=== PATIENT | male | born 1945 | race Caucasian/White ===

== ENCOUNTER → 2018-07-23 07:42 | Outpatient (CLI) | payer SELFPAY ==
[2018-07-16 10:25] VITALS: BMI 24.8
--- NOTE | 2018-07-23 07:52 | CT_ITS ---
STUDY: CT ABDOMEN AND PELVIS WITH CONTRAST REASON FOR EXAM: Male, 72 years old. Lymphocytosis on pre-op blood work. Left inguinal herniorrhaphy scheduled. RADIATION DOSAGE (If Supplied By Facility): CTDIvol = ( 15.13 ) mGy, DLP = ( 1455.48 ) mGycm TECHNIQUE: Transaxial images were obtained from the dome of the diaphragm to the symphysis pubis with oral contrast. 75mL ml of Isovue 300 contrast was administered. Sagittal and coronal images were reconstructed. Individualized dose optimization techniques were used for this CT. COMPARISON: CT of the chest, July 23, 2018. FINDINGS: The visualized lung bases are unremarkable. The visualized portions of the heart are within normal limits. Normal liver. Normal gallbladder and extrahepatic biliary system. Normal spleen. Normal pancreas. Normal bilateral adrenal glands. The right kidney is of normal size and enhancement. There are parapelvic cysts versus mild pelvocaliectasis. There is a 1.9 cm lower pole cortical cyst. No renal calculi. Normal visualized right ureter. The left kidney is of normal size and cortical thickness. There is normal contrast enhancement. There are multiple parapelvic renal cysts without renal calculi or hydronephrosis. Normal visualized left ureter. Normal visualized stomach. Normal small intestine. Normal colon. There is non-visualization of the appendix. Is minimal atherosclerotic changes of the abdominal aorta without aneurysm or dissection. Normal inferior vena cava. Normal retroperitoneum. Normal urinary bladder. Prostate is enlarged. There is no pelvic lymphadenopathy. No free air or free fluid is seen within the peritoneal cavity. There are bilateral inguinal hernias of omental fat. The left extends downward into the scrotum. Abdominal wall is otherwise unremarkable. There are diffuse degenerative changes of the visualized lumbar spine. CT/Abdomen/Pelvis WITH Contrast IMPRESSION: 1. Bilateral peripelvic and cortical cysts without other evidence of renal, ureteral or urinary bladder abnormality. 2. Enlarged prostate. 3. Bilateral inguinal hernias. 4. No other evidence of abdominal or pelvic abnormality. Electronically Signed: Shaggy Parr DO at 20:04 EST Tel [phone], Service support ,
--- NOTE | 2018-07-23 07:52 | CT_ITS ---
STUDY: CT SOFT TISSUE NECK WITH CONTRAST REASON FOR EXAM: Male, 72 years old. Lymphocytosis on pre-op blood work. Scheduled for left inguinal herniorrhaphy tomorrow. RADIATION DOSAGE (If Supplied By Facility): CTDIvol = ( 15.13 ) mGy, DLP = ( 1455.48 ) mGycm TECHNIQUE: The patient was scanned in a multi-detector CT scanner. High resolution transaxial imaging was performed following intravenous administration of 75mL ml of Isovue 300 contrast material. Sagittal and coronal images were reconstructed. Individualized dose optimization techniques were used for this CT. COMPARISON: None. FINDINGS: Normal bilateral parotid glands. Normal bilateral manager company spaces. Normal bilateral parapharyngeal spaces. Normal bilateral carotid spaces. Normal bilateral sublingual and submandibular glands and spaces. Normal visualized nasopharynx. Normal retropharyngeal space. Normal perivertebral space. There is mild prominence of the lateral faucial tonsil. The visualized tongue, tongue base and oropharynx are normal. The visualized cervical lymph nodes (levels I-) are within normal size limits, and maintain normal morphology. There is no demonstrated solid or cystic mass lesion. There is no abnormal contrast enhancement. Normal epiglottis, bilateral vallecula and hypopharynx. The pre-epiglottic and paraglottic adipose spaces are normal. Normal visualized bilateral piriform sinuses, aryepiglottic folds, vocal cords, and arytenoid-cricoid articulations. Normal subglottic trachea. Normal bilateral lobes of the thyroid gland. Normal visualized pulmonary apices. Normal visualized paranasal sinuses. There is multilevel degenerative changes of the cervical spine. CT/Soft Tissue Neck WITH Contrast IMPRESSION: 1. Mild prominence left tonsil. There is no other evidence of abnormality of the soft tissues of the neck. 2. Mild degenerative changes of the cervical spine. Electronically Signed: Shaggy Parr DO at 17:06 EST Tel [phone], Service support ,
--- NOTE | 2018-07-23 07:52 | CT_ITS ---
STUDY: CT CHEST WITH CONTRAST REASON FOR EXAM: Male, 72 years old. Lymphocytosis on pre-op blood work. Left inguinal herniorrhaphy scheduled for tomorrow. RADIATION DOSAGE (If Supplied By Facility): CTDIvol = ( 15.13 ) mGy, DLP = ( 1455.48 ) mGycm TECHNIQUE: Transaxial imaging was performed following intravenous administration of 75mL ml of Isovue 300 contrast material. Multiplanar coronal and sagittal images were reformatted. Individualized dose optimization techniques were used for this CT. COMPARISON: None. FINDINGS: The lungs are normal. There is no demonstrated pleural abnormality. Normal heart and pericardium. There are calcifications of the coronary arteries. There is nonspecific subcentimeter mediastinal lymphadenopathy. Normal hilar regions. Normal enhanced pulmonary arteries. There is minimal atherosclerotic tortuosity of the thoracic aorta without aneurysm or dissection. There are multi-level degenerative changes of the thoracic spine. There is no demonstrated abnormality of the visualized upper abdomen. CT/Chest WITH Contrast IMPRESSION: 1. No acute pulmonary abnormality. 2. Nonspecific subcentimeter mediastinal lymphadenopathy. 3. Atherosclerotic changes of the thoracic aorta and coronary arteries. 4. Mild degenerative changes of the thoracic spine. Electronically Signed: Shaggy Parr DO at 17:01 EST Tel [phone], Service support ,
== END ==
PROVIDERS: Family Provider Family Medicine; PCP Family Medicine; Referring Provider Internal Medicine Medical Oncology; Visit Provider Internal Medicine Medical Oncology
DX: D72.820 Lymphocytosis (symptomatic) (principal)
CPT/HCPCS: 70491; 71260; 74177; Q9967

== ENCOUNTER 2018-07-27 08:43 | Day surgery (SDC) | payer SELFPAY ==
[2018-07-13 13:15] VITALS: BMI 24.0
--- NOTE | 2018-07-13 15:00 | EKG12_ITS ---
Test Reason : PRE OP Blood Pressure : / mmHG Vent. Rate : 068 BPM Atrial Rate : 068 BPM P-R Int : 126 ms QRS Dur : 106 ms QT Int : 410 ms P-R-T Axes : 062 072 060 degrees QTc Int : 435 ms Normal sinus rhythm Normal ECG Confirmed by CHELSEA VALENTE, LINDA ([id number]), newspaper managing editor ISABELA RODRIGUEZ ([id number]) on 07/14/2018 3:56:09 PM Referred By: Anthony Evans Confirmed By:LINDA TRAN MD
[2018-07-13 16:11] LABS: Hematocrit 44.4 % (40-54); Hemoglobin 14.5 g/dl (13.0-16.5); Mean Corp Hgb Conc 32.7 g/gl (32-36); Mean Corpuscular Hgb 32.4 pg (27.0-32.0); Mean Corpuscular Volume 99.3 fL (80-94); Mean Platelet Vol. 9.7 fl (6.2-12.0); Platelet Count 283 K/mm3 (150-450); RBC Distribution Width CV 14.8 % (11.6-14.6); RBC Distribution Width SD 52.5 fl (35.1-43.9); Red Blood Count 4.47 M/mm3 (4.6-6.2)
[2018-07-13 16:16] LABS: Scan Indicated on CBC? Y/N YES- FLAGS NOTED; White Blood Count 39.7 K/mm3 (4.4-11.0)
[2018-07-13 16:30] LABS: Anion Gap 6 (5-15); BUN 19 mg/dL (7-18); BUN/Creat Ratio 20.2 RATIO (10-20); Calcium,Total 8.4 mg/dL (8.5-10.1); Chloride 105 mmol/L (98-107); Creatinine, Serum 0.94 mg/dL (0.70-1.30); EST Glomerular Filtration Rate 84 mL/min (>60); Est Glom Filt Rate - Afr Amer 102 mL/min (>60); Glucose 87 mg/dL (74-106); Sodium Level 141 mmol/L (136-145)
[2018-07-13 16:34] LABS: Differential Comment SCANNED
[2018-07-14 12:09] LABS: Pathologist Review Reviewed
[2018-07-16 10:25] VITALS: BMI 24.8
[2018-07-27] VITALS (10 sets, daily range): BP systolic 101–143; BP diastolic 53–73; PULSE 52–77; RESP 15–16; TEMP 36.1–36.8; O2SAT 92–100; BMI 24.9
[2018-07-27] MEDS: Cefazolin 2 GM in 0.9% Normal Saline 100 ML IV (10:48)
--- NOTE | 2018-07-27 10:48 | DCINST_ITS ---
Discharge Diet: Light diet - advance as tolerated - if you have questions about your diet instructions, please talk to you doctor. Discharge Activity: May Not Drive - for 1 week or while taking narcotic pain medicine. May shower in (days): 1 Lifting Restrictions: 10 pounds Call your doctor if your incision/area has: Continuous Slow Oozing, Sudden Increased Bleeding, Increased Pain/ Swelling, Increased Redness, Foul Smelling Discharge Call your doctor if you observe: Fever of 101 or Higher Suture Line Care: Avoid Pulling/Pushing, Avoid Pinching/Bending Additional Dressing/Incision Instructions:: Change or remove dressing in 4 days. Leave steri-strips in place for 1 week. Allergies/Adverse Reactions: Allergies No Known Allergies Allergy (Verified 07/22/18 16:34) Medications to take at Discharge Tamsulosin HCl [Flomax] 0.4 mg PO DAILY 07/22/18 Oxycodone HCl/Acetaminophen [Percocet 5/325] 1 tablet PO Q6H PRN PRN 3 Days #8 tablet 07/27/18 The following prescriptions were given: Oxycodone HCl/Acetaminophen [Percocet 5/325] 1 tablet PO Q6H PRN PRN 3 Days #8 tablet PRN Reason: Pain Primary Care Physician: Peterson Landrum MD [Primary Care Provider] - Test Results: Test results from this visit will be discussed in further detail at your follow- up appointment, if applicable. Please Follow Up With: Anthony Evans MD - [phone] When: Call to make an appointment to be seen in about 10 days.
[2018-07-27] MEDS: Bupivacaine Mpf 0.5% 30 ML VIAL (12:00)
--- NOTE | 2018-07-27 12:09 | PCM.OPRPT ---
Problem List (1) Recurrent right inguinal hernia Status: Acute (2) Left inguinal hernia Status: Acute Report of Operation Date of Procedure: 07/27/18 Pre-Operative Diagnosis: Recurrent indirect right inguinal hernia. New indirect left inguinal hernia Post-Operative Diagnosis: Same Surgery/Procedure Performed:: Laparoscopic recurrent right inguinal herniorrhaphy. Laparoscopic left inguinal herniorrhaphy Description of Surgical Findings:: Timeout and informed consent was obtained. 72-year-old gent was taken the operative placement table underwent general endotracheal intubation anesthesia. Ancef 2 g given intravenously preoperatively. The abdomen was sterilely prepped and draped. 30 cc of 0.5% Marcaine was used as a local anesthetic. Skin sites were pre-anesthetized. A vertical infraumbilical incision was created and holding sutures of 0 Vicryl placed. Veress needle inserted. Saline drop test performed. The abdomen insufflated with CO2 to a pressure of 10 mmHg pressure. 10mm trocar inserted. 10 mm scope inserted. No evidence of any trocar injuries. There is evidence of a recurrent indirect right inguinal hernia and a very large indirect left inguinal hernia. 5 mm trochars were placed in both the right and left lower quadrant. The peritoneum superior and lateral to the right internal ring was incised carried medially. There was scar tissue that was sharply transected free to transecting released the peritoneum this was completely dissected free set at the pubic tubercle internal ring direct space femoral area was completely identified. I then onur a similar tension in the left groin and the peritoneum superior lateral to the internal ring was incised and carried medially. Again that tissue was dissected free however the patient has a very large indirect left inguinal hernia with a very large sac. I teased the sac free absolutely as far as possible but then it became apparent that the sac was not going to easily free itself so I elected to transect the distal portion. I used electrified scissors to slowly carefully transect the peritoneal sac. The distal end was allowed to retract into the scrotum. I used hemo-lock clips were needed. The sac was then nicely transected and then I could complete the dissection. As on the right the indirect direct and femoral area were clearly identified. I then placed a large 3D Bard max mesh on the right and a similar product on the left. The right mesh was lot number [id number]. Reference #[id number]. Expiry date 05/15/2023. The left product was lot number [id number] [id number]. Reference #[id number]. Expiry date 05/15/2023. I then used secure strap lot number [id number] expiry date 11/2019. The mesh nicely rested in place bilaterally covering direct indirect and femoral areas. The mesh nicely briefly overlapped in the retropubic area. It was secured superiorly and medially with a secure strap. Very good positioning was achieved. The peritoneum was approximated to itself bilaterally to completely obliterate access to the mesh. The sac was so large that it remnant hung down and did not need to have the defect area repaired. It is of note that additionally at the beginning of the case of a ilioinguinal nerve block was performed under laparoscopic control bilaterally. Trochars were removed under visualization. The abdomen was allowed to deflate of the CO2. The fascia at the umbilicus approximated with a couple 0 Vicryl [id number] sutures. Skin edges approximated up to 4 Monocryl subdermal stitches. Steri-Strips and Telfa and OpSite dressings were applied. Sponge and instrument and needle counts were reported the surgeon be correct. Blood loss was minimal. Specimens none. Drains none. Blood loss minimal. Anthony Evans M.D., F.A.C.S. Type of Anesthesia:: General Anesthesiologist: Jaxon Cueva
--- NOTE | 2018-07-27 12:14 | OP.PCM_ITS ---
Problem List (1) Recurrent right inguinal hernia Status: Acute (2) Left inguinal hernia Status: Acute Report of Operation Date of Procedure: 07/27/18 Pre-Operative Diagnosis: Recurrent indirect right inguinal hernia. New indirect left inguinal hernia Post-Operative Diagnosis: Same Surgery/Procedure Performed:: Laparoscopic recurrent right inguinal herniorrhaphy. Laparoscopic left inguinal herniorrhaphy Description of Surgical Findings:: Timeout and informed consent was obtained. 72-year-old gent was taken the operative placement table underwent general endotracheal intubation anesthesia. Ancef 2 g given intravenously preoperatively. The abdomen was sterilely prepped and draped. 30 cc of 0.5% Marcaine was used as a local anesthetic. Skin sites were pre-anesthetized. A vertical infraumbilical incision was created and holding sutures of 0 Vicryl placed. Veress needle inserted. Saline drop test performed. The abdomen insufflated with CO2 to a pressure of 10 mmHg pressure. 10mm trocar inserted. 10 mm scope inserted. No evidence of any trocar injuries. There is evidence of a recurrent indirect right inguinal hernia and a very large indirect left inguinal hernia. 5 mm trochars were placed in both the right and left lower quadrant. The peritoneum superior and lateral to the right internal ring was incised carried medially. There was scar tissue that was sharply transected free to transecting released the peritoneum this was completely dissected free set at the pubic tubercle internal ring direct space femoral area was completely identified. I then onur a similar tension in the left groin and the peritoneum superior lateral to the internal ring was incised and carried medially. Again that tissue was dissected free however the patient has a very large indirect left inguinal hernia with a very large sac. I teased the sac free absolutely as far as possible but then it became apparent that the sac was not going to easily free itself so I elected to transect the distal portion. I used electrified scissors to slowly carefully transect the peritoneal sac. The distal end was allowed to retract into the scrotum. I used hemo-lock clips were needed. The sac was then nicely transected and then I could complete the dissection. As on the right the indirect direct and femoral area were clearly identified. I then placed a large 3D Bard max mesh on the right and a similar product on the left. The right mesh was lot number [id number] QUALITY [id number] [id number]. Reference #[id number]. Expiry date 05/15/2023. The left product was lot number CHEMISTRY QUALITY CONTROL ANALYST [id number]. Reference #[id number]. Expiry date 05/15/2023. I then used secure strap lot number [id number] expiry date 11/2019. The mesh nicely rested in place bilaterally covering direct indirect and femoral areas. The mesh nicely briefly overlapped in the retropubic area. It was secured superiorly and medially with a secure strap. Very good positioning was achieved. The peritoneum was approximated to itself bilaterally to completely obliterate access to the mesh. The sac was so large that it remnant hung down and did not need to have the defect area repaired. It is of note that additionally at the beginning of the case of a ilioinguinal nerve block was performed under laparoscopic control bilaterally. Trochars were removed under visualization. The abdomen was allowed to deflate of the CO2. The fascia at the umbilicus approximated with a couple 0 Vicryl [id number] sutures. Skin edges approximated up to 4 Monocryl subdermal stitches. Steri-Strips and Telfa and OpSite dressings were applied. Sponge and instrument and needle counts were reported the surgeon be correct. Blood loss was minimal. Specimens none. Drains none. Blood loss minimal. Anthony Evans M.D., F.A.C.S. Type of Anesthesia:: General Anesthesiologist: Jaxon Cueva
[2018-07-27] MEDS: HYDROcodone Bitartrate/Apap 5/325 Tablet PO (14:31)
== END 2018-07-27 16:00 | disposition home or self-care (01) ==
LOC: SDC 08:44 → AC 08:45
PROVIDERS: Family Provider Family Medicine; PCP Family Medicine; Referring Provider Surgery; Visit Provider Surgery
PROC: (CPT 49650; principal; 2018-07-27 10:45)
DX: K40.91 Unilateral inguinal hernia, without obstruction or gangrene, recurrent (principal); K40.90 Unilateral inguinal hernia, without obstruction or gangrene, not specified as recurrent; R33.9 Retention of urine, unspecified; D72.820 Lymphocytosis (symptomatic)
CPT/HCPCS: 00840; 49650; 49651; 36415; 80048; 85027; 93005; J7120; C1781; J2405

== ENCOUNTER 2024-04-13 14:24 | Inpatient (IN) | payer OTHER, SELFPAY ==
[2024-04-13] VITALS (7 sets, daily range): BP systolic 121–142; BP diastolic 67–85; PULSE 60–69; RESP 15–18; TEMP 36.2–36.6; O2SAT 96–99; BMI 23.9; BMI 23.3
--- NOTE | 2024-04-13 15:11 | EDS_ITS ---
HPI History of Present Illness Chief Complaint: Chest Pain Informant: patient Onset/Context/Timing Onset: Weeks (2) Activity at onset: sudden Timing: Intermittent and Lasts (5 to 10 minutes) Quality: Positive for Tightness Location: Left Chest Worsened By: Nothing Relieved By: Nothing Associated Symptoms: Positive for Palpitations; Negative for Nausea, Vomiting, Diaphoresis, Dyspnea, Cough, Fever, Lightheadedness or Acid Reflux Narrative Narrative: Patient presents with chest pain that has been intermittent over the last 2 weeks. Patient states that the pain comes on rather suddenly. Patient is lasted approximately 5 to 10 minutes. The patient describes it as a tightness. Patient states it is over the left side of his chest. Patient states nothing makes it better and nothing makes it worse. Patient admits to some palpitations with this. Patient denies any nausea or vomiting. Patient denies any shortness of breath. Patient denies any cough or fever. CVD Risk Factors: Negative for Hypertension, Diabetes, Hypercholesterolemia, Family History 1' </=55 or Smoking PE Risk Factors: Positive for Cancer; Negative for Recent Travel/Surgery, Recent Immobilization or Prior DVT or PE PFSH [facility] Medical History (Updated 04/13/24 @ 18:[address] Yevgeniy Buckner DO) CLL (chronic lymphocytic leukemia) Urinary retention Left inguinal hernia Recurrent right inguinal hernia Arthritis Allergy/AdvReac Type Severity Reaction Status Date / Time No Known Allergies Allergy Verified 04/13/24 14:25 Family History Mother Breast cancer Surgical History History of hernia repair (~07/2018) History of nasal surgery Hx of bone graft Hx of right inguinal hernia repair Hx of appendectomy Social History household members: spouse housing: house Smoking Status: Never smoker second hand exposure: No alcohol intake: never substance use type: does not use caffeine: Yes what type of physical activity do you participate in: bicycling frequency: 5-6 times per week seatbelt use: always ROS ROS ED Constitutional Constitutional ED: Denies chills or fever(s) Eyes Eyes: Denies blurry vision or change in vision ENT ENT ED: Denies rhinorrhea or sore throat Cardiovascular Cardiovascular: Reports chest pain and palpitations Respiratory/Chest Respiratory/Chest: Denies cough or dyspnea Gastrointestinal Gastrointestinal: Denies nausea or vomiting Genitourinary Genitourinary ED: Denies dysuria or hematuria Musculoskeletal Musculoskeletal: Denies back pain or neck pain Integumentary Denies abscess or rash Neurologic Neurologic: Denies headache(s) or weakness Allergic/Immunologic Allergic/Immunologic ED: Denies mouth swelling or urticaria EXAM Physical Exam Const Vital Signs: 04/13/24 14:25 04/13/24 15:46 04/13/24 16:25 Temperature 97.2 F L Temperature Source Temporal Pulse Rate 69 60 Respiratory Rate 17 15 Blood Pressure 140/85 H 142/71 H Blood Pressure Mean 103 94 Pulse Ox 96 98 99 Oxygen Delivery Method Room Air Room Air Room Air 04/13/24 18:00 Temperature Temperature Source Pulse Rate 64 Respiratory Rate 16 Blood Pressure 121/76 H Blood Pressure Mean 91 Pulse Ox 96 Oxygen Delivery Method Room Air Positive well nourished and well developed General Appearance ED: well developed and NAD HEENT Reports moist mucous membranes Neck supple and no JVD Chest Wall palpation of chest normal Resp normal respiratory effort and clear to auscultation bilaterally Cardio regular rate and regular rhythm GI soft to palpation, non-tender and non-distended Neuro oriented x3, CN's II-XII intact bilaterally and no sensory deficits noted Sensorium / Orientation: awake and alert Motor Exam: strength 5/5 throughout Psych mental status grossly normal Heart Score History: Slightly/Non-Suspicious ECG: Nonspecific Repolarization Age: >/= 65 years Risk Factors: No Risk Factors Troponin: >1 - <3 Normal Limit Score: 4 MDM MDM MDM Narrative Medical decision making narrative: Differential diagnosis includes cardiac dysrhythmia, cardiac ischemia, pneumonia, pneumothorax, electrolyte abnormality, pulmonary embolism, and anxiety. EKG will be obtained to assess for cardiac dysrhythmia and cardiac ischemia. Chest x-ray will be obtained to assess for pneumonia and pneumothorax. CBC will be obtained to assess for leukocytosis and anemia. Basic metabolic profile will be obtained to assess for electrolyte abnormality and renal function. High-sensitivity troponin will be obtained to assess for cardiac ischemia. 2-hour repeat high-sensitivity troponin will be obtained to assess for ongoing cardiac ischemia. D-dimer will be obtained to assess for pulmonary embolism. History & Record Review Additional record(s) reviewed:: Prior labs Lab Data Attestation: I reviewed the patient's lab results. Lab results narrative: CBC was reviewed. There is a leukocytosis of 64.0. This is consistent with previous results. Platelets were normal. D-dimer was reviewed and was elevated 2.65. Basic metabolic profile was reviewed and was essentially within normal limits. Initial high-sensitivity troponin was reviewed and was slightly elevated at 82. 2-hour repeat high-sensitivity troponin was reviewed and was slightly elevated at 88. Labs: Laboratory Results - last 24 hr 04/13/24 04/13/24 14:35 17:28 WBC 64.0 H* RBC 4.19 L Hgb 13.5 Hct 42.0 MCV 100.2 H MCH 32.2 H MCHC 32.1 RDW Std Deviation 55.8 H RDW Coeff of Praneeth 15.1 H Plt Count 261 MPV 10.1 Immature Gran % (Auto) 0.200 Neut % (Auto) 7.4 L Lymph % (Auto) 89.2 H [place] % (Auto) 2.6 Eos % (Auto) 0.2 Baso % (Auto) 0.4 Absolute Neuts (auto) 4.7 Absolute Lymphs (auto) 57.13 H Nucleated RBC % 0 Differential Comment SCANNED Diff Path Review May foll Smudge Cells 1+ H D-Dimer Quant (PE/DVT) 2.65 H* Sodium 139 Potassium 4.3 Chloride 107 Carbon Dioxide 28.0 Anion Gap 4 L BUN 20 H Creatinine 0.92 Estim Creat Clear Calc 57.20 Est GFR (MDRD) Af Amer 103 Est GFR (MDRD) Non-Af 85 BUN/Creatinine Ratio 21.8 H Glucose 101 Calcium 8.8 Troponin I High Sens 82 H 88 H Radiography Chest X-Ray - ED: 1 View, Read by ED Physician, Read by Radiologist and No Acute Disease Diagnostic Testing: Clinical Impression(s) from Imaging Studies Chest X-Ray 04/13/24 15:24 IMPRESSION: No acute abnormality is seen. Electronically Signed: Jose Smith MD at 15:33 EDT , Chest CTA 04/13/24 15:48 IMPRESSION: No demonstrated pulmonary embolism or arterial dissection. Electronically Signed: Alberto Huerta DO at 16:36 EDT , Portable 1 view chest x-ray was obtained. On my independent interpretation, lung dang are clear. There is normal cardiac silhouette. Bony thorax is normal. There is no acute process noted. Radiologist also interpreted the x- ray and agrees. Because of the elevated D-dimer, CTA of the chest was obtained. There is no evidence of pulmonary embolism or arterial dissection. This was interpreted by the radiologist and was also dependently reviewed by myself. EKG Initial EKG: Attestation: I personally reviewed and interpreted this EKG as follows: Interpretation: Sinus Rhythm (64) and Non-Specific ST Changes Comments: EKG was obtained. On my independent interpretation, it showed a normal sinus rhythm with a rate of 64. DE interval, QRS interval, and QTc inte rvals were all normal. Delta was normal. There are nonspecific ST-T wave changes. Prior EKG tracings: available for review Prior: Changed (There is some nonspecific T wave inversion in leads III and aVF which are new compared to previous EKG dated 07/13/2018) Management Discussion w/another healthcare provider: Hospitalist (Dr. Triana) and Quality Systems Engineer (Dr. Dior from cardiology) Treatment and Re-Evaluation :: Patient was given aspirin here. Patient states he did have 1 brief episode of chest pain while here in the emergency department. Patient states that this resolved spontaneously. Patient was advised of his findings. Patient has a HEART score of 4. Patient states he has not had a stress test or cardiac evaluation for several years. Because of this, I recommended admission to the hospital. Case was discussed with Dr. Dior from cardiology. He agrees with bringing the patient into the hospital obtaining a stress test. Case was discussed with the hospitalist. She will admit the patient to her service. Patient and family understood and were agreeable with plan. All questions were answered. Discharge Plan Triage Chief Complaint: Chest Pain ED Provider: Yevgeniy Buckner Dx/Rx/DC Orders Clinical Impression: Chest pain, CLL (chronic lymphocytic leukemia), Elevated troponin Primary Care Provider: Anthony Luo Referrals: [facility] Doctor,Out of [Non-Staff] - Print Language: Syriac Disposition Disposition: Acute Care Hospital [facility]
--- NOTE | 2024-04-13 15:11 | EKG12_ITS ---
Test Reason : CP Blood Pressure : / mmHG Vent. Rate : 064 BPM Atrial Rate : 064 BPM P-R Int : 128 ms QRS Dur : 088 ms QT Int : 404 ms P-R-T Axes : 066 063 -02 degrees QTc Int : 416 ms Normal sinus rhythm Nonspecific T wave abnormality Abnormal ECG Confirmed by Aries Dior ([id number]), international editorial producer RONEY HENDRICKS ([id number]) on 04/14/2024 10:15:18 AM Referred By: Confirmed By:Aries Dior
--- NOTE | 2024-04-13 15:24 | RAD_ITS ---
STUDY: X-RAY CHEST REASON FOR EXAM: Male, 78 years old. Chest pain TECHNIQUE: Single AP portable view of the chest. COMPARISON: None. FINDINGS: EKG electrodes are seen. The lungs are clear and expanded. There is no demonstrated pleural abnormality. Normal size heart. Normal mediastinum and judy. Normal visualized pulmonary arteries. Normal visualized aortic arch and descending thoracic aorta. There are diffuse degenerative changes of the visualized thoracic spine. Normal visualized ribs, clavicles, and shoulders. There is no demonstrated abnormality of the visualized soft tissue structures of the upper abdomen. RAD/Chest 1 View (Portable) IMPRESSION: No acute abnormality is seen. Electronically Signed: Jose Smith MD at 15:33 EDT ,
[2024-04-13 15:25] LABS: Absolute Lymphocyte Count 57.13 X10^3/uL (0.83-4.51); Absolute Neutrophil Count 4.7 X10^3/uL (2.0-7.7); Basophil# 0.26 X10^3/uL; Basophil% 0.4 % (0-1); Eosinophil# 0.11 X10^3/uL; Eosinophils% 0.2 % (0-5); Hemoglobin 13.5 g/dL (13.0-16.5); Lymphocyte # 57.13 X10^3/ul (0.83-4.51); Lymphocyte % 89.2 % (19-41); Mean Corp Hgb Conc 32.1 g/dL (32-36); Mean Corpuscular Hgb 32.2 pg (27.0-32.0); Mean Corpuscular Volume 100.2 fL (80-94); Mean Platelet Vol. 10.1 fl (6.2-12.0); Monocyte# 1.68 X10^3/uL; Monocyte% 2.6 % (0-10); NRBC Flagged by Analyzer 0 % (0-5); Neutrophil # 4.72 X10^3/uL (2.7-7.7); Neutrophil % 7.4 % (47-70); POSITIVE COUNT YES; POSITIVE DIFFERENTIAL YES; POSITIVE MORPHOLOGY YES; Platelet Count 261 K/mm3 (150-450); RBC Distribution Width CV 15.1 % (11.6-14.6); RBC Distribution Width SD 55.8 fl (35.1-43.9); Red Blood Count 4.19 M/mm3 (4.6-6.2)
[2024-04-13] MEDS: Aspirin 81 MG TAB.CHEW 324 MG PO (15:29)
[2024-04-13 15:41] LABS: Anion Gap 4 (5-15); BUN 20 mg/dL (7-18); BUN/Creat Ratio 21.8 RATIO (10-20); Calcium,Total 8.8 mg/dL (8.5-10.1); Chloride 107 mmol/L (98-107); Creatinine, Serum 0.92 mg/dL (0.70-1.30); EST Glomerular Filtration Rate 85 mL/min (>60); Est Glom Filt Rate - Afr Amer 103 mL/min (>60); Glucose 101 mg/dL (74-106); Potassium 4.3 mmol/L (3.5-5.1); Sodium Level 139 mmol/L (136-145); Troponin-I HS (w/2H Reflex) 82 pg/mL (3.0-78.0)
[2024-04-13 15:48] LABS: D-Dimer Quantitative (DVT/PE) 2.65 FEU/ug/m (0.27-0.49); Differential Indicated SCAN CRITERIA MET
--- NOTE | 2024-04-13 15:48 | CT_ITS ---
STUDY: CTA CHEST REASON FOR EXAM: Male, 78 years old. Elevated D-dimer RADIATION DOSAGE (If Supplied By Facility): CTDIvol = ( 10.00 ) mGy, DLP = ( 354.31 ) mGycm TECHNIQUE: The examination was performed with the intravenous administration of IV 100mL Isovue-370. Post-processing of the angiographic images was performed, with multiplanar reformation and 3D reconstruction. The protocol utilizes one or more of the following dose reduction techniques: automated exposure control, adjustment of mA and/or kV according to patient size,and/or use of iterative reconstruction technique. COMPARISON: FINDINGS: Normal enhancement of the main pulmonary artery and right and left pulmonary arteries. Normal enhancement of the bilateral peripheral pulmonary arteries. There is no demonstrated pulmonary embolism. Normal thoracic aorta and visualized great vessels. There is no demonstrated aortic dissection. Normal heart and pericardium. Normal mediastinum. Normal hilar regions. Normal visualized trachea and bronchi. The lungs are well expanded. Normal pulmonary parenchyma. Normal pleura. Normal chest wall structures. Degenerative vertebral changes. Normal visualized upper abdomen. CT/CTA Chest W/WO Contrast IMPRESSION: No demonstrated pulmonary embolism or arterial dissection. Electronically Signed: Alberto Huerta DO at 16:36 EDT ,
[2024-04-13 16:25] LABS: Differential Comment SCANNED; Smudge Cells 1+
[2024-04-13 17:21] LABS: Reflex Troponin-HS? (from REC) Y
[2024-04-13 17:52] LABS: Troponin-I HS 88 pg/mL (3.0-78.0)
--- NOTE | 2024-04-13 19:07 | HP.PCM.HOS_ITS ---
HPI - General General Date of Admission: 04/13/24 Date of Service: 04/13/24 Chief Complaint: Chest pain HPI Narrative MAURICIO BERNAL, is a 78-year-old male history of CLL presented to [facility] ED 04/13/2024 with intermittent chest pain over the past 2 weeks. Pain will come on suddenly last 5 to 10 minutes and is a tightness in the left side of his chest without anything making it better or worse. Occasionally will also have some palpitations. In the ED patient had troponin of 82 that up trended to 88 with nonspecific EKG, also a D-dimer of 2.65 so CTA obtained which did not show any PE or dissection. CBC with a white blood cell count of 64 consistent with his chronic CLL and otherwise workup negative. Pressure Control Supervisor contacted who are agreeable to admission and stress test. Hospitalist contacted for admission. Patient reports the intermittent chest pain with some left-sided tightness for 2 weeks with last episode an hour and a half ago lasting 10 minutes, presently having no symptoms. Denies any nausea, vomiting, shortness of breath. ROS otherwise completely negative. Prior to 2 weeks ago this is never happened before. When asked why patient specifically came in today he reports he went to his oncology hematology office and told them of the chest pain and was advised to come to the emergency department [facility] Medical History (Updated 04/13/24 @ 18:[address] Yevgeniy Buckner, ) Arthritis CLL (chronic lymphocytic leukemia) Left inguinal hernia Recurrent right inguinal hernia Urinary retention Home Medications ?Medication ?Instructions ?Recorded ?Last Taken ?Type NK 04/13/24 Unknown History Allergy/AdvReac Type Severity Reaction Status Date / Time No Known Allergies Allergy Verified 04/13/24 14:25 Family History Mother Breast cancer Surgical History History of hernia repair (~07/2018) History of nasal surgery Hx of appendectomy Hx of bone graft Hx of right inguinal hernia repair Social History household members: spouse housing: house Smoking Status: Never smoker second hand exposure: No alcohol intake: never substance use type: does not use caffeine: Yes what type of physical activity do you participate in: bicycling frequency: 5-6 times per week seatbelt use: always ROS ROS Narrative General: Denies fever/chills HENT: Denies headache, denies stuffy nose, denies sore throat EYES: Denies changes in vision Resp: Denies cough, denies shortness of breath Cardiac: Denies chest pain at present but was having intermittent left-sided chest tightness GI: Denies abdominal pain, denies changes in bowel, denies nausea/vomiting : Denies changes in urination Extremity: Denies swelling MSK: Denies weakness Neuro: Denies any numbness/tingling Heme: Denies any bleeding or bruising Skin: Denies rashes Psychiatric: No complaints voiced Vital Signs Vital Signs Vital Signs: 04/13/24 14:25 04/13/24 15:46 04/13/24 16:25 Temperature 97.2 F L Temperature Source Temporal Pulse Rate 69 60 Respiratory Rate 17 15 Blood Pressure 140/85 H 142/71 H Blood Pressure Mean 103 94 Pulse Ox 96 98 99 Oxygen Delivery Method Room Air Room Air Room Air 04/13/24 18:00 04/13/24 18:44 Temperature 97.8 F Temperature Source Pulse Rate 64 67 Respiratory Rate 16 16 Blood Pressure 121/76 H 139/67 H Blood Pressure Mean 91 91 Pulse Ox 96 96 Oxygen Delivery Method Room Air Weight Weight: 63.2 kg Body Mass Index (BMI) 23.9 Physical Exam Narrative General: Alert, oriented, no apparent distress HEENT: Atraumatic, normocephalic Eyes: Anicteric, normal conjunctiva, extraocular movements grossly intact Neck: Supple Respiratory: Clear to auscultation bilaterally, normal respiratory effort Cardiovascular: Regular rate and rhythm GI: Soft, nontender, nondistended Extremities: No edema Musculoskeletal: Moving all extremities Neuro: No overt focal neurological deficits Skin: No rashes appreciated Psych: Cooperative Results Lab / Micro Data 04/13/24 14:35 04/13/24 14:35 Labs: Laboratory Results - last 24 hr 04/13/24 14:35: WBC 64.0 H*, RBC 4.19 L, Hgb 13.5, Hct 42.0, MCV 100.2 H, MCH 32.2 H, MCHC 32.1, RDW Std Deviation 55.8 H, RDW Coeff of Praneeth 15.1 H, Plt Count 261, MPV 10.1, Immature Gran % (Auto) 0.200, Neut % (Auto) 7.4 L, Lymph % (Auto) 89.2 H, [place] % (Auto) 2.6, Eos % (Auto) 0.2, Baso % (Auto) 0.4, Absolute Neuts (auto) 4.7, Absolute Lymphs (auto) 57.13 H, Nucleated RBC % 0, Differential Comment SCANNED, Diff Path Review May foll, Smudge Cells 1+ H, D-Dimer Quant (PE/DVT) 2.65 H*, Sodium 139, Potassium 4.3, Chloride 107, Carbon Dioxide 28.0, Anion Gap 4 L, BUN 20 H, Creatinine 0.92, Estim Creat Clear Calc 57.20, Est GFR (MDRD) Af Amer 103, Est GFR (MDRD) Non-Af 85, BUN/Creatinine Ratio 21.8 H, Glucose 101, Calcium 8.8, Troponin I High Sens 82 H 04/13/24 17:28: Troponin I High Sens 88 H Imaging Radiology Impression Chest X-Ray 04/13/24 15:24 IMPRESSION: No acute abnormality is seen. Electronically Signed: Jose Smith MD at 15:33 EDT , Chest CTA 04/13/24 15:48 IMPRESSION: No demonstrated pulmonary embolism or arterial dissection. Electronically Signed: Alberto Huerta DO at 16:36 EDT , Assessment & Plan Assessment/Plan (1) Chest pain: (2) CLL (chronic lymphocytic leukemia): PLAN: Plan # Chest pain with mildly elevated troponin -EKG nonspecific -Trop 82 which up trended to 88 -Discussed with cardiology, if next troponin has significant increase we will need cardiology consult for possible heart cath however if it remains stable we will do stress echo in the a.m. and if negative patient can follow-up in the office on outpatient basis or if positive cardiology can see on the hospital -Admit to telemetry -Aspirin -Statin -Lipid panel in AM -Stress test echo ordered for AM # History of CLL -Patient with white blood cell count of 64, similar to how it had been previously in our system back in 2018 and 2019 -Patient follows Dr. Jo in the office -Continue outpatient follow-up #DVT ppx: Lovenox subcu Sarah Triana MD Charges/Coding Visit Charges Inpatient E&M: 44017 Init Hosp L1
--- NOTE | 2024-04-13 19:49 | EKG12_ITS ---
Test Reason : AM EKG Blood Pressure : / mmHG Vent. Rate : 061 BPM Atrial Rate : 061 BPM P-R Int : 138 ms QRS Dur : 088 ms QT Int : 434 ms P-R-T Axes : 054 049 007 degrees QTc Int : 436 ms Normal sinus rhythm Nonspecific T wave abnormality Abnormal ECG When compared with ECG of 13-APR-2024 14:31, MANUAL COMPARISON REQUIRED, DATA IS UNCONFIRMED Confirmed by Aries Dior ([id number]), editor farm journal JOSE MIGUEL SEALS ([id number]) on 04/16/2024 6:40:36 AM Referred By: RADHA Confirmed By:Aries Dior
[2024-04-13] MEDS: 0.9% Normal Saline (1000mL) 1,000 ML 50 ML IV (20:52)
[2024-04-13] MEDS: Atorvastatin Calcium 40 MG Tablet PO (21:01)
[2024-04-13] MEDS: 0.9% Saline Lock 10 ML Syringe IV (21:01)
[2024-04-13 21:30] LABS: Troponin-I HS 77 pg/mL (3.0-78.0)
[2024-04-14 02:00] VITALS: BP 121/68; PULSE 61; RESP 16; TEMP 36.7; O2SAT 97
[2024-04-14 05:41] VITALS: BP 123/71; PULSE 61; RESP 16; TEMP 36.4; O2SAT 96
[2024-04-14] MEDS: Aspirin E.C. 81 MG Tablet PO (05:43)
--- NOTE | 2024-04-14 05:55 | STEWCON_ITS ---
Reason For Study: CHEST PAIN Stress Results Protocol: JOSR Maximum Predicted HR: 144 bpm Target HR: 122 bpm % Maximum Predicted HR: 107 % Heart Stage Duration Rate BP Comment (mm:ss) (bpm) BASELINE 1:08 154 74/ STAGE 1 3:00 98 140/77 STAGE 2 3:00 108 152/78 STAGE 3 2:31 120 / INCREASED SOB, NO CHEST PAIN HAD SOME TIGHTNESS WHEN EXIITING THE TREADMILL AND IN TO RECOVERY, RECOVERY 70 138/80CHEST TIGHTNESS RESOLVED Stress Duration: 9:39 mm:ss Maximum Stress HR: 154 bpm Baseline Echocardiogram Findings Stress Echo Wall motion Data Resting WM Intermediate WM Stress WM Resting Wall Motion Wall Motion Stress No regional wall motion Post exercise stress, all LV wall abnormalities noted. segments augment except inferior septum. EKG Data Sinus rhythm with nonspecific ST-T wave changes. No diagnostic ischemic changes poststress. ECHO/Stress Test Echo W/Contrast Interpretation Summary Patient exercised on the treadmill according to the Josr protocol for 9 minute s and 39 seconds. No diagnostic ischemic changes on ECG. Hypokinesis of the inferior septal wall post stress, suggestive of ischemia. . Ordering Physician: Sarah Triana Performed By: Carolynn Harrell, ALICIA, RVT
--- NOTE | 2024-04-14 05:55 | EKG12_ITS ---
Test Reason : AM EKG Blood Pressure : / mmHG Vent. Rate : 057 BPM Atrial Rate : 057 BPM P-R Int : 136 ms QRS Dur : 088 ms QT Int : 430 ms P-R-T Axes : 057 067 006 degrees QTc Int : 418 ms Sinus bradycardia Nonspecific T wave abnormality Abnormal ECG When compared with ECG of 13-APR-2024 20:36, MANUAL COMPARISON REQUIRED, DATA IS UNCONFIRMED Confirmed by Aries Dior ([id number]), magazine editor JOSE MIGUEL SEALS ([id number]) on 04/16/2024 6:39:48 AM Referred By: RADHA Confirmed By:Aries Dior
[2024-04-14 06:43] LABS: Absolute Lymphocyte Count 49.05 X10^3/uL (0.83-4.51); Absolute Neutrophil Count 3.8 X10^3/uL (2.0-7.7); Basophil% 0.4 % (0-1); Eosinophil# 0.14 X10^3/uL; Eosinophils% 0.3 % (0-5); Hematocrit 40.5 % (40-54); Lymphocyte # 49.05 X10^3/ul (0.83-4.51); Lymphocyte % 90.1 % (19-41); Mean Corp Hgb Conc 32.1 g/dL (32-36); Mean Corpuscular Hgb 32.1 pg (27.0-32.0); Mean Platelet Vol. 9.6 fl (6.2-12.0); Monocyte# 1.16 X10^3/uL; Monocyte% 2.1 % (0-10); NRBC Flagged by Analyzer 0 % (0-5); Neutrophil # 3.81 X10^3/uL (2.7-7.7); POSITIVE COUNT YES; POSITIVE DIFFERENTIAL YES; POSITIVE MORPHOLOGY YES; Platelet Count 211 K/mm3 (150-450); RBC Distribution Width CV 15.2 % (11.6-14.6); RBC Distribution Width SD 55.9 fl (35.1-43.9); Red Blood Count 4.05 M/mm3 (4.6-6.2)
[2024-04-14 06:49] LABS: Differential Indicated SCAN CRITERIA MET; White Blood Count 54.4 K/mm3 (4.4-11.0)
[2024-04-14 07:15] LABS: Anion Gap 3 (5-15); BUN 16 mg/dL (7-18); BUN/Creat Ratio 20.2 RATIO (10-20); Calcium,Total 8.2 mg/dL (8.5-10.1); Chloride 108 mmol/L (98-107); Cholesterol 145 mg/dL (200); Creatinine, Serum 0.79 mg/dL (0.70-1.30); EST Glomerular Filtration Rate 101 mL/min (>60); Est Glom Filt Rate - Afr Amer 122 mL/min (>60); Estimated Creatinine Clearance 65.78 ml/min; Glucose 96 mg/dL (74-106); High Density Lipoprotein 35 mg/dL; Magnesium 2.3 mg/dL (1.6-2.6); Potassium 4.8 mmol/L (3.5-5.1); Sodium Level 138 mmol/L (136-145); Triglycerides 58 mg/dL; Very Low Density Lipoprotein 12 mg/dL (5-40)
[2024-04-14 08:00] VITALS: BP 129/75; PULSE 62; RESP 12; TEMP 36.6; O2SAT 96
--- NOTE | 2024-04-14 13:08 | CHAPLAIN ---
Type of Pastoral Visit _x__ Initial Visit ___ Follow-up Visit ___ On-call Visit ___ General Patient Visit ___ Spiritual Assessment ___ Family Conference ___ Bereavement ___ Rapid Response ___ Code Blue ___ Other (describe below) Pastoral Care Referral From _x__ Patient ___ Family ___ Nurse ___ Physician ___ Plating Technician ___ Probation Agent ___ Other (describe below) Sacrament/Intervention _x__ Active listening ___ Anointing ___ Sabianism ___ Bereavement ___ Communion ___ Yazmin exploration ___ ___ Life review _x__ Prayer ___ Reconciliation ___ Sacrament of Sick _x__ Supportive presence ___ Wedding ___ Other (describe below) Pastoral Comments patient and daughter are in the room; pt explains what happened at his doctor's appointment which ended up with a visit to the ED to check his heart; pt believes that he is doing fine now and requests prayers for health and strength; pt does not have any other concerns identified;
[2024-04-14 14:00] VITALS: BP 146/80; PULSE 61; RESP 12; TEMP 36.5; O2SAT 98
--- NOTE | 2024-04-14 16:14 | CON.PCM.CA_ITS ---
Assessment & Plan Assessment/Plan (1) CLL (chronic lymphocytic leukemia): PLAN: Patient's white blood cell count is 54,000 on today's check. He is not anemic and not thrombocytopenic. This is being monitored through the [facility] oncology group in [place]. (2) Chest pain: QUALIFIERS: Chest pain type: unspecified Qualified Code(s): R07.9 - Chest pain, unspecified PLAN: Patient's chest discomfort is somewhat predictable with him hurrying around to do things. It started about 2 weeks ago and has not aggressively progressed. He did have an episode at the end of the treadmill stress test where he went 9-1/2 minutes on a treadmill on a Josr protocol. The echo cardiogram portion suggested inferior ischemia. His EKG did not show any acute ischemic changes. His enzymes were minimally elevated on admission. Given these findings and clinical situation a left heart catheterization is indicated. (3) Cardiovascular stress test abnormal: PLAN: Patient walked 9 minutes and 39 seconds on a treadmill achieving a heart rate of 154. This is an excellent level of exercise there was no ischemic EKG changes documented. However, there was hypokinesis of the inferior septal wall post-rest suggestive of ischemia. The patient did develop his symptoms at the end of the treadmill stress prior to stopping the treadmill. This was consistent with the symptoms he has been having in his home environment. PLAN: Plan 1. Recommend invasive evaluation with left heart catheterization. This will be scheduled with Dr. Mcgarry for 04/15/2024. The procedure risk/benefit and alternatives were explained to the patient who voiced understanding and agrees to proceed. HPI Consult Data Date of Consult: 04/14/24 HPI Narrative Reason for Consultation: Abnormal stress test HPI Narrative: MAURICIO BERNAL, is a 78 M who presents with a 2-week history of predictive burning chest discomfort that lasts 5 to 10 minutes associated with rushing around with activity. At the time of the discomfort the patient has noticed a skipped beat. He denies any syncope or near syncope. He does carry history of CLL and at his [facility] appointment for oncology yesterday mentioned this chest discomfort and was sent to the emergency department. The patient had not had any symptoms until he got in the emergency department and then he developed short episode of discomfort. His troponins were measured at 82-88-77. EKG showed sinus bradycardia with nonspecific T wave changes in inferior leads. The patient reports that he got a good report from his oncologist yesterday that his counts are actually coming down. He has not been on any chemotherapy he is on some type of natural stimulant treatment. He has not changed any medications in the last several weeks. The patient denies any previous history of coronary disease he has never had an issue with his heart that he is aware of. There is no family history of early coronary disease the patient's never smoked he denies hypertension he is not hyperlipidemic by his knowledge and he is not diabetic. The patient was on no prescribed medications at the time of admission. The patient has been on enoxaparin aspirin 81 mg atorvastatin 40 mg daily since admission. Other than at the end of the treadmill stress test where he went 9 minutes he has not had any recurrence of his symptoms. He did have the sensation that lasted 5 to 10 minutes at the completion of his treadmill stress test. It resolved prior to the completion of the echocardiogram evaluation. There were no ECG changes consistent with ischemia on the treadmill. The echo revealed hypokinesis of the inferior septal wall after stress. This suggest ischemia in the inferior wall. [facility] Medical History (Updated 04/14/24 @ 16:[address] Aries Dior MD) CLL (chronic lymphocytic leukemia) Urinary retention Left inguinal hernia Recurrent right inguinal hernia Arthritis Home Medications ?Medication ?Instructions ?Recorded ?Last Taken ?Type NK 04/13/24 Unknown History Allergy/AdvReac Type Severity Reaction Status Date / Time No Known Allergies Allergy Verified 04/13/24 14:25 Family History Mother Breast cancer Surgical History History of hernia repair (~07/2018) History of nasal surgery Hx of bone graft Hx of right inguinal hernia repair Hx of appendectomy Social History household members: spouse housing: house Smoking Status: Never smoker second hand exposure: No alcohol intake: never substance use type: does not use caffeine: Yes what type of physical activity do you participate in: bicycling frequency: 5-6 times per week seatbelt use: always ROS Constitutional Constitutional: Reports as per HPI Eyes Eyes: Reports systems reviewed and no addt'l complaints, except as documented ENT HEENT: Reports systems reviewed and no addt'l complaints, except as documented Cardiovascular Cardiovascular: Reports as per HPI Respiratory/Chest Respiratory/Chest: Reports as per HPI Gastrointestinal Gastrointestinal: Reports systems reviewed and no addt'l complaints, except as documented Genitourinary Genitourinary: Reports systems reviewed and no addt'l complaints, except as documented Musculoskeletal Musculoskeletal: Reports systems reviewed and no addt'l complaints, except as documented Integumentary Integumentary: Reports systems reviewed and no addt'l complaints, except as documented Neurologic Neurologic: Reports systems reviewed and no addt'l complaints, except as documented Psychiatric Psychiatric: Reports systems reviewed and no addt'l complaints, except as documented Endocrine Endocrinology: Reports as per HPI Hematologic/Lymphatic Hematologic/Lymphatic: Reports as per HPI Allergic/Immunologic Allergic/Immunologic: Reports systems reviewed and no addt'l complaints, except as documented Physical Exam Const alert and oriented x3 HEENT normocephalic Eyes EOMs intact bilaterally Chest inspection of chest normal Resp normal respiratory effort and clear to auscultation bilaterally Cardio regular rate, regular rhythm, S1 normal heart sound, S2 normal heart sound, no murmurs, no rub and no gallops Peripheral Pulses: radial pulses present bilateral 2+ and posterior tibial pulses present bilateral 2+ GI normal to inspection, nondistended, normoactive bowel sounds Extremity no pedal edema Skin no rashes or lesions noted Neuro Neuro Narrative: Alert and oriented x 3 Psych mental status grossly normal Risk Stratification Risk Stratification Applicable: Yes Age >/= 65: Yes >/= 3 CAD Risk Factors (HTN, HLD, DM, family hx of CAD, or current smoker): No Aspirin Use in the Past 7 Days: No Severe Angina (>/= episodes in 24 hours): Yes EKG ST Changes >/= 0.5mm: No Positive Cardiac Marker: Yes CLAYTON Risk Stratification Score: 3 C[place] % Risk: 13% Risk Charges/Coding Visit Charges Inpatient E&M: 60274 Init Hosp L3 Objective Data Vital Signs: Vital Signs Temp Pulse Resp BP Pulse Ox O2 Del Method 97.7 F L 61 12 146/80 H 98 Room Air 04/14/24 14:00 04/14/24 14:00 04/14/24 14:04/14/24 14:04/14/24 14:04/14/24 14:00 Oxygen Delivery Method Room Air Weight: 135 lb 12.876 oz Body Mass Index (BMI) 23.3 Intake & Output: Intake and Output for Last 24 Hours 04/12/24 04/13/24 04/14/24 23:59 23:59 23:59 Intake Total 961.67 / 961.67 Balance 961.67 / 961.67 Lab / Micro Data 04/14/24 06:20 04/14/24 06:20 Labs: Laboratory Results - last 24 hr 04/13/24 14:35: Differential Comment SCANNED, Diff Path Review May autumn, Smudge Cells 1+ H 04/13/24 17:28: Troponin I High Sens 88 H 04/13/24 20:49: Troponin I High Sens 77 04/14/24 06:20: WBC 54.4 H*, RBC 4.05 L, Hgb 13.0, Hct 40.5, MCV 100.0 H, MCH 32.1 H, MCHC 32.1, RDW Std Deviation 55.9 H, RDW Coeff of Praneeth 15.2 H, Plt Count 211, MPV 9.6, Immature Gran % (Auto) 0.100, Neut % (Auto) 7.0 L, Lymph % (Auto) 90.1 H, [place] % (Auto) 2.1, Eos % (Auto) 0.3, Baso % (Auto) 0.4, Absolute Neuts (auto) 3.8, Absolute Lymphs (auto) 49.05 H, Nucleated RBC % 0, Differential Comment , Diff Path Review May autumn, Sodium 138, Potassium 4.8, Chloride 108 H, Carbon Dioxide 27.0, Anion Gap 3 L, BUN 16, Creatinine 0.79, Estim Creat Clear Calc 65.78, Est GFR (MDRD) Af Amer 122, Est GFR (MDRD) Non-Af 101, B UN/Creatinine Ratio 20.2 H, Glucose 96, Calcium 8.2 L, Magnesium 2.3, Triglycerides 58, Cholesterol 145, LDL Cholesterol 98, VLDL Cholesterol 12, HDL Cholesterol 35 L, TSH 2.780 Rhythm Strip Rhythm Strip: Sinus Rhythm Rate: 60 Cardiology Labs/Tests 04/14/24 06:20: WBC 54.4 H*, RBC 4.05 L, Hgb 13.0, Hct 40.5, MCV 100.0 H, MCH 32.1 H, MCHC 32.1, Plt Count 211, MPV 9.6, Immature Gran % (Auto) 0.100, Neut % (Auto) 7.0 L, Lymph % (Auto) 90.1 H, [place] % (Auto) 2.1, Eos % (Auto) 0.3, Baso % (Auto) 0.4, Absolute Neuts (auto) 3.8, Nucleated RBC % 0, Sodium 138, Potassium 4.8, Chloride 108 H, Carbon Dioxide 27.0, Anion Gap 3 L, BUN 16, Creatinine 0.79, Est GFR (MDRD) Af Amer 122, Est GFR (MDRD) Non-Af 101, BUN/Creatinine Ratio 20.2 H, Glucose 96, Calcium 8.2 L, Magnesium 2.3, Triglycerides 58, Cholesterol 145, LDL Cholesterol 98, VLDL Cholesterol 12, HDL Cholesterol 35 L Rhythm: EKG: ECHO: Stress Test: Cardiac Cath: PCI: CT Surgery: Holter monitor: EPS: PPM: CXR: Chest CT Scan: Radiography Diagnostic Testing: Radiology Impression Chest CTA 04/13/24 15:48 IMPRESSION: No demonstrated pulmonary embolism or arterial dissection. Electronically Signed: Alberto Huerta DO at 16:36 EDT Reading Location ID and State: [facility] / [place] Tel [phone], Service support , Stress Echocardiogram 04/14/24 05:55 Interpretation Summary Patient exercised on the treadmill according to the Josr protocol for 9 minutes and 39 seconds. No diagnostic ischemic changes on ECG. Hypokinesis of the inferior septal wall post stress, suggestive of ischemia. . Ordering Physician: Sarah Triana Performed By: Carolynn Harrell, RDFRED, RVT
--- NOTE | 2024-04-14 16:15 | PN.HOSP_ITS ---
Subjective Subjective Doing well, no issues overnight. Denies any chest pain currently Objective Data Objective Data Vital Signs: Vital Signs Temp Pulse Resp BP Pulse Ox O2 Del Method 97.7 F L 61 12 146/80 H 98 Room Air 04/14/24 14:00 04/14/24 14:00 04/14/24 14:00 04/14/24 14:00 04/14/24 14:00 04/14/24 14:00 Oxygen Delivery Method Room Air Weight: 135 lb 12.876 oz Body Mass Index (BMI) 23.3 Intake & Output: Intake and Output for Last 24 Hours 04/13/24 04/14/24 04/15/24 03:59 03:59 03:59 Intake Total 961.67 / 961.67 Balance 961.67 / 961.67 Lab / Micro Data 04/14/24 06:20 04/14/24 06:20 Labs: Laboratory Results - last 24 hr 04/13/24 14:35: Differential Comment SCANNED, Diff Path Review May autumn, Smudge Cells 1+ H 04/13/24 17:28: Troponin I High Sens 88 H 04/13/24 20:49: Troponin I High Sens 77 04/14/24 06:20: WBC 54.4 H*, RBC 4.05 L, Hgb 13.0, Hct 40.5, MCV 100.0 H, MCH 32.1 H, MCHC 32.1, RDW Std Deviation 55.9 H, RDW Coeff of Praneeth 15.2 H, Plt Count 211, MPV 9.6, Immature Gran % (Auto) 0.100, Neut % (Auto) 7.0 L, Lymph % (Auto) 90.1 H, [place] % (Auto) 2.1, Eos % (Auto) 0.3, Baso % (Auto) 0.4, Absolute Neuts (auto) 3.8, Absolute Lymphs (auto) 49.05 H, Nucleated RBC % 0, Differential Comment , Diff Path Review May autumn, Sodium 138, Potassium 4.8, Chloride 108 H, Carbon Dioxide 27.0, Anion Gap 3 L, BUN 16, Creatinine 0.79, Estim Creat Clear Calc 65.78, Est GFR (MDRD) Af Amer 122, Est GFR (MDRD) Non-Af 101, B UN/Creatinine Ratio 20.2 H, Glucose 96, Calcium 8.2 L, Magnesium 2.3, Triglycerides 58, Cholesterol 145, LDL Cholesterol 98, VLDL Cholesterol 12, HDL Cholesterol 35 L, TSH 2.780 Radiography Diagnostic Testing: Radiology Impression Chest CTA 04/13/24 15:48 IMPRESSION: No demonstrated pulmonary embolism or arterial dissection. Electronically Signed: Alberto Huerta DO at 16:36 EDT Reading Location ID and State: [facility] / [place] Tel [phone], Service support , Stress Echocardiogram 04/14/24 05:55 Interpretation Summary Patient exercised on the treadmill according to the Josr protocol for 9 minutes and 39 seconds. No diagnostic ischemic changes on ECG. Hypokinesis of the inferior septal wall post stress, suggestive of ischemia. . Ordering Physician: Sarah Triana Performed By: Carolynn Harrell, ALICIA, RVT Physical Exam Narrative General: Alert, Oriented x3, Cooperative, No apparent distress HEENT: Atraumatic, PERRLA, EOMI, Normocephalic Oral: Moist Mucosa Neck: Supple, No JVD Lungs: Clear to auscultation, Normal air movement, No rhonchi, No wheeze, No rales Cardiovascular: Regular rate, Regular Rhythm, Normal S1, Normal S2, No murmurs Abdomen: Soft, Non Tender, Non-Distended, No Hepato-splenomegaly Extremities: No edema, Capillary Refill Less than 3 Seconds Skin: No rashes, No breakdown Musculoskeletal: No Tenderness to Palpation of Joints or Extremities Neurological: No focal neurological deficits, Motor Exam 5/5 strength throughout, Sensory exam intact to light touch and pain Psych/Mental Status: Normal Affect, Appropriate Assessment & Plan Assessment/Plan (1) Chest pain: (2) CLL (chronic lymphocytic leukemia): PLAN: Plan 1. Chest pain slightly elevated troponin ? Stress echo showed hypokinesis of the inferior septal wall post stress ? Will consult cardiology ? Continue with aspirin and statin ? Will await further recommendations 2. History of CLL ? Follows with oncology as an outpatient DVT: Annemarie Charges/Coding Visit Charges Inpatient E&M: 87933 Subs Hosp L2
[2024-04-14 18:31] VITALS: BMI 23.3
[2024-04-14 20:00] VITALS: BP 130/62; PULSE 60; RESP 16; TEMP 36.5; O2SAT 100
[2024-04-14] MEDS: Atorvastatin Calcium 40 MG Tablet PO (21:49)
[2024-04-15] VITALS (12 sets, daily range): BP systolic 100–155; BP diastolic 59–86; PULSE 59–75; RESP 12–17; TEMP 36.5–36.7; O2SAT 95–98
--- NOTE | 2024-04-15 05:55 | EKG12_ITS ---
Test Reason : AM Blood Pressure : / mmHG Vent. Rate : 057 BPM Atrial Rate : 057 BPM P-R Int : 136 ms QRS Dur : 088 ms QT Int : 432 ms P-R-T Axes : 069 071 008 degrees QTc Int : 420 ms Sinus bradycardia NS INFERIOR T WAVE CHANGES When compared with ECG of 14-APR-2024 05:21, MANUAL COMPARISON REQUIRED, DATA IS UNCONFIRMED ABNORMAL Confirmed by Aries Dior ([id number]), digital editor JOSE MIGUEL SEALS ([id number]) on 04/16/2024 6:34:27 AM Referred By: Confirmed By:Aries Dior
[2024-04-15] MEDS: Aspirin E.C. 81 MG Tablet PO (06:14)
[2024-04-15 06:36] LABS: Absolute Lymphocyte Count 51.91 X10^3/uL (0.83-4.51); Absolute Neutrophil Count 4.3 X10^3/uL (2.0-7.7); Basophil# 0.07 X10^3/uL; Basophil% 0.1 % (0-1); Eosinophil# 0.14 X10^3/uL; Eosinophils% 0.2 % (0-5); Hematocrit 41.1 % (40-54); Hemoglobin 13.2 g/dL (13.0-16.5); Lymphocyte # 51.91 X10^3/ul (0.83-4.51); Lymphocyte % 89.9 % (19-41); Mean Corp Hgb Conc 32.1 g/dL (32-36); Mean Corpuscular Hgb 31.8 pg (27.0-32.0); Mean Platelet Vol. 9.7 fl (6.2-12.0); Monocyte# 1.16 X10^3/uL; NRBC Flagged by Analyzer 0 % (0-5); Neutrophil # 4.33 X10^3/uL (2.7-7.7); Neutrophil % 7.6 % (47-70); POSITIVE COUNT YES; POSITIVE DIFFERENTIAL YES; POSITIVE MORPHOLOGY YES; Platelet Count 219 K/mm3 (150-450); RBC Distribution Width CV 15.1 % (11.6-14.6); RBC Distribution Width SD 54.6 fl (35.1-43.9); Red Blood Count 4.15 M/mm3 (4.6-6.2)
[2024-04-15 06:45] LABS: Differential Indicated SCAN CRITERIA MET; White Blood Count 57.7 K/mm3 (4.4-11.0)
[2024-04-15 06:57] LABS: Anion Gap 3 (5-15); BUN 16 mg/dL (7-18); BUN/Creat Ratio 19.4 RATIO (10-20); Calcium,Total 8.9 mg/dL (8.5-10.1); Chloride 109 mmol/L (98-107); Creatinine, Serum 0.82 mg/dL (0.70-1.30); EST Glomerular Filtration Rate 97 mL/min (>60); Est Glom Filt Rate - Afr Amer 117 mL/min (>60); Estimated Creatinine Clearance 64.17 ml/min; Glucose 95 mg/dL (74-106); Potassium 4.6 mmol/L (3.5-5.1); Sodium Level 139 mmol/L (136-145)
[2024-04-15 08:31] LABS: Pathologist Review Reviewed
[2024-04-15 08:33] LABS: Pathologist Review Reviewed
--- NOTE | 2024-04-15 08:49 | CASEMGMT ---
Insurance review for hospitals In-network with [facility] insurance if transfer is recommended is as follows: [facility], [place], [facility], [place], [facility], [facility], [facility], [facility], [place], [facility]), and . Angeles Nassar, Discharge Planning Asst.
--- NOTE | 2024-04-15 09:02 | PN.CARD_ITS ---
Subjective Subjective Patient experienced 1 short-lived episode of chest discomfort overnight. He denies any this morning. The patient scheduled for left heart catheterization this morning. Objective Data Vital Signs: Vital Signs Temp Pulse Resp BP Pulse Ox O2 Del Method 98.1 F 61 16 120/70 98 Room Air 04/15/24 06:10 04/15/24 06:10 04/15/24 06:10 04/15/24 06:10 04/15/24 06:10 04/15/24 08:09 Oxygen Delivery Method Room Air Weight: 135 lb 12.876 oz Body Mass Index (BMI) 23.3 Intake & Output: Intake and Output for Last 24 Hours 04/13/24 04/14/24 04/15/24 23:59 23:59 23:59 Intake Total 961.67 / 961.67 0 / 0 Balance 961.67 / 961.67 0 / 0 Lab / Micro Data Attestation: I reviewed the patient's lab results. 04/15/24 06:19 04/15/24 06:19 Labs: Laboratory Results - last 24 hr 04/13/24 14:35: Diff Path Review Reviewed 04/14/24 06:20: Diff Path Review Reviewed 04/15/24 06:19: WBC 57.7 H*, RBC 4.15 L, Hgb 13.2, Hct 41.1, MCV 99.0 H, MCH 31.8, MCHC 32.1, RDW Std Deviation 54.6 H, RDW Coeff of Praneeth 15.1 H, Plt Count 219, MPV 9.7, Immature Gran % (Auto) 0.200, Neut % (Auto) 7.6 L, Lymph % (Auto) 89.9 H, [place] % (Auto) 2.0, Eos % (Auto) 0.2, Baso % (Auto) 0.1, Absolute Neuts (auto) 4.3, Absolute Lymphs (auto) 51.91 H, Nucleated RBC % 0, Sodium 139, Potassium 4.6, Chloride 109 H, Carbon Dioxide 27.0, Anion Gap 3 L, BUN 16, Creatinine 0.82, Estim Creat Clear Calc 64.17, Est GFR (MDRD) Af Amer 117, Est GFR (MDRD) Non-Af 97, BUN/Creatinine Ratio 19.4, Glucose 95, Calcium 8.9 Rhythm Strip Rhythm Strip: Sinus Rhythm Rate: 60 Cardiology Labs/Tests 04/15/24 06:19: WBC 57.7 H*, RBC 4.15 L, Hgb 13.2, Hct 41.1, MCV 99.0 H, MCH 31.8, MCHC 32.1, Plt Count 219, MPV 9.7, Immature Gran % (Auto) 0.200, Neut % (Auto) 7.6 L, Lymph % (Auto) 89.9 H, [place] % (Auto) 2.0, Eos % (Auto) 0.2, Baso % (Auto) 0.1, Absolute Neuts (auto) 4.3, Nucleated RBC % 0, Sodium 139, Potassium 4.6, Chloride 109 H, Carbon Dioxide 27.0, Anion Gap 3 L, BUN 16, Creatinine 0.82, Est GFR (MDRD) Af Amer 117, Est GFR (MDRD) Non-Af 97, BUN/Creatinine Ratio 19.4, Glucose 95, Calcium 8.9 Rhythm: EKG: ECHO: Stress Test: Cardiac Cath: PCI: CT Surgery: Holter monitor: EPS: PPM: CXR: Chest CT Scan: Radiography Diagnostic Testing: Radiology Impression Stress Echocardiogram 04/14/24 05:55 Interpretation Summary Patient exercised on the treadmill according to the Josr protocol for 9 minutes and 39 seconds. No diagnostic ischemic changes on ECG. Hypokinesis of the inferior septal wall post stress, suggestive of ischemia. . Ordering Physician: Sarah Triana Performed By: Carolynn Harrell, RDFRED, RVT Physical Exam Const alert and oriented x3 HEENT normocephalic Eyes EOMs intact bilaterally Neck no JVD Chest inspection of chest normal Resp normal respiratory effort Cardio regular rate, regular rhythm, S1 normal heart sound, S2 normal heart sound, no murmurs, no rub and no gallops Extremity no pedal edema Skin no rashes or lesions noted Neuro Neuro Narrative: Alert and oriented x 3 Psych mental status grossly normal Assessment & Plan Assessment/Plan (1) Cardiovascular stress test abnormal: PLAN: Stress test was abnormal consistent with inferior septal ischemic changes. The patient is scheduled for left heart catheterization to further evaluate his cardiovascular status this morning. Further recommendations be forthcoming with the results of the catheterization. (2) Chest pain: QUALIFIERS: Chest pain type: unspecified Qualified Code(s): R07.9 - Chest pain, unspecified PLAN: Chest discomfort is very suggestive of progressive accelerating angina. (3) CLL (chronic lymphocytic leukemia): PLAN: The patient is followed by the [facility] oncologist he is felt to be stable from a CLL standpoint he is on no therapy. PLAN: Plan 1. Left heart catheterization today by Dr. Mcgarry. 2. Further cardiovascular recommendations pending outcome of the catheterization. Charges/Coding Visit Charges Inpatient E&M: 49430 Subs Hosp L2
[2024-04-15 09:57] LABS: Atypical Lymphocyte 1+ %; Differential Comment SCANNED; Reactive Lymphocyte 1+
--- NOTE | 2024-04-15 10:25 | NURSING ---
Pt off floor to cath. Report called.
--- NOTE | 2024-04-15 12:29 | CL.I_ITS ---
Patient Name: MAURICIO BERNAL Study Date: 04/15/2024 Performing: Humza Mcgarry MD Ht: 64 inches 162.56 cm : 1945 Wt: 135.8 lbs 61.6 kg Age: 78 Gender: male BSA: 1.66 PROCEDURE(S) PERFORMED DC02-(77406)LHC/COR IC12-(96620/[id number])NUNU W/WO PTCA, SINGLE CORONARY ARTERY CLINICAL PROFILE AND CO-MORBIDITIES Indications: Suspected CAD Heart Failure: None Stress/Imaging Stress Echocardiogram: Yes Result: Positive Intermediate Risk Stress Echocardiogram: Positive Intermediate Risk Angina Classification Anginal Classification w/in 2 Weeks: CCS IV CAD Presentations: Unstable angina. CONCLUSIONS 70% Prox Mid, 80% Mid LAD 60% Prox LCX mm, post-dilated using 3.25 mm balloon, optimized proximally using 3.5 mm balloon 3.0 mm balloon RECOMMENDATIONS ASA Indefinitley Brilinta for at least 12 months If remains symptomatic despite maximal medical therapy, then staged PCI to LAD DESCRIPTION OF PROCEDURE The patient arrived to the procedure lab. The risks and benefits of the procedure as well as a full description of our services here and lack of surgical backup were fully explained to the patient and/or their significant other prior to the catheterization. The Timeout was completed, verifying the correct patient and procedure. The patient's procedural site was prepped and draped in the usual fashion. Local anesthetic was given subcutaneously to right radial region with Lidocaine 2%. Using a modified Seldinger technique, arterial access was obtained via the right radial artery, a 6Fr sheath was inserted.. Right Coronary Artery selective angiography was then performed in multiple views using a 5 Fr. 4.0 [place] catheter. Left Coronary Artery selective angiography was performed in multiple views using a 5 Fr. 4.0 [place] catheterThe images were reviewed and options discussed. A decision was then made to proceed with an Intervention, IVUS or other adjunct procedure. Arterial sheath was exchanged for a 6 Fr Sheath. runthrough Guide wire was advanced to the RCA AL 0.75 Guide catheter was inserted and engaged into the RCA EMERGE 2.5 X 20 Balloon catheter was inserted. Balloon catheter was advanced across lesion in the right coronary, mid. Angiogram performed pre balloon dilatation. PTCA balloon inflated at 8 atms for 11 secs. Angiogram performed post balloon dilatation. PTCA balloon inflated at 10 atms for 8 secs. DAVID FRONTIER 2.75 X 15 Drug Eluting stent was inserted. Drug Eluting stent was advanced across the lesion in the right coronary, distal. Angiogram performed pre stent deployment. Angiogram performed post stent deployment. NC EUPHORA 3.0 X 15 Balloon catheter was inserted post stent. Angiogram performed post balloon dilatation. DAVID FRONTIER 2.75 X 8 Drug Eluting stent was inserted. Drug Eluting stent was advanced across the lesion in the right coronary, distal. Angiogram performed pre stent deployment. Angiogram performed post stent deployment. NC EUPHORA 3.0 X 15 Balloon catheter was reinserted Balloon catheter was inserted post stent. DAVID FRONTIER 3.0 X 38 Drug Eluting stent was inserted. Drug Eluting stent was advanced across the lesion in the right coronary, mid. Angiogram performed post stent deployment. DAVID FRONTIER 3.0 X 22 Drug Eluting stent was inserted. Drug Eluting stent was advanced across the lesion in the right coronary, mid. NC EMERGE 3.25 X 20 Balloon catheter was inserted post stent. NC EUPHORA 3.5 X6 Balloon catheter was inserted post stent. Angiogram performed post balloon dilatation. The arterial sheath was pulled and a TR Band was applied for hemostasis 12 ML OF AIR CORONARY ANGIOGRAPHY DOMINANCE: Right Dominant LEFT MAIN: No significant disease noted LEFT ANTERIOR DESCENDING ARTERY: LAD: Tubular 80% Mid lesion in LAD Tubular 70% Mid lesion in LAD RIGHT CORONARY ARTERY: RCA: Tubular 70% Proximal lesion in RCA Tubular 99% Mid lesion in RCA Tubular 80% Distal lesion in RCA COLLATERAL FLOW: Collateral flow from LAD to RT LV-BR Collateral flow from LAD to RT LV-BR INTERVENTION INFORMATION LESION SITE: RCA (Mid) Lesion Complexity: High/C, lesion length: 58 mm, culprit lesion: Yes Pre Stenosis: 99 % Pre intervention CLAYTON flow: 2 PROCEDURE: Drug Eluting Stent with pre and post dilatation Post Stenosis: 0 % Post intervention CLAYTON flow: 3 Lesion Devices: Terumo .014 180cm Runthrough Extra Floppy straight Cordis 6 Fr AL.75 100cm Guide Catheter Sung Sci EMERGE MR 2.50x20 BALLOON Medtronic 3.0 x 38 DAVID FRONTIER NUNU Medtronic 3.0 x 22 DAVID FRONTIER NUNU Sung Sci NC EMERGE MR 3.25x20 BALLOON Medtronic NC EUPHORA RX 3.5x06 BALLOON LESION SITE: RCA (Distal) Lesion Complexity: High/C, lesion length: 22 mm, culprit lesion: No Pre Stenosis: 80 % Pre intervention CLAYTON flow: 3 PROCEDURE: Drug Eluting Stent with post dilatation Post Stenosis: 0 % Post intervention CLAYTON flow: 3 Lesion Devices: Terumo .014 180cm Runthrough Extra Floppy straight Cordis 6 Fr AL.75 100cm Guide Catheter Medtronic 2.75 x 15 DAVID FRONTIER NUNU Medtronic NC EUPHORA RX 3.0x15 BALLOON Medtronic 2.75 x 08 DAVID FRONTIER NUNU COMPLICATIONS No Complications PROCEDURE MEDICATIONS Versed 1 mg IV Fentanyl 50 mcg IV Oxygen: 2 L/min via nasal cannula Brilinta 180 mg PO @ 04/15/2024 11:29:53 Heparin given IA 04/15/2024 11:00:48 Heparin 5000 unit(s) IV 04/15/2024 11:23:08 Heparin 2000 unit(s) IV 04/15/2024 11:37:51 Heparin 3000 unit(s) IV 04/15/2024 12:13:04 Nitro 100 mcg IC 04/15/2024 11:31:22 Nitro 100 mcg IC 04/15/2024 11:31:22 Verapamil 2.5mg, Ntg 200mcgs, 2000 units of Heparin given IA 04/15/2024 11:00:48 IV Bolus: .9 NaCl 250 ml total 04/15/2024 11:31:28 SUMMARY OF HEMODYNAMIC DATA Time AIR REST ECG 10:45:05 ECG 10:45:23 AO 120/71 (92) SA 11:11:42 AO 114/62 (80) 11:14:46 AO 119/66 (86) 11:16:09 AO 116/60 (86) 11:26:26 AO 134/72 (98) 11:29:45 AO 131/69 (95) 11:36:07 AO 167/76 (112) 11:59:11 Signed By Humza Mcgarry MD On 04/20/2024 09:22:31 Signed By Humza Mcgarry MD On 04/15/2024 12:28:36 Humza Mcgarry MD
--- NOTE | 2024-04-15 12:30 | EKG12_ITS ---
Test Reason : PCI Blood Pressure : / mmHG Vent. Rate : 062 BPM Atrial Rate : 062 BPM P-R Int : 140 ms QRS Dur : 088 ms QT Int : 420 ms P-R-T Axes : 063 046 -22 degrees QTc Int : 426 ms Normal sinus rhythm Possible Inferior infarct , age undetermined Abnormal ECG Confirmed by Aries Dior ([id number]), makeup editor JOSE MIGUEL SEALS ([id number]) on 04/16/2024 6:32:45 AM Referred By: Confirmed By:Aries Dior
[2024-04-15] MEDS: 0.9% Normal Saline (1000mL) 1,000 ML 150 ML IV (12:55)
[2024-04-15 13:39] LABS: ACT Activated Clotting Time 214 sec (74-137)
--- NOTE | 2024-04-15 13:50 | PN.HOSP_ITS ---
Subjective Subjective Doing well, no issues overnight. Had slight chest pain but that since resolved Objective Data Objective Data Vital Signs: Vital Signs Temp Pulse Resp BP Pulse Ox O2 Del Method 98.1 F 68 17 149/84 H 98 Room Air 04/15/24 10:12 04/15/24 12:58 04/15/24 12:58 04/15/24 12:58 04/15/24 12:58 04/15/24 12:58 Oxygen Delivery Method Room Air Weight: 135 lb 12.876 oz Body Mass Index (BMI) 23.3 Intake & Output: Intake and Output for Last 24 Hours 04/14/24 04/15/24 04/16/24 03:59 03:59 03:59 Intake Total 961.67 / 961.67 0 / 0 Balance 961.67 / 961.67 0 / 0 Lab / Micro Data 04/15/24 06:19 04/15/24 06:19 Labs: Laboratory Results - last 24 hr 04/13/24 14:35: Diff Path Review Reviewed 04/14/24 06:20: Diff Path Review Reviewed 04/15/24 06:19: WBC 57.7 H*, RBC 4.15 L, Hgb 13.2, Hct 41.1, MCV 99.0 H, MCH 31.8, MCHC 32.1, RDW Std Deviation 54.6 H, RDW Coeff of Praneeth 15.1 H, Plt Count 219, MPV 9.7, Immature Gran % (Auto) 0.200, Neut % (Auto) 7.6 L, Lymph % (Auto) 89.9 H, [place] % (Auto) 2.0, Eos % (Auto) 0.2, Baso % (Auto) 0.1, Absolute Neuts (auto) 4.3, Absolute Lymphs (auto) 51.91 H, Nucleated RBC % 0, Differential Comment SCANNED, Diff Path Review May foll, Atypical Lymphocytes 1+, Reactive Lymphocytes 1+, Sodium 139, Potassium 4.6, Chloride 109 H, Carbon Dioxide 27.0, Anion Gap 3 L, BUN 16, Creatinine 0.82, Estim Creat Clear Calc 64.17, Est GFR (MDRD) Af Amer 117, Est GFR (MDRD) Non-Af 97, BUN/Creatinine Ratio 19.4, Glucose 95, Calcium 8.9 04/15/24 12:08: Activated Clotting Time 214 H Rhythm Strip Rhythm Strip: Sinus Rhythm Rate: 60 Physical Exam Narrative General: Alert, Oriented x3, Cooperative, No apparent distress HEENT: Atraumatic, PERRLA, EOMI, Normocephalic Oral: Moist Mucosa Neck: Supple, No JVD Lungs: Clear to auscultation, Normal air movement, No rhonchi, No wheeze, No rales Cardiovascular: Regular rate, Regular Rhythm, Normal S1, Normal S2, No murmurs Abdomen: Soft, Non Tender, Non-Distended, No Hepato-splenomegaly Extremities: No edema, Capillary Refill Less than 3 Seconds Skin: No rashes, No breakdown Musculoskeletal: No Tenderness to Palpation of Joints or Extremities Neurological: No focal neurological deficits, Motor Exam 5/5 strength throughout, Sensory exam intact to light touch and pain Psych/Mental Status: Normal Affect, Appropriate Assessment & Plan Assessment/Plan (1) Chest pain: QUALIFIERS: Chest pain type: unspecified Qualified Code(s): R07.9 - Chest pain, unspecified (2) CLL (chronic lymphocytic leukemia): PLAN: Plan 1. Chest pain slightly elevated troponin ? Stress echo showed hypokinesis of the inferior septal wall post stress ?On heart cath today he was found to have 70% proximal mid and 80% mid LAD stenosis with a 60% proximal left circumflex blockage. Had a stent placed ? Continue with aspirin and statin, given the stone will add Brilinta 2. History of CLL ? Follows with oncology as an outpatient DVT: Annemarie Charges/Coding Visit Charges Inpatient E&M: 08264 Subs Hosp L2
--- NOTE | 2024-04-15 14:57 | CRPHASE1_ITS ---
Patient Communication Patient Information Former Patient:: Phase I PHII Cardiac Rehab Discussed with Patient:: Yes Guide to Cardiac Rehab Given to Patient:: Yes Cardiac Rehab Facility Choice List Given to Patient:: Yes Communication to Cardiac Rehab Choice Program [facility] CR PHII:: Communication Given to CR Choice Program Other:: Communication Given to CR Lion Trainer:: Humza Mcgarry Sessions:: 36 sessions - 3 days/wk, 12 weeks Cardiac Rehabilitation Info Program Information Cardiac Rehabilitation Program Information: Cardiac Rehab The cardiac rehab team at [facility] consists of highly skilled exercise physiologists, nurses, respiratory therapists and physicians working together with you. Our purpose is to help you have a full recovery and achieve the goals you set for yourself. Over the years many of our patients have returned to activities they assumed they would never do again! We can help restore your confidence and motivation to make lifestyle changes that can have a significant impact on your health and quality of life! We can help answer questions and concerns you may have about exercise, lifestyle, medications, diet, stress and anxiety which are common following a hospitalization. WE monitor ECG and vital signs during exercise and discuss your progress with you and report to your physician(s). Cardiac Rehab is proven to help reduce readmissions, improve functional capacity and lower recurrence of problems with your heart. Our Cardiac Rehab program is Certified by the [place] [employer]-Vascular and Pulmonary [employer] (AACVPR) and Accredited by the [place] [employer] through our [facility]. You can contact us at . We invite you to call us with your questions or to get started in our program. If you have other questions or concerns be sure to ask your physician/provider during your follow-up visit. WE look forward to seeing you!
--- NOTE | 2024-04-15 14:57 | CRPH1.INSTRU ---
General Education Discussed with Patient CAD and cardiac anatomy and function:: Patient communicates acknowledgment Explanation of diagnoses and procedures:: Patient communicates acknowledgment Sign/Symptoms of RI:: Patient communicates acknowledgment Antiplatelet therapy: Patient communicates acknowledgment Proper use of NTG-SL: Patient communicates acknowledgment Emergency procedures and activation of EMS: Patient communicates acknowledgment Compliance of all prescribed medications: Patient communicates acknowledgment Smoking Risk Factors Patient Nicotine/Smoking Risk Factors Are:: Never smoked Response Code Nicotine/Smoking Response Code:: Patient communicates acknowledgment Dyslipidemia Response Code Dyslipidemia Response Code:: Patient communicates acknowledgment, Family communicates acknowledgment and Patient returns demonstration Overweight/Obesity Recommendations Recommendations Include:: Exercise 5-7 times/week Response Code Overweight/Obesity:: Not instructed Hypertension Recommendations Recommendations Include:: Maintain BP <130/85 Response Code Hypertension:: Patient communicates acknowledgment Heart Disease Recommendations Recommendations Include:: Educated family members of their risk and Educated family members of importance of prevention of heart disease Response Code Heart Disease Response Code:: Patient communicates acknowledgment Diabetes Response Code Diabetes:: Not instructed Metabolic Syndrome Risk Factors Patient Metabolic Syndrome Risk Factors Are [3 of 5]:: Hypertension Recommendations Recommendations Include:: Reinforce compliance to risk factor modifications and Encouraged follow-up with Primary Care Physician Response Code Metabolic Syndrome Response Code:: Patient communicates acknowledgment Sedentary Risk Factors Patient Sedentary Risk Factors Are:: Lack of regular exercise Recommendations Recommendations Include:: Aerobic exercise 5-7 times/week for 20-30 minutes continuously, Benefits of regular exercise and Discussed home walking program Response Code Sedentary Response Code:: Patient communicates acknowledgment Stress Risk Factors Patient Stress Risk Factors Are:: Patient denies stress as a risk factor Recommendations Recommendations Include:: Identification of stressors, and assessment of coping skills and Stress management techniques Response Code Stress Response Code:: Patient communicates acknowledgment
[2024-04-15] MEDS: TICAGRELOR 90 MG TABLET PO (20:54)
[2024-04-15] MEDS: Metoprolol Tartrate 25 MG Tablet 12.5 MG PO (20:54)
[2024-04-15] MEDS: Atorvastatin Calcium 40 MG Tablet PO (20:55)
[2024-04-16 02:55] VITALS: BP 127/70; PULSE 59; RESP 14; TEMP 36.3; O2SAT 96
[2024-04-16 05:37] LABS: Hematocrit 42.3 % (40-54); Hemoglobin 13.6 g/dL (13.0-16.5); Mean Corp Hgb Conc 32.2 g/dL (32-36); Mean Corpuscular Hgb 31.9 pg (27.0-32.0); Mean Corpuscular Volume 99.3 fL (80-94); POSITIVE COUNT YES; Platelet Count 231 K/mm3 (150-450); RBC Distribution Width CV 15.1 % (11.6-14.6); RBC Distribution Width SD 54.4 fl (35.1-43.9); Red Blood Count 4.26 M/mm3 (4.6-6.2)
[2024-04-16 05:40] LABS: Scan Indicated on CBC? Y/N YES- FLAGS NOTED
[2024-04-16 06:07] LABS: ALB/GLOB Ratio 1.2 RATIO (0.9-2.4); AST(SGOT) 18 U/L (15-37); Alanine Aminotransfer ALT/SGPT 11 U/L (16-61); Albumin, Serum 3.2 g/dL (3.2-5.0); Alkaline Phosphatase 59 U/L (45-117); Anion Gap 6 (5-15); BUN 16 mg/dL (7-18); BUN/Creat Ratio 19.2 RATIO (10-20); Calcium,Total 8.5 mg/dL (8.5-10.1); Chloride 108 mmol/L (98-107); Creatinine, Serum 0.84 mg/dL (0.70-1.30); EST Glomerular Filtration Rate 95 mL/min (>60); Est Glom Filt Rate - Afr Amer 115 mL/min (>60); Estimated Creatinine Clearance 62.65 ml/min; Globulin 2.6 g/dL (2.2-4.2); Glucose 91 mg/dL (74-106); Potassium 3.9 mmol/L (3.5-5.1); Protein, Total 5.8 g/dL (6.4-8.2); Sodium Level 138 mmol/L (136-145)
[2024-04-16 07:36] VITALS: O2SAT 98
[2024-04-16 09:00] VITALS: BP 137/58; PULSE 77; RESP 18; TEMP 36.6; O2SAT 95
[2024-04-16 09:01] VITALS: PULSE 83
[2024-04-16] MEDS: Aspirin E.C. 81 MG Tablet PO (09:01)
[2024-04-16] MEDS: Metoprolol Tartrate 25 MG Tablet 12.5 MG PO (09:01)
[2024-04-16] MEDS: TICAGRELOR 90 MG TABLET PO (09:01)
--- NOTE | 2024-04-16 09:47 | PN.CARD_ITS ---
Subjective Subjective Pt seen and examined today. He has not had any chest pain or worsening shortness of breath. On his monitor he was noted to have a short run of SVT. He was not symptomatic with this. Objective Data Vital Signs: Vital Signs Temp Pulse Resp BP Pulse Ox O2 Del Method 97.8 F 83 18 137/58 H 95 Room Air 04/16/24 09:00 04/16/24 09:01 04/16/24 09:00 04/16/24 09:00 04/16/24 09:00 04/16/24 09:00 Oxygen Delivery Method Room Air Weight: 135 lb 12.876 oz Body Mass Index (BMI) 23.3 Intake & Output: Intake and Output for Last 24 Hours 04/14/24 04/15/24 04/16/24 23:59 23:59 23:59 Intake Total 961.67 / 961.67 1240 / 1240 Output Total 600 / 600 Balance 961.67 / 961.67 640 / 640 Lab / Micro Data 04/16/24 04:55 04/16/24 04:55 Labs: Laboratory Results - last 24 hr 04/15/24 06:19: Differential Comment SCANNED, Diff Path Review May autumn, Atypical Lymphocytes 1+, Reactive Lymphocytes 1+ 04/15/24 12:08: Activated Clotting Time 214 H 04/16/24 04:55: WBC 59.0 H*, RBC 4.26 L, Hgb 13.6, Hct 42.3, MCV 99.3 H, MCH 31.9, MCHC 32.2, RDW Std Deviation 54.4 H, RDW Coeff of Praneeth 15.1 H, Plt Count 231, MPV 10.0, Diff Path Review May autumn, Sodium 138, Potassium 3.9, Chloride 108 H, Carbon Dioxide 24.0, Anion Gap 6, BUN 16, Creatinine 0.84, Estim Creat Clear Calc 62.65, Est GFR (MDRD) Af Amer 115, Est GFR (MDRD) Non-Af 95, BUN/Creatinine Ratio 19.2, Glucose 91, Calcium 8.5, Total Bilirubin 1.00, AST 18, ALT 11 L, Alkaline Phosphatase 59, Total Protein 5.8 L, Albumin 3.2, Globulin 2.6, Albumin/Globulin Ratio 1.2 Rhythm Strip Rhythm Strip: Sinus Rhythm Rate: 60 Cardiology Labs/Tests 04/16/24 04:55: WBC 59.0 H*, RBC 4.26 L, Hgb 13.6, Hct 42.3, MCV 99.3 H, MCH 31.9, MCHC 32.2, Plt Count 231, MPV 10.0, Sodium 138, Potassium 3.9, Chloride 108 H, Carbon Dioxide 24.0, Anion Gap 6, BUN 16, Creatinine 0.84, Est GFR (MDRD) Af Amer 115, Est GFR (MDRD) Non-Af 95, BUN/Creatinine Ratio 19.2, Glucose 91, Calcium 8.5, Total Bilirubin 1.00 Rhythm: Sinus rhythm, occasional PVCs, 1 short run of SVT. Physical Exam Const alert and oriented x3 HEENT normocephalic Eyes EOMs intact bilaterally Neck no JVD Chest inspection of chest normal Resp normal respiratory effort and clear to auscultation bilaterally Cardio regular rate, regular rhythm, S1 normal heart sound, S2 normal heart sound, no murmurs, no rub and no gallops Extremity no pedal edema Extremity Narrative: Right wrist, no hematoma noted. No bruit noted. This was from cath site. Skin no rashes or lesions noted Neuro Neuro Narrative: Alert and oriented x 3 Psych mental status grossly normal Assessment & Plan Assessment/Plan (1) S/P coronary artery stent placement: PLAN: Patient underwent stenting to his RCA. If he continues to have chest discomfort would then consider a staged PCI to his LAD. He was started on Brilinta. He is aware that he needs to continue with the Brilinta for at least 1 year prior to stopping. If he finds that this is too costly for him, he was advised to call our office and then we could switch him over to Plavix. He will also continue with his aspirin, atorvastatin and metoprolol. (2) SVT (supraventricular tachycardia): PLAN: Patient did have 1 short run of SVT that was noted on his monitor. He was not symptomatic with this. For now he will continue with his current dose of metoprolol. Will reevaluate this on an outpatient basis if needed. (3) CLL (chronic lymphocytic leukemia): PLAN: The patient is followed by the [facility] oncologist he is felt to be stable from a CLL standpoint he is on no therapy. Charges/Coding Visit Charges Inpatient E&M: 29142 Subs Hosp L2
[2024-04-16 10:10] VITALS: BP 121/72; PULSE 65; RESP 18; TEMP 36.6; O2SAT 100
--- NOTE | 2024-04-16 10:39 | DCINST_ITS ---
Discharge Instructions Diet Discharge Diet: Low fat / Low cholesterol Activity Discharge Activity: Return to Normal Activity Dressing / Incision Call your doctor if you observe: Fever of 101 or Higher, Shortness of breath, Dizziness, Fainting spells, Swelling in the ankles, Chest pain and Increased palpitations (irregular heartbeat) Follow Up Care Test Results: Test results from this visit will be discussed in further detail at your follow- up appointment, if applicable. Discharge Plan Admission Admit Date/Time: 04/14/24 18:04 Attending Provider: Andre Hicks Primary Care Provider: Anthony Luo Consulting Providers: Sarah Triana; Aries Dior Discharge Orders/Prescriptions Prescriptions: New atorvastatin 40 mg Tablet 40 mg PO QHS 30 Days Qty: 30 2RF aspirin 81 mg Tablet,Delayed Release (Dr/Ec) 81 mg PO BREAKFAST 30 Days Qty: 30 2RF metoprolol tartrate 25 mg Tablet 12.5 mg PO BID 30 Days Qty: 30 2RF Brilinta 90 mg Tablet 90 mg PO BID 30 Days Qty: 60 2RF Referrals / Follow Up: Anthony Luo MD [Primary Care Provider] - [facility] Doctor,Out of [Non-Staff] - Pascale Cunningham PA [Med Staff - [facility] Practice Prof] - 05/17/24 9:30 am Disposition Disposition (needs filled in before D/C Order can be placed): Home, Self Care
--- NOTE | 2024-04-16 11:10 | CASEMGMT ---
RN CM Face to Face with patient for initial transition planning/care coordination assessment. RN CM introduced self and role at [facility]. Patient sitting in chair, alert and oriented, daughter at beside. Patient willing to participate in assessment and is able to answer all questions appropriately. Care providers, pharmacy, and demographics verified. Strata: 2 PCP: Valerio Specialists: Deysi, oncologist; Preferred Pharmacy: [facility]; [facility] Retail at discharge Insurance: [facility] Prescription Benefit: none, [facility] Retail to apply [employer] card Living Will/HPOA: none LNOK: , daughter Living Arrangements: Patient lives with in a single story home with ramps to enter the home. Patient is independent at home. Transportation: daughters, driving service DME/HHC: Patient states he has walker, shower chair, and grab bars at home. No previous HHC or SNF. Patient wishes to discharge home, denies need for home health at this time. Patient states he has no further needs or concerns at this time. CM to follow for discharge planning needs that may arise. Disposition Plan: Patient to discharge home with family support and follow-up plans in place. Jennifer BROWNE, RN, CM
--- NOTE | 2024-04-16 11:49 | CASEMGMT ---
Pt is requesting the prescriptions to be sent to [facility] instead of [facility] in [place]. TC to [facility] who then faxed the Rx's to [facility]. TC to [facility] and [facility] states that they received the prescriptions and that they are able to apply the [employer] savings card. Pt has a ride set up for 1300 today and denies further needs.
--- NOTE | 2024-04-16 14:48 | PCM.DC.SUM ---
Providers Date of Admission: 04/14/24 Primary Care Physician: Dr. Anthony Luo MD Consultations 04/14/24 13:27 Consult: Cardiology Routine Consulting Provider: Aries Dior Reason for Consult: Abnormal stress echo EMERGENT Consult: No MD Notified: Yes Date Notified: 04/14/24 Time Notified: 13:28 Method of Notification: Verbal Reason For Visit: CHEST PAIN RULE OUT, ELEVATED TROP Diagnosis Discharge Diagnosis (1) S/P coronary artery stent placement: Status: Deleted Code(s): Z95.5 - Presence of coronary angioplasty implant and graft (2) SVT (supraventricular tachycardia): Status: Acute Code(s): I47.10 - Supraventricular tachycardia, unspecified (3) CLL (chronic lymphocytic leukemia): Status: Chronic Code(s): C91.90 - Lymphoid leukemia, unspecified not having achieved remission Medications at Discharge Home Medications aspirin 81 mg tablet,delayed release 81 mg PO BREAKFAST 30 days #30 tabs 04/16/24 atorvastatin 40 mg tablet 40 mg PO QHS 30 days #30 tabs 04/16/24 metoprolol tartrate 25 mg tablet 12.5 mg (1/2 x 25 mg) PO BID 30 days #30 tabs 04/16/24 ticagrelor 90 mg tablet (Brilinta) 90 mg PO BID 30 days #60 tabs 04/16/24 Hospital Course Operations None Procedures Cardiac catheterization and Stress test Summary of Care Provided Minutes Spent on Discharge: 40 Hospital Course: Per HPI: MAURICIO BERNAL, is a 78-year-old male history of CLL presented to [facility] ED 04/13/2024 with intermittent chest pain over the past 2 weeks. Pain will come on suddenly last 5 to 10 minutes and is a tightness in the left side of his chest without anything making it better or worse. Occasionally will also have some palpitations. In the ED patient had troponin of 82 that up trended to 88 with nonspecific EKG, also a D-dimer of 2.65 so CTA obtained which did not show any PE or dissection. CBC with a white blood cell count of 64 consistent with his chronic CLL and otherwise workup negative. Security Risk Analyst contacted who are agreeable to admission and stress test. Hospitalist contacted for admission. Patient reports the intermittent chest pain with some left-sided tightness for 2 weeks with last episode an hour and a half ago lasting 10 minutes, presently having no symptoms. Denies any nausea, vomiting, shortness of breath. ROS otherwise completely negative. Prior to 2 weeks ago this is never happened before. When asked why patient specifically came in today he reports he went to his oncology hematology office and told them of the chest pain and was advised to come to the emergency department Hospital Course: 1. Chest pain?78-year-old male presented to hospital with chest pain over the last 2 weeks. He had a slightly elevated troponin with a peak of 88. He underwent a stress echo which demonstrated signs of ischemia so cardiology proceeded with a cardiac catheterization necessitating stent placement to his mid LAD. He will be on aspirin and Brilinta and was expressed to him the need to remain on this consistently for at least a year. He did have intermittent episodes of nonsustained SVT and he was started on metoprolol 12.5 mg p.o. twice daily which will be continued on discharge. Also continue with Lipitor 40 mg p.o. daily. I recommend outpatient follow-up with cardiology as well as his PCP. Physical Exam Narrative General: Alert, Oriented x3, Cooperative, No apparent distress HEENT: Atraumatic, PERRLA, EOMI, Normocephalic Oral: Moist Mucosa Neck: Supple, No JVD Lungs: Clear to auscultation, Normal air movement, No rhonchi, No wheeze, No rales Cardiovascular: Regular rate, Regular Rhythm, Normal S1, Normal S2, No murmurs Abdomen: Soft, Non Tender, Non-Distended, No Hepato-splenomegaly Extremities: No edema, Capillary Refill Less than 3 Seconds Skin: No rashes, No breakdown Musculoskeletal: No Tenderness to Palpation of Joints or Extremities Neurological: No focal neurological deficits, Motor Exam 5/5 strength throughout, Sensory exam intact to light touch and pain Psych/Mental Status: Normal Affect, Appropriate Weight / BMI Weight Weight: 135 lb 12.876 oz Body Mass Index (BMI) 23.3 ABG / Lab / Microbiology Data 04/16/24 04:55 04/16/24 04:55 Laboratory: Laboratory Results - last 24 hr 04/16/24 04:55: WBC 59.0 H*, RBC 4.26 L, Hgb 13.6, Hct 42.3, MCV 99.3 H, MCH 31.9, MCHC 32.2, RDW Std Deviation 54.4 H, RDW Coeff of Praneeth 15.1 H, Plt Count 231, MPV 10.0, Diff Path Review December foll, Sodium 138, Potassium 3.9, Chloride 108 H, Carbon Dioxide 24.0, Anion Gap 6, BUN 16, Creatinine 0.84, Estim Creat Clear Calc 62.65, Est GFR (MDRD) Af Amer 115, Est GFR (MDRD) Non-Af 95, BUN/Creatinine Ratio 19.2, Glucose 91, Calcium 8.5, Total Bilirubin 1.00, AST 18, ALT 11 L, Alkaline Phosphatase 59, Total Protein 5.8 L, Albumin 3.2, Globulin 2.6, Albumin/Globulin Ratio 1.2 D/C Instructions Discharge Diet: Low fat / Low cholesterol Call your doctor if you observe: Fever of 101 or Higher, Shortness of breath, Dizziness, Fainting spells, Swelling in the ankles, Chest pain and Increased palpitations (irregular heartbeat) Meaningful Use Info Meaningful Use Meaningful Use Diagnoses (Choose all that apply): None applicable Ischemic Stroke Statin Dosing Therapy Reference: STATIN DOSE THERAPY REFERENCE: * Patients > 75 years receive moderate or high dose statin therapy. * Patients 75 years or YOUNGER should receive HIGH intensity statin dose unless contraindicated. You will be required to document reason for non-treatment if statin daily dose does not meet guidelines. HIGH DOSE STATIN THERAPY DAILY Atorvastatin > than or = to 40 mg Rosuvastatin > than or = to 20 mg Amlodipine + Atorvastatin > than or = to 2.5/40 mg Ezetimibe + Simvastatin 10/80 mg Simvastatin 80mg Discharge Plan Admission Admit Date/Time: 04/14/24 18:04 Attending Provider: Andre Hicks Primary Care Provider: Anthony Luo Consulting Providers: Sarah Triana; Aries Dior Discharge Orders/Prescriptions Prescriptions: New atorvastatin 40 mg Tablet 40 mg PO QHS 30 Days Qty: 30 2RF aspirin 81 mg Tablet,Delayed Release (Dr/Ec) 81 mg PO BREAKFAST 30 Days Qty: 30 2RF metoprolol tartrate 25 mg Tablet 12.5 mg PO BID 30 Days Qty: 30 2RF Brilinta 90 mg Tablet 90 mg PO BID 30 Days Qty: 60 2RF Referrals / Follow Up: Anthony Luo MD [Primary Care Provider] - [facility] Doctor,Out of [Non-Staff] - Pascale Cunningham, PA [Med Staff - Adv Practice Prof] - 05/17/24 9:30 am Disposition Disposition (needs filled in before D/C Order can be placed): Home, Self Care Charges/Coding Visit Charges Inpatient E&M: 61072 Disch Hosp >30min
[2024-04-16 15:10] LABS: Pathologist Review Reviewed
[2024-04-16 15:14] LABS: Pathologist Review Reviewed
== END 2024-04-16 14:03 | disposition home or self-care (01) | DRG 321 ==
LOC: ED 18:31 → PCU 19:21
PROVIDERS: Internal Medicine; Internal Medicine Cardiovascular Disease; Admitting Provider Internal Medicine; Emergency Provider Emergency Medicine; PCP Family Medicine; Visit Provider Family Medicine
DX: I25.110 Atherosclerotic heart disease of native coronary artery with unstable angina pectoris (principal); I47.10 Supraventricular tachycardia, unspecified; C91.10 Chronic lymphocytic leukemia of B-cell type not having achieved remission
CPT/HCPCS: 36415; 71045; 71275; 80048; 80053; 80061; 83735; 84443; 84484; 85025; 85027; 85347; 85379; 92928; 93005; 93017; 93350; 93454; 99152; 99153; 99285; C1725; J7030; Q9967; A4216; C1769; C1874; C1887; C1894; C8928; C9600

== ENCOUNTER 2024-06-19 08:05 | Emergency (ER) | payer OTHER, SELFPAY ==
[2024-06-19 08:06] VITALS: BP 164/70; PULSE 65; RESP 16; TEMP 36.8; O2SAT 100
--- NOTE | 2024-06-19 08:11 | EKG12_ITS ---
Test Reason : PALPITATIONS Blood Pressure : */* mmHG Vent. Rate : 59 BPM Atrial Rate : 59 BPM P-R Int : 138 ms QRS Dur : 94 ms QT Int : 414 ms P-R-T Axes : 76 80 30 degrees QTcB Int : 409 ms Sinus bradycardia Otherwise normal ECG Confirmed by CHELSEA VALENTE, LINDA ([id number]), deputy editor in chief JOSE MIGUEL SEALS ([id number]) on 06/21/2024 9:44:26 AM Referred By: Confirmed By: LINDA TRAN MD
--- NOTE | 2024-06-19 08:12 | ED.VIS.CHEST ---
HPI History of Present Illness Chief Complaint: Palpitations [facility] Medical History (Updated 05/18/24 @ 06:27 by Pascale Cunningham PA, PA) Hyperlipidemia SVT (supraventricular tachycardia) CLL (chronic lymphocytic leukemia) Urinary retention Left inguinal hernia Recurrent right inguinal hernia Arthritis Home Medications ?Medication ?Instructions ?Recorded ?Last Taken ?Type aspirin 81 mg tablet,delayed 81 mg PO BREAKFAST #90 tabs 05/12/24 Unknown Rx release atorvastatin 40 mg tablet 40 mg PO QHS #90 tabs 05/12/24 Unknown Rx clopidogrel 75 mg tablet (Plavix) 75 mg PO QDAY #90 tabs 05/12/24 Unknown Rx metoprolol tartrate 25 mg tablet 12.5 mg (1/2 x 25 mg) PO BID #90 05/12/24 Unknown Rx tabs Allergy/AdvReac Type Severity Reaction Status Date / Time No Known Allergies Allergy Verified 06/19/24 08:05 Family History Mother Breast cancer Surgical History (Updated 04/24/24 @ 00:03 by Shola Jack) Status post coronary angioplasty (04/15/24) History of hernia repair (~07/2018) History of nasal surgery Hx of bone graft Hx of right inguinal hernia repair Hx of appendectomy Social History household members: spouse housing: house Smoking Status: Never smoker second hand exposure: No alcohol intake: never substance use type: does not use caffeine: Yes what type of physical activity do you participate in: bicycling frequency: 5-6 times per week seatbelt use: always EXAM Physical Exam Const Vital Signs: 06/19/24 08:06 06/19/24 08:20 06/19/24 08:22 Temperature 98.2 F Temperature Source Oral Pulse Rate 65 Respiratory Rate 16 Respiratory Effort Normal Blood Pressure 164/70 H Blood Pressure Mean 101 Pulse Ox 100 Oxygen Delivery Method Room Air Room Air 06/19/24 10:05 Temperature Temperature Source Pulse Rate Respiratory Rate Respiratory Effort Blood Pressure 133/61 H Blood Pressure Mean 85 Pulse Ox Oxygen Delivery Method MDM MDM MDM Narrative Medical decision making narrative: HISTORY OF PRESENT ILLNESS: 78-year-old male presents with palpitations, history of CAD status post stents on Plavix presents with palpitations. Notes began approximately 3 AM, approximate 5 hours prior to arrival. Notes are intermittent. No alleviating/pain features. No shortness of breath cough or fever recently. No bleeding diathesis. No chest pain. Notes history of abnormal heart rhythm in the past. The patient denies recent surgery in the last 4 weeks or immobilization in the last 3 days, denies previous diagnosis of DVT or PE, hemoptysis, unilateral leg swelling or malignancy with treatment the last 6 months or palliative. No estrogen use noted. REVIEW OF SYSTEMS: Pertinent positives: Palpitations Pertinent negatives: Chest pain, syncope, bleeding diathesis PHYSICAL EXAM: Nursing triage notes reviewed, Vital signs reviewed Constitutional: please see mdm HENT: MMM Eyes: Pupils equal round and reactive to light, Extraocular muscles intact Neck: No stridor, no JVD, full neck ROM Lungs: Clear to auscultation, No wheezing or rales. No increased work of breathing, no conversational dyspnea, no accessory muscle use, no nasal flaring. No respiratory distress noted Heart: Regular rate and rhythm, No murmurs, No rubs and No gallops, 2+ distal pulses (radial, femoral, posterior tibial) in all extremities Abdomen: Soft, there is no tenderness, rigidity, rebound or guarding, no obvious peritoneal signs, no palpable pulsatile abdominal masses, no auscultated abdominal bruit : No CVAT Extremities: No edema Neuro: No focal neurological deficits, cranial nerves II through XII intact, 5/5 strength in all extremities. Intact sensation to light touch in all extremities, 2+ reflexes bilateral patella tendons. Normal gait. No ataxia. Skin: No rash or lesions noted MEDICAL DECISION MAKING: Chief Complaint: Palpitations External records reviewed: Reviewed prior cardiology visits Factors affecting care: Hyperlipidemia, CAD, CLL Social determinants of health: none History obtained from others: none Consults: none [facility] Narrative: The patient was initially hemodynamically stable, afebrile and nontoxic-appearing. Exam without focal cardiopulmonary normalities. Regular rate and rhythm. I considered the following differential diagnosis: Arrhythmia, electrolyte disturbance, dehydration, anemia, ACS, thyroid dysfunction ALL IMAGES (IF OBTAINED) HAVE BEEN PERSONALLY REVIEWED AND INTERPRETED BY MYSELF. EKG with sinus bradycardia rate of 59, normal axis, normal intervals, no STEMI, no signs of ARVD, Brugada syndrome or WPW noted CBC with leukocytosis consistent with CLL, no anemia thrombocytopenia BMP without evidence of significant electrolyte abnormalities, no anion gap, no acute kidney injury. Magnesium within normal limits High-sensitivity troponin is negative, no evidence of myocardial ischemia x2 I have personally reviewed the patient's chest x-ray. Chest x-ray is unremarkable for pulmonary edema, pneumothorax, pneumonia or focal cardiopulmonary abnormality. The synthesis of the patient's history, physical exam, labs and images suggest no acute life from radiology. No indication for admission at this time patient will benefit likely from outpatient monitoring with a Holter monitor. Gave strict return precautions. The patient and/or family, caregivers express understanding. The patient and/or family, caregivers agrees with the plan. Shared decision making: I will have a discussion with the patient and or visitors regarding risk/benefits of further testing or admission. They will be made aware of of the risk/benefits inherent in this decision they will be given the opportunity to voice understanding. Total critical care time today provided was at least 0 minutes. This excludes separately billable procedures. Critical care time (if documented) is secondary to the patient having high probability of clinically significant/life threatening deterioration in the patient's condition which required my urgent intervention. Impression: 1. Palpitations 2. History of CLL 3. Leukocytosis Dispo: Discharge home This note was generated with [employer] dictation software. It may contain incorrect words, spelling, and punctuation that were not noted in review of the chart prior to signing. Lab Data Labs: Laboratory Results - last 24 hr 06/19/24 06/19/24 08:16 10:35 WBC 59.8 H* RBC 4.13 L Hgb 13.3 Hct 41.2 MCV 99.8 H MCH 32.2 H MCHC 32.3 RDW Std Deviation 54.2 H RDW Coeff of Praneeth 14.8 H Plt Count 217 MPV 9.3 Immature Gran % (Auto) 0.200 Neut % (Auto) 9.5 L Lymph % (Auto) 87.1 H Greene % (Auto) 2.8 Eos % (Auto) 0.3 Baso % (Auto) 0.1 Absolute Neuts (auto) 5.7 Absolute Lymphs (auto) 52.04 H Nucleated RBC % 0 Diff Path Review May foll Atypical Lymphocytes 1+ Reactive Lymphocytes 3+ Sodium 141 Potassium 4.3 Chloride 112 H Carbon Dioxide 24.0 Anion Gap 5 BUN 27 H Creatinine 1.01 Estim Creat Clear Calc 52.10 Est GFR (MDRD) Af Amer 92 Est GFR (MDRD) Non-Af 76 BUN/Creatinine Ratio 26.7 H Glucose 105 Calcium 8.9 Magnesium 2.4 Troponin I High Sens 6 6 Radiography Diagnostic Testing: Clinical Impression(s) from Imaging Studies Chest X-Ray 06/19/24 08:25 IMPRESSION: No radiographic evidence of acute cardiopulmonary disease and unchanged. Electronically Signed: Clement Dumont MD at 11:00 EDT , Discharge Plan Triage Chief Complaint: Palpitations ED Provider: Branden Fall Dx/Rx/DC Orders Prescriptions: No Action aspirin 81 mg tablet,delayed release (DR/EC) 81 mg PO BREAKFAST Qty: 90 3RF atorvastatin 40 mg tablet 40 mg PO QHS Qty: 90 3RF metoprolol tartrate 25 mg tablet 12.5 mg PO BID Qty: 90 3RF clopidogrel [Plavix] 75 mg tablet 75 mg PO QDAY Qty: 90 3RF Rx Instructions: take 4 pills day one, then it is once a day Primary Care Provider: Anthony Luo Referrals: Anthony Luo MD [Primary Care Provider] - Print Language: French
[2024-06-19 08:20] VITALS: BMI 24.5
--- NOTE | 2024-06-19 08:25 | RAD_ITS ---
EXAM: XR CHEST, 1 VIEW CLINICAL INDICATION: chest pain TECHNIQUE: Frontal view of the chest. COMPARISON: 04/13/2024. FINDINGS: LUNGS AND PLEURAL SPACES: Unremarkable. No consolidation or edema. No pneumothorax. No effusion. HEART: Unremarkable. Cardiac silhouette not enlarged. MEDIASTINUM: Central airways and mediastinal contour are unremarkable. BONES/JOINTS: Unremarkable. No acute fracture. SOFT TISSUES: Unremarkable. RAD/Chest 1 View (Portable) IMPRESSION: No radiographic evidence of acute cardiopulmonary disease and unchanged. Electronically Signed: Clement Dumont MD at 11:00 EDT ,
[2024-06-19 08:27] LABS: Absolute Lymphocyte Count 52.04 X10^3/uL (0.83-4.51); Absolute Neutrophil Count 5.7 X10^3/uL (2.0-7.7); Basophil# 0.07 X10^3/uL; Basophil% 0.1 % (0-1); Eosinophil# 0.15 X10^3/uL; Eosinophils% 0.3 % (0-5); Hematocrit 41.2 % (40-54); Hemoglobin 13.3 g/dL (13.0-16.5); Lymphocyte # 52.04 X10^3/ul (0.83-4.51); Lymphocyte % 87.1 % (19-41); Mean Corp Hgb Conc 32.3 g/dL (32-36); Mean Corpuscular Hgb 32.2 pg (27.0-32.0); Mean Corpuscular Volume 99.8 fL (80-94); Mean Platelet Vol. 9.3 fl (6.2-12.0); Monocyte% 2.8 % (0-10); NRBC Flagged by Analyzer 0 % (0-5); Neutrophil # 5.67 X10^3/uL (2.7-7.7); Neutrophil % 9.5 % (47-70); POSITIVE COUNT YES; POSITIVE DIFFERENTIAL YES; POSITIVE MORPHOLOGY YES; Platelet Count 217 K/mm3 (150-450); RBC Distribution Width CV 14.8 % (11.6-14.6); RBC Distribution Width SD 54.2 fl (35.1-43.9); Red Blood Count 4.13 M/mm3 (4.6-6.2); White Blood Count 59.8 K/mm3 (4.4-11.0)
[2024-06-19 08:46] LABS: Anion Gap 5 (5-15); BUN 27 mg/dL (7-18); BUN/Creat Ratio 26.7 RATIO (10-20); Calcium,Total 8.9 mg/dL (8.5-10.1); Chloride 112 mmol/L (98-107); Creatinine, Serum 1.01 mg/dL (0.70-1.30); EST Glomerular Filtration Rate 76 mL/min (>60); Est Glom Filt Rate - Afr Amer 92 mL/min (>60); Glucose 105 mg/dL (74-106); Magnesium 2.4 mg/dL (1.6-2.6); Potassium 4.3 mmol/L (3.5-5.1); Sodium Level 141 mmol/L (136-145); Troponin-I HS (w/2H Reflex) 6 pg/mL (3.0-78.0)
[2024-06-19 08:57] LABS: Differential Indicated SCAN CRITERIA MET
[2024-06-19 08:58] LABS: Atypical Lymphocyte 1+ %; Reactive Lymphocyte 3+
[2024-06-19 10:05] VITALS: BP 133/61
[2024-06-19 10:24] LABS: Reflex Troponin-HS? (from REC) Y
[2024-06-19 11:01] LABS: Troponin-I HS 6 pg/mL (3.0-78.0)
[2024-06-21 14:23] LABS: Pathologist Review Reviewed
== END 2024-06-19 11:25 | disposition home or self-care (01) ==
PROVIDERS: Emergency Provider Emergency Medicine; PCP Family Medicine; Visit Provider Emergency Medicine
DX: R00.2 Palpitations (principal); E78.5 Hyperlipidemia, unspecified; I25.10 Atherosclerotic heart disease of native coronary artery without angina pectoris; Z79.82 Long term (current) use of aspirin; Z79.899 Other long term (current) drug therapy; Z79.02 Long term (current) use of antithrombotics/antiplatelets
CPT/HCPCS: 71045; 80048; 83735; 84484; 85025; 93005; 99283; A4216

== ENCOUNTER 2024-10-07 09:09 | Emergency (ER) | payer OTHER, SELFPAY ==
[2024-10-07 09:11] VITALS: BP 121/69; PULSE 81; RESP 14; TEMP 36.8; O2SAT 98; BMI 23.8
--- NOTE | 2024-10-07 09:19 | EKG12_ITS ---
Test Reason : CP Blood Pressure : */* mmHG Vent. Rate : 74 BPM Atrial Rate : 74 BPM P-R Int : 130 ms QRS Dur : 78 ms QT Int : 392 ms P-R-T Axes : 64 58 43 degrees QTcB Int : 435 ms Normal sinus rhythm Nonspecific ST and T wave abnormality Abnormal ECG Confirmed by BARBER MARCELINO ([id number]), news assignment editor JOSE MIGUEL SEALS ([id number]) on 10/11/2024 7:09:45 AM Referred By: Confirmed By: BARBER MARCELINO
--- NOTE | 2024-10-07 09:20 | ED.VIS.CHEST ---
HPI History of Present Illness Chief Complaint: Chest Pain Detail of Chief Complaint: Midsternal chest pain Informant: patient Onset/Context/Timing Onset: Yesterday Activity at onset: sudden Timing: Intermittent (10 hours) Quality: Positive for Pain Location: Substernal Current Severity: Gone Maximum Severity: Moderate Worsened By: Nothing Relieved By: Nothing Associated Symptoms: Negative for Nausea, Vomiting, Diaphoresis, Dyspnea, Cough, Fever, Lightheadedness, Acid Reflux or Palpitations Narrative Narrative: Patient is a 78-year-old male with history of CLL, coronary artery disease with placement of multiple stents March 2024 at that time he had a slight elevation of troponin to 88. He underwent stress echo which demonstrated signs of cardiac ischemia. He underwent cardiac catheterization with stent placement to his mid LAD. He is presently on aspirin, metoprolol and Plavix. He took his medications this morning prior to arrival. He states the pain resolved approximately 1 hour prior to presentation. He states that stopped 1 hour after he took his Plavix dose. He denies history peptic ulcer disease, hiatal hernia or reflux. He denies black or maroon-colored stool. Patient was moving furniture when he had the onset his pain. There is no associated symptoms and he had no radiation. Prior Similar Symptoms: Yes and With Prior Angina Recent Illness/Hospitalization: No CVD Risk Factors: Negative for Hypertension, Diabetes, Hypercholesterolemia, Family History 1' </=55 or Smoking PE Risk Factors: Negative for Recent Travel/Surgery, Recent Immobilization, Prior DVT or PE, Cancer or OCP + Smoking + >/=35 TAD Risk Factors: Negative for Marfan's Syndrome, Hypertension or Family History [facility] Medical History Hyperlipidemia SVT (supraventricular tachycardia) CLL (chronic lymphocytic leukemia) Urinary retention Left inguinal hernia Recurrent right inguinal hernia Arthritis Home Medications ?Medication ?Instructions ?Recorded ?Last Taken ?Type aspirin 81 mg tablet,delayed 81 mg PO BREAKFAST #90 tabs 05/12/24 Unknown Rx release atorvastatin 40 mg tablet 40 mg PO QHS #90 tabs 05/12/24 Unknown Rx clopidogrel 75 mg tablet (Plavix) 75 mg PO QDAY #90 tabs 05/12/24 Unknown Rx metoprolol tartrate 25 mg tablet 12.5 mg (1/2 x 25 mg) PO BID #90 05/12/24 Unknown Rx tabs Allergy/AdvReac Type Severity Reaction Status Date / Time No Known Allergies Allergy Verified 10/07/24 09:10 Family History Mother Breast cancer Surgical History Status post coronary angioplasty (04/15/24) History of hernia repair (~07/2018) History of nasal surgery Hx of bone graft Hx of right inguinal hernia repair Hx of appendectomy Social History household members: spouse housing: house Smoking Status: Never smoker second hand exposure: No alcohol intake: never substance use type: does not use caffeine: Yes what type of physical activity do you participate in: bicycling frequency: 5-6 times per week seatbelt use: always ROS ROS ED Constitutional Constitutional ED: Denies chills or fever(s) Eyes Eyes: Reports none ENT ENT ED: Denies rhinorrhea or sore throat Cardiovascular Cardiovascular: Reports as per HPI; Denies orthopnea or paroxysmal nocturnal dyspnea Respiratory/Chest Respiratory/Chest: Denies cough, dyspnea, dyspnea on exertion, orthopnea or paroxysmal nocturnal dyspnea Gastrointestinal Gastrointestinal: Denies abdominal pain, nausea or vomiting Musculoskeletal Musculoskeletal: Denies arthralgias, back pain, myalgias or neck pain Integumentary Denies rash Endocrine Endocrinology: Denies cold intolerance or heat intolerance EXAM Physical Exam Const Vital Signs: 10/07/24 09:11 Temperature 98.2 F Temperature Source Temporal Pulse Rate 81 Respiratory Rate 14 Blood Pressure 121/69 H Blood Pressure Mean 86 Pulse Ox 98 Oxygen Delivery Method Room Air Positive well nourished and well developed General Appearance ED: well developed, NAD and pallor HEENT Reports moist mucous membranes normocephalic and atraumatic Eyes PERRL and EOMs intact bilaterally General Eye ED: Negative for pale conjunctiva or scleral icterus Neck no lymphadenopathy, supple and no JVD Resp normal respiratory effort and clear to auscultation bilaterally Cardio regular rate, regular rhythm, S1 normal heart sound, S2 normal heart sound and no murmurs GI normal to inspection, nondistended, normoactive bowel sounds, soft to palpation, non-tender, non-distended and no masses; Negative for hepatosplenomegaly Back/Spine no CVA tenderness Extremity normal to inspection Extremity Narrative: Pitting edema approximately 2 to 3 mm General Extremety ED: Yes edema General Extremity: edema Neuro oriented x3, CN's II-XII intact bilaterally, no sensory deficits noted and gait normal Sensorium / Orientation: awake and alert Psych mental status grossly normal Skin no rashes or lesions noted and no wounds General Skin Exam: pallor; Negative for jaundice MDM MDM MDM Narrative Medical decision making narrative: Differential diagnosis is cardiac versus noncardiac. Cardiac would be ischemia since this is similar to the pain he had prior to placement of stents in his LAD. Noncardiac would include esophageal, peptic ulcer disease, biliary disease, pulmonary disease. Workup included an EKG and appropriate blood work. Since patient had recent x-ray has a respirate of 14 with a pulse ox 98% and no abnormal oscillatory findings chest x-ray was not obtained. History & Record Review Additional record(s) reviewed:: Prior inpatient record (Inpatient records were reviewed from March 2024. Discharge summary authored by Dr. Hicks was read and reviewed.) Lab Data Attestation: I reviewed the patient's lab results. Lab results narrative: CBC is remarkable for elevated white count with lymphocytosis. This is consistent with patient's history of CLL. Basic metabolic panel reveals elevated BUN and creatinine of 40 and 1.8. This is abnormal compared to prior. Troponin is normal 18. 2-hour was not obtained since he had pain for greater than 10 hours that started 12 hours ago. On June 19 BUN/creatinine were 27 and 1.01 with an estimated GFR 76. April 16, 2024 BUN and creatinine were 16 and 0.84 with an estimated GFR of 95. Labs: Laboratory Results - last 24 hr 10/07/24 09:25 WBC 75.5 H* RBC 4.34 L Hgb 13.8 Hct 43.2 MCV 99.5 H MCH 31.8 MCHC 31.9 L RDW Std Deviation 53.9 H RDW Coeff of Praneeth 14.8 H Plt Count 257 MPV 9.7 Immature Gran % (Auto) 0.400 Neut % (Auto) 11.2 L Lymph % (Auto) 87.5 H [place] % (Auto) 0.8 Eos % (Auto) 0.0 Baso % (Auto) 0.1 Absolute Neuts (auto) 8.6 H Absolute Lymphs (auto) 66.04 H Nucleated RBC % 0 Sodium 139 Potassium 4.5 Chloride 107 Carbon Dioxide 26.0 Anion Gap 6 BUN 40 H Creatinine 1.80 H Estim Creat Clear Calc 29.23 Est GFR (MDRD) Af Amer 47 L Est GFR (MDRD) Non-Af 39 L BUN/Creatinine Ratio 22.2 H Glucose 115 H Calcium 8.8 Troponin I High Sens 18 EKG Initial EKG: Attestation: I personally reviewed and interpreted this EKG as follows: Interpretation: Sinus Rhythm (Normal sinus rhythm rate of 74. PA interval is 130 ms. QRS duration 78 ms. QT interval 392 ms right axis is normal. There is artifact that the computer is reading is nonseptic T wave changes. In my opinion this is a normal EKG.) Discharge Plan Triage Chief Complaint: Chest Pain ED Provider: Herbert Quintero Dx/Rx/DC Orders Clinical Impression: Central chest pain, CLL (chronic lymphocytic leukemia), CAD (coronary artery disease), Hyperlipidemia, Acute kidney insufficiency Instructions: ED Chest Pain, Noncardiac, ED Renal Insufficiency Prescriptions: No Action aspirin 81 mg tablet,delayed release (DR/EC) 81 mg PO BREAKFAST Qty: 90 3RF atorvastatin 40 mg tablet 40 mg PO QHS Qty: 90 3RF metoprolol tartrate 25 mg tablet 12.5 mg PO BID Qty: 90 3RF clopidogrel [Plavix] 75 mg tablet 75 mg PO QDAY Qty: 90 3RF Rx Instructions: take 4 pills day one, then it is once a day Primary Care Provider: Anthony Luo Referrals: Anthony Luo MD [Primary Care Provider] - 3-5 Days (Creatinine is elevated 1.8 with an estimated GFR 36. This is a significant decline since March 2024.) Activity Restrictions/Additional Instructions: 1. Increase your fluid intake 2. Contact your doctor for repeat basic metabolic panel to assess your renal function. If this remains elevated you will need potentially referral to nephrology (kidney specialist) Print Language: Tamazight Disposition Disposition: Home, Self Care
[2024-10-07 09:42] LABS: Absolute Lymphocyte Count 66.04 X10^3/uL (0.83-4.51); Absolute Neutrophil Count 8.6 X10^3/uL (2.0-7.7); Basophil# 0.04 X10^3/uL; Basophil% 0.1 % (0-1); Eosinophil# 0.02 X10^3/uL; Hematocrit 43.2 % (40-54); Hemoglobin 13.8 g/dL (13.0-16.5); Lymphocyte # 66.04 X10^3/ul (0.83-4.51); Lymphocyte % 87.5 % (19-41); Mean Corp Hgb Conc 31.9 g/dL (32-36); Mean Corpuscular Hgb 31.8 pg (27.0-32.0); Mean Corpuscular Volume 99.5 fL (80-94); Mean Platelet Vol. 9.7 fl (6.2-12.0); Monocyte# 0.58 X10^3/uL; Monocyte% 0.8 % (0-10); NRBC Flagged by Analyzer 0 % (0-5); Neutrophil # 8.55 X10^3/uL (2.7-7.7); Neutrophil % 11.2 % (47-70); POSITIVE COUNT YES; POSITIVE DIFFERENTIAL YES; POSITIVE MORPHOLOGY YES; Platelet Count 257 K/mm3 (150-450); RBC Distribution Width CV 14.8 % (11.6-14.6); RBC Distribution Width SD 53.9 fl (35.1-43.9); Red Blood Count 4.34 M/mm3 (4.6-6.2)
[2024-10-07 09:50] LABS: Differential Indicated SCAN CRITERIA MET; White Blood Count 75.5 K/mm3 (4.4-11.0)
[2024-10-07 10:06] LABS: Anion Gap 6 (5-15); BUN 40 mg/dL (7-18); BUN/Creat Ratio 22.2 RATIO (10-20); Calcium,Total 8.8 mg/dL (8.5-10.1); Chloride 107 mmol/L (98-107); EST Glomerular Filtration Rate 39 mL/min (>60); Est Glom Filt Rate - Afr Amer 47 mL/min (>60); Estimated Creatinine Clearance 29.23 ml/min; Glucose 115 mg/dL (74-106); Potassium 4.5 mmol/L (3.5-5.1); Sodium Level 139 mmol/L (136-145); Troponin-I HS 18 pg/mL (3.0-78.0)
[2024-10-07 10:26] LABS: Reactive Lymphocyte 1+; Smudge Cells 1+
[2024-10-07 10:30] VITALS: BP 132/69; PULSE 77; RESP 14; TEMP 36.8; O2SAT 97
[2024-10-08 13:43] LABS: Pathologist Review Reviewed
== END 2024-10-07 10:34 | disposition home or self-care (01) ==
PROVIDERS: Emergency Provider Emergency Medicine; PCP Family Medicine; Visit Provider Emergency Medicine
DX: C91.10 Chronic lymphocytic leukemia of B-cell type not having achieved remission (principal); E78.5 Hyperlipidemia, unspecified; R07.89 Other chest pain; N28.9 Disorder of kidney and ureter, unspecified; I25.10 Atherosclerotic heart disease of native coronary artery without angina pectoris; Z95.5 Presence of coronary angioplasty implant and graft
CPT/HCPCS: 80048; 84484; 85025; 93005; 99284

== ENCOUNTER → 2025-03-08 | Outpatient (CLI) | payer OTHER, SELFPAY ==
[2025-03-08 10:02] LABS: AST(SGOT) 23 U/L (<=37); Alanine Aminotransfer ALT/SGPT 22 U/L (<=46); Albumin, Serum 3.9 g/dL (3.4-4.8); Alkaline Phosphatase 71 U/L (40-129); Bilirubin, Direct 0.36 mg/dL (0.00-0.30); Cholesterol 108 mg/dL (<=200); Globulin 2.2 g/dL (2.2-4.2); Low Density Lipoprotein Calc. 54 mg/dL; Triglycerides 63 mg/dL; Very Low Density Lipoprotein 13 mg/dL (5-40); cholesterol:hdl ratio screen 2.58
== END | disposition home or self-care (01) ==
PROVIDERS: PCP Family Medicine; Referring Provider Student in an Organized Health Care Education/Training Program; Visit Provider Student in an Organized Health Care Education/Training Program
DX: I25.10 Atherosclerotic heart disease of native coronary artery without angina pectoris (principal); E78.5 Hyperlipidemia, unspecified
CPT/HCPCS: 36415; 80061; 80076

== ENCOUNTER → 2025-06-09 | Outpatient (CLI) | payer OTHER, SELFPAY ==
[2025-06-09 09:30] LABS: AST(SGOT) 18 U/L (<=37); Alanine Aminotransfer ALT/SGPT 12 U/L (<=46); Albumin, Serum 4.0 g/dL (3.4-4.8); Alkaline Phosphatase 63 U/L (40-129); Anion Gap 7 (5-15); BUN 19 mg/dL (4-19); BUN/Creat Ratio 18.8 RATIO (10-20); Calcium,Total 9.0 mg/dL (7.6-11.0); Carbon Dioxide 28.4 mmol/L (21.0-32.0); Chloride 105 mmol/L (98-108); Cholesterol 178 mg/dL (<=200); Globulin 2.4 g/dL (2.2-4.2); Glucose 96 mg/dL (70-99); Low Density Lipoprotein Calc. 123 mg/dL; Potassium 4.8 mmol/L (3.3-5.1); Triglycerides 60 mg/dL; Very Low Density Lipoprotein 12 mg/dL (5-40); cholesterol:hdl ratio screen 4.05
== END | disposition home or self-care (01) ==
PROVIDERS: PCP Family Medicine; Referring Provider Internal Medicine Cardiovascular Disease; Visit Provider Internal Medicine Cardiovascular Disease
DX: E78.49 Other hyperlipidemia (principal); I10 Essential (primary) hypertension; I25.10 Atherosclerotic heart disease of native coronary artery without angina pectoris
CPT/HCPCS: 36415; 80053; 80061

== ENCOUNTER → 2025-07-15 | Outpatient (CLI) | payer SELFPAY, OTHER ==
--- OUTSIDE RECORDS SUMMARY | 2025-07-15 06:51 | XMS RPT_ITS | CCD ---
Author Organization [facility] CliniSynm Care Team Providers Care Caretaker Resort Name Role Phone Anthony Cisneros MD Primary Care Provider Zulema Cisneros MD Primary Care Provider [phone] Zulema CISNEROS MD Unavailable [phone] HEMATOLOGY, GENERAL Unavailable Unavailable Delmis RN, Linnette Unavailable Unavailable ALEXANDER DEAN, FAY Unavailable Unavailable SMOOTH RAMIREZ Unavailable Unavailable JODEE HAYWARD Unavailable Unavailable Unavailable Zulema Cisneros MD Primary Care Provider JODEE HAYWARD Unavailable Unav ailable TOSHIA BOOKER Referring Unavailable TOSHIA BOOKER Attending Unavailable Zulema CISNEROS Primary Care Unavailable TOSHIA BOOKER Referring Unavailable Zulema CISNEROS Primary Care Unavailable TOSHIA BOOKER Attending Unavailable Zulema CISNEROS Primary Care Unavailable TOSHIA BOOKER Referring Unavailable Zulema CISNEROS Primary Care Unavailable Dr. Anthony Cisneros MD Primary Care Provider [phone] Dr. Anthony Cisneros MD Referring Provider Caleb Schaeffer Attending Provider Caleb Schaeffer Referring Provider [phone] Dr. Anthony Cisneros MD Primary Care Physician Caleb Schaeffer Attending Physician Dr. Humza Mcgarry MD Attending Physician Dr. Humza Mcgarry MD Referring Provider Humza Mcgarry Attending Unavailable Humza Mcgarry Referring Unavailable Anthony Cisneros Primary Care Unavailable Humza Mcgarry Attending Unavailable Anthony Cisneros Primary Care Unavailable Valerio, Anthony Referring Unavailable Valerio, Anthony Primary Care Unavailable Valerio, Anthony Referring Unavailable Humza Mcgarry Attending Unavailable Valerio, Anthony Primary Care Unavailable Valerio, Anthony Referring Unavailable Humza Mcgarry Attending Unavailable Valerio, Anthony Primary Care Unavailable Caleb Gutierrez Attending Unavailable Valerio, Anthony Referring Unavailable Pascale Reddy Attending Unavail able Valerio, Anthony Referring Unavailable Griceldanhdonn, Anthony Primary Care Unavailable Herbert Quintero Attending Unavailable Valerio, Anthony Primary Care Unavailable Valerio, Anthony Primary Care Unavailable Caleb Gutierrez Attending Unavailable Caleb Gutierrez Referring Unavailable Medications Current Medications Medication Drug Class(es) Dates Sig (Normalized) Sig (Original) amLODIPine 5 mg oral tablet (2 sources) Dihydropyridine Calcium Channel Yan Start: 05-31-2025 take 1 tablet by mouth once daily Amlodipine 5 mg tablet Active 5 mg PO daily 90 3 May 31, 2025 4:47pm Complies with drug therapy Start: 05-31-2025 End: 05-31-2025 take 1 tablet by mouth once daily Amlodipine 5 mg tablet Discontinued 5 mg PO daily May 31, 2025 12:00am May 31, 2025 4:48pm aspirin 81 mg delayed release oral tablet (19 sources) Platelet Aggregation Inhibitor, Nonsteroidal Anti-inflammatory Drug Start: 05-31-2025 take 1 tablet by mouth at breakfast Aspirin 81 mg tablet,delayed release (DR/EC) Active 81 mg PO WITH BREAKFAST 90 May 31, 2025 4:47pm Complies with drug therapy Start: 04-16-2024 End: 05-31-2025 take 1 tablet by mouth at breakfast Aspirin 81 mg tablet,delayed release (DR/EC) Discontinued 81 mg PO WITH BREAKFAST 90 May 12, 2024 4:53pm May 31, 2025 4:48pm aspirin 81 mg ca psule ; 1 daily (81 mg) Comments: per cardio Comment on above: per cardio clopidogrel 75 mg oral tablet (16 sources) P2Y12 Platelet Inhibitor Start: 05-31-2025 take 1 tablet by mouth once daily Clopidogrel (Plavix) 75 mg tablet Active 75 mg PO daily 90 3 October 14th, 2025 4:47pm Complies with drug therapy Start: 08-02-2024 take 1 tablet by moses th once daily clopidogrel (PLAVIX) 75 mg tablet Take 75 mg by mouth once daily. 08/02/2024 Active Start: 05-12-2024 End: 05-31-2025 Clopidogrel (Plavix) 75 mg t ablet Discontinued 75 mg PO daily 90 May 12, 2024 12:00am May 31, 2025 4:48pm take 4 pills day one, then it is once a day Comment on above: cardio MEDICATION, NON-DATABASE (7 sources) MEDICATION, NON- DATABASE For life transfer factor Active MEDICATION, NON- DATABASE For life transfer factor 0 Active Comment on above: For life transfer f actor metoprolol tartrate 25 mg oral tablet (20 sources) beta-Adrenergic Yan Start: 05-31-2025 take 1 tablet by mouth twice daily Metoprolol Tartrate 25 mg tablet Active 25 mg PO TWICE A DAY 180 May 31, 2025 4:48pm Complies with drug therapy Start: 05-31-2025 End: 05-31-2025 take 1 tablet by mouth twice daily Metoprolol Tartrate 25 mg tablet Discontinued 25 mg PO TWICE A DAY May 31, 2025 12:00am May 31, 2025 4:48pm Start: 08-02-2024 take 0.5 tablet by m outh every twelve hours metoprolol tartrate, short acting, (LOPRESSOR) 25 mg tablet Take 0.5 tablets by mouth every 12 hours. 08/02/2024 Active Start: 04-16-2024 End: 05-31-2025 Metoprolol Tartrate 25 mg ta blet Discontinued 12.5 mg PO TWICE A DAY 90 May 12, 2024 4:53pm May 31, 2025 3:41pm metoprolol tartr ate 25 mg tablet ; 1/2 two times daily (25 mg) Comments: cardio Comment on above: cardio rosuvastatin calcium 20 mg oral tablet (1 source) HMG-CoA Reductase Inhibitor Start: 06-09-2025 take 1 tablet by mouth once daily Start: 06-09-2025 take 1 tablet by mouth once da ernst Completed/Discontinued Medications Medication Drug Class(es) Dates Sig (Normalized) Sig (Original) acetaminophen 325 mg / oxyCODONE hydrochloride 5 mg oral tablet (3 sources) Opioid Agonist Start: 07-27-2018 End: 07-30-2018 Oxycodone-Acetaminop hen 1 TABLET tablet Discontinued 1 {tbl} PO EVERY 6 HOURS NEEDED as needed for Pain 8 3 0 July 27, 2018 1:00am July 29, 2018 1:00am July 30, 2018 1:12am Postoperative pain Other acute postprocedural pain atorvastatin 40 mg oral tablet (20 sources) HMG-CoA Reductase Inhibitor Start: 04-16-2024 End: 06-09-2025 take 1 tablet by mouth at bedtime Atorvastatin 40 mg tablet Discontinued 40 mg PO AT BEDTIME 90 3 May 12, 2024 4:53pm February 22, 2025 8:06am Comment on above: cardio penicillin v potassium 500 mg oral tablet (20 sources) Start: 08-02-2019 End: 08-09-2019 take 1 tablet by mouth four times daily Penicillin V Potassium 500 MG Oral Tablet ; 1 (one) Tablet four times daily for 7 days Quantity: 28 {Tablet} Refills: 0 Ordered: 20-Aug-2019 PASCUAL CHENG Start: 02-Aug-2019 End: 09-Aug-2019 Status: Inactive tamsulosin hydrochloride 0.4 mg oral capsule (3 sources) alpha-Adrenergic Yan Start: 07-13-2018 End: 07-22-2018 take 1 capsule by mouth once daily Tamsulosin (Flomax) 0.4 mg capsule Discontinued 0.4 mg PO DAILY 30 0 July 13, 2018 1:00am July 22, 2018 5:35pm ticagrelor 90 mg oral tablet (3 sources) Start: 04-16-2024 End: 05-12-2024 take 1 tablet by mouth twice daily Ticagrelor (Brilinta) 90 mg Tablet Discontinued 90 mg PO TWICE A DAY 60 30 2 April 16, 2024 12:00am May 12, 2024 4:54pm Problems Active Problems Problem Classification Problem Date Documented Date Episodic/Chronic Abdominal hernia (6 sources) Recurrent right inguinal hernia; Translations: [Unilateral inguinal hernia, without obstruction or gangrene, recurrent] 07-13-2018 Episodic Administrative/social admission (20 sources) Patient encounter status; Translations: [Counseling, unspecified] 08-21-2021 Episodic Cardiac dysrhythmias (6 sources) Supraventricular tachycardia; Translations: [Supraventricular tachycardia] 04-16-2024 Chronic Coronary atherosclerosis and other heart disease (16 sources) Coronary arteriosclerosis; Translations: [Atherosclerotic heart disease of [place] coronary artery without angina pectoris] Onset: 05-31-2025 04-16-2024 Chronic Comment on above: 70% Prox Mid, 80% Mi d LAD, 60% Prox LCX with PCI to RCA 70% Prox Mid, 80% Mi d LAD, 60% Prox LCX; PCI to RCA Coronary atherosclerosis and other heart disease (7 sources) Past history of procedure; Translations: [Coronary angioplasty status] Onset: 04-15-2024 04-16-2024 Episodic Comment on above: 3.0 mm balloon post- dilated using 3.25 mm balloon, optimized proximally using 3.5 mmballoon RCA 04/15/24 Diseases of white blood cells (3 sources) Lymphocytosis; Translations: [Lymphocytosis (symptomatic)] 07-30-2018 Chronic Disorders of lipid metabolism (10 sources) Hyperlipidemia; Translations: [Hyperlipidemia, unspecified] Onset: 05-31-2025 05-18-2024 Chronic Disorders of teeth and jaw (20 sources) Dental abscess; Translations: [Periapical abscess without sinus] 08-02-2019 Episodic Essential hypertension (3 sources) Hypertensive disorder; Translations: [Essential (primary) hypertension] Onset: 05-31-2025 05-31-2025 Chronic Genitourinary symptoms and ill-defined conditions (3 sources) Retention of urine; Translations: [Retention of urine, unspecified] 07-13-2018 Episodic Leukemias (20 sources) Chronic lymphoid leukemia, disease; Translations: [Chronic lymphocytic leukemia of B-cell type not having achieved remission] Onset: 08-15-2020 Chronic Osteoarthritis (3 sources) Arthritis; Translations: [Unspecified osteoarthritis, unspecified site] 07-13-2018 Chronic Other diseases of kidney and ureters (3 sources) Acute renal insufficiency; Translations: [Disorder of kidney and ureter, unspecified] 10-15-2024 Episodic Other screening for suspected conditions (not mental disorders or infectious disease) (20 sources) Screening status; Translations: [Encounter for screening for malignant neoplasm of prostate] 08-02-2019 Episodic Other skin disorders (1 source) Skin lesion; Translations: [Disorder of the skin and subcutaneous tissue, unspecified] 03-27-2023 Episodic Residual codes; unclassified (20 sources) Overweight; Translations: [Other specified conditions influencing health status] 08-02-2019 Episodic Residual codes; unclassified (3 sources) H/O: bone tissue recipient; Translations: [Other specified postprocedural states] 07-13-2018 Episodic Comment on above: Right leg- 2007 Unclassified (20 sources) Hyperlipidemia - Note for Hyperlipidemia: Pt would like some labs done today. He had cholesterol checked a few years ago and he said it was slightly elevated, but not enough to change anything. He was to the eye doctor last week and they suggested he have it checked again. 08-21-2021 Unclassified (20 sources) Physical examination - The patient is here for a annual physical. Note for Physical examination: Here to discuss recent labwork. Has h/o CLL, sees Dr. Gaming in [place]. Would like referral for a 2nd opinion. 08-02-2019 Unclassified (20 sources) LAB DRAW - The labs drawn today include: EXECUTIVE PROFILE and PSA. The lab was ordered by Jodee GARNER. 07-28-2019 Unclassified (9 sources) Transition into care - The patient is transitioning into care from an emergency room ([place] 10/07/2024 - Elevated heart rate. Testing WNL except Creatinine 1.8. Pt states was sick w/ the flu at that time. Was told to follow up w/ PCP for abnormal labs. Continues to se Dr. Jo in [place] for CLL.) and a summary of care was reviewed. Note for Transition into care: Denies any flank pain. No difficulty urinating but does wake more often during the night than in the past. 10-28-2024 Past or Other Problems Problem Classification Problem Date Documented Da te Episodic/Chronic Nonspecific chest pain (7 sources) Chest pain; Translations: [Chest pain, unspecified] Onset: 10-18-2024 04-24-2024 Episodic Unclassified (20 sources) !Patient notification of lab results - Dr. Cisneros. The test(s) that you had done were/was blood work (Your iron was low at 51 and the white count was elevated (as you suspected from your recent visit with the sales property manager). Please take over the counter iron every other day (Ferrous sulfate either 324 or 325 mg daily)). You should call our office if you have any questions. 08-22-2021 Unclassified (7 sources) !Patient notification of lab results - Dr. Cisneros. The test(s) that you had done were/was blood work (The kidney function was back to normal. Please continue plenty of fluids.). You should call our office if you have any questions. 10-31-2024 Results Test Name Value Interpretation Reference Range Facility Anion gap in Serum or Plasma Ordered By: Humza Mcgarry on 06-09-2025 Anion gap [Moles/Vol] 7 mmol/L 12-30 [facility] BUN/creatinine ratioOrdered By: Humza Mcgarry on 06-09-2025 Urea nitrogen/Creatinine [Mass ratio] 18.8 mg/mg 06-06 [facility] Bilirubin, totalon Bilirubin [Mass/Vol] 1.16 mg/dL Normal 0.00-1.30 [facility] [employer] Work Phone: Comment on above: Performed By: #### L 500.4100, L500.4577 #### [facility] [address] [place], [place], [id number] Calculated very low density lipoprotein (VLDL) cholesterol measurementOrdered By: Humza Mcgarry on 06-09-2025 Calculated very low density lipoprotein (VLDL) cholesterol measurement 12 mg/dL [facility] Carbon dioxide, total [Moles /volume] in Central venous bloodon 06-09-2025 CO2 [Moles/Vol] 28.4 mmol/L Normal 21.0-32.0 [facility] Work Phone: Comment on above: Performed By: #### L 500.4100, L500.9594 #### [facility] [address] [place], [address] Chloride assayon 06-09-2025 Chloride [Moles/Vol] 105 mmol/L Normal 98-108 [facility] [employer] Work Phone: Comment on above: Performed By: #### L 500.4100, L500.4050 #### [facility] [address] [place], [address] Comprehensive Metabolic Prof eliseo 06-09-2025 ALK PHOS 63 U/L Normal 40-129 [facility]; [facility] Work Phone: Comment on above: Performed By: #### L 500.4100, [id number] #### [facility] [address] [place], [address] BUN/CRE 18.8 RATIO Normal 10-20 [facility] Comment on above: Performed By: #### L 500.4100, [id number] #### [facility] [address] [place], [address] GAP 7 Normal 5-15 [facility]; [facility] Work Phone: Comment on above: Performed By: #### L 500.4100, [id number] #### [facility] [address] [place], [address] Potassium [Moles/Vol] 4.8 mmol/L Normal 3.3-5.1 [facility]; [facility] Work Phone: Comment on above: Performed By: #### L 500.4100, [id number] #### [facility] [address] [place], [address] T PROT 6.4 g/dL Normal 5.9-8.4 [facility]; [facility] Work Phone: Comment on above: Performed By: #### L 500.4100, [id number] #### [facility] [address] [place], [address] AST [Catalytic activity/Vol] 18 U/L Normal <=37 [facility] Work Phone: Comment on above: Performed By: #### L 500.4100, [id number] #### [facility] [address] [place], [place], [id number] Glomerular filtration rate ( GFR) estimation/1.73 sq m using serum, plasma, or whole bon 06-09-2025 GFR/1.73 sq M.predicted among non-blacks MDRD (S/P/Bld) [Vol rate/Area] 77 mL/min/{1.73_m2} Normal >60 [facility] Work Phone: Comment on above: mL/min/1.73m2 CKD-EP I Creatinine Equation (2020) Result Comment: mL/m in/1.73m2 CKD-EPI Creatinine Equation (2020) Performed By: #### L 500.4100, [id number] #### [facility] [address] [place], [address] LDL calc ser/plason 06-09-20 25 Cholesterol in LDL [Mass/Vol] 123 mg/dL Normal [facility] Work Phone: Comment on above: Vtjaluixbb=897-753 m g/dL & Higher Wqke=051 mg/dL or greaterSampson Equation 2020 for LDL-C Result Comment: Bord qsiofu=329-369 mg/dL Higher Dhax=632 mg/dL or greater Sorto Equation 2020 for LDL-C Performed By: #### L 500.4100, [id number] #### [facility] [address] [place], [address] Lipid Profileon 06-09-2025 CHOL:HDL 4.05 Normal [facility]; [facility] Work Phone: Comment on above: Performed By: #### L 500.4100, [id number] #### [facility] [address] [place], [place], [id number] Cholesterol in VLDL [Mass/Vol] 12 mg/dL Normal 5-40 [facility]; [facility] [employer] [facility] Work Phone: Comment on above: Performed By: #### L 500.4100, [id number] #### [facility] [address] [place], [address] No Panel Informationon 06-09 BUN/CRE 18.8 {RATIO} Normal 10 - 20 {RATIO} [facility] [employer] [facility]; [facility] Work Phone: Office Visit Reporton 2024 Office Visit Report [facility] [address] [place] [address] OFFICE VISIT Date of Service: 06/09/25 MR#: [id number] Acct: [id number] Patient: SHAGGY CASAS Rep #: [id number] : 1945 Provider: Dr. Humza Mcgarry MD Age/Sex: 79/M Location: [facility] Status: Signed Intake Vital Signs 05/31/25 13:26 06/09/25 08:36 06/09/25 08:41 Height 5 ft 4 in Weight: 141 lb BMI 24.2 BP 165/88 H 143/78 H 133/77 H Blood Pressure Location Lt brachial Lt brachial Lt brachial Position Sitting Sitting Sitting Respiration 18 Pulse 84 64 65 Pulse Source Monitor Monitor Monitor Intake Visit Reasons: BP CHECK Chief Complaint: F/U for CLL. Accompanied by: Daughter Is patient in pain?: No Allergies No Known Allergies Allergy (Verified 05/31/25 13:31) Medications ???Medication ???Instructions ???Recorded ???Confirmed ???Type amlodipine 5 mg tablet 5 mg PO QDAY #90 tabs 05/31/25 Rx aspirin 81 mg tablet,delayed 81 mg PO BREAKFAST #90 tabs 06/09/25 Rx release atorvastatin 40 mg tablet 40 mg PO QHS #90 TABLETS 05/31/25 06/09/25 Rx clopidogrel 75 mg tablet (Plavix) 75 mg PO QDAY #90 tabs 05/31/25 1 Rx metoprolol tartrate 25 mg tablet 25 mg PO BID #180 tabs 05/31/25 Rx Have you fallen in the past year?: No Nursing Note Patient reports he picked up amlodipine evening after leaving last appt and started amlodipine and increased metoprolol dose that night. Reported chest pains on last visit but was also out of medications on last visit. States since being back on medication has had no chest pain. Bp checked 143/78 P 64 on first check. Let patient sit x 5 min and rechecked BP 133/77 P65. Spoke with MARK Ricketts who stated continue medications as is. Recheck BP at home periodically. If noticing his SBP>140's call office to follow up. Patient reported he does have something to check bp at home and will monitor. Clinical Quality Measures Falls Risk Screening/Assistive Devices Have you fallen in the past year?: No 06/13/25 0847 Date Humza Mcgarry MD Cosign Signature: Date (if applicable) CC: Normal [facility] Potassium measurement (mass/ volume)Ordered By: Humza Mcgarry on 06-09-2025 Potassium (Unsp spec) [Mass/Vol] 4.8 mmol/L 3.3-5.1 [facility] Screening total cholesterol/ high density lipoprotein (HDL) cholesterol ratioOrdered By: Humza Mcgarry on 06-09-2025 Cholesterol.total/Cheryl sterol in HDL [Mass ratio] 4.05 {ratio} [facility] Serum creatinine measurement (mass/volume)on 06-09-2025 Creatinine [Mass/Vol] 1.01 mg/dL Normal 0.70-1.20 [facility] [employer] Work Phone: Comment on above: Performed By: #### L 500.4100, L500.4050 #### [facility] [address] [place], [address] Serum globulin measurementon 06-09-2025 Globulin (S) [Mass/Vol] 2.4 g/dL Normal 2.2-4.2 [facility] Work Phone: Comment on above: Performed By: #### L 500.4100, L500.4050 #### [facility] [address] [place], [address] Serum glucose measurement (m ass/volume)on 06-09-2025 Glucose [Mass/Vol] 96 mg/dL Normal 70-99 [facility] Work Phone: Comment on above: Performed By: #### L 500.4100, L500.4050 #### [facility] [address] [place], [address] Serum or plasma alanine brantley otransferase (ALT) measurementon 06-09-2025 ALT [Catalytic activity/Vol] 12 U/L Normal <=46 [facility] Work Phone: Comment on above: Performed By: #### L 500.4100, [id number] #### [facility] [address] [place], [address] Serum or plasma albumin karson urement (mass/volume)on 06-09-2025 Albumin [Mass/Vol] 4.0 g/dL Normal 3.4-4.8 [facility] Work Phone: Comment on above: Performed By: #### L 500.4100, L500.4050 #### [facility] [address] [place], [address] Serum or plasma albumin/glob ulin mass ratioon 06-09-2025 Albumin/Globulin [Mass ratio] 1.7 {ratio} Normal 0.9-2.4 [facility] Work Phone: Comment on above: Performed By: #### L 500.4100, L500.4057 #### [facility] [address] [place], [place], [id number] Serum or plasma alkaline danny sphatase measurementOrdered By: Humza Mcgarry on 06-09-2025 ALP [Catalytic activity/Vol] 63 U/L 40-129 [facility] Serum or plasma calcium karson urement (mass/volume)on 06-09-2025 Calcium [Mass/Vol] 9.0 mg/dL Normal 7.6-11.0 [facility] Work Phone: Comment on above: Performed By: #### L 500.4100, I276.4476 #### [facility] [address] [place], [address] Serum or plasma cholesterol in HDL measurement (mass/volume)on 06-09-2025 Cholesterol in HDL [Mass/Vol] 44 mg/dL Normal [facility] Work Phone: Comment on above: National Cholesterol Education Program (NCEP) guidelines:<40 mg/dL: Low HDL-cholesterol (major risk factor for CHD)>= 60 mg/dL: High HDL-cholesterol (negative risk factor for CHD)HDL-cholesterol is affected by a number of factors, e.g. smoking, exercise, hormones, sex and age. Result Comment: [place] Cholesterol Education Program (NCEP) guidelines: <40 mg/dL: Low HDL-cholesterol (major risk factor for CHD) >= 60 mg/dL: High HDL-cholesterol (negative risk factor for CHD) HDL-cholesterol is affected by a number of factors, e.g. smoking, exercise, hormones, sex and age. Performed By: #### L 500.4100, L500.4050 #### [facility] [address] [place], [place], [id number] Serum or plasma cholesterol measurement (mass/volume)on 06-09-2025 Cholesterol [Mass/Vol] 178 mg/dL Normal <=[address] [facility] Work Phone: Comment on above: Cholesterol level, D esirable <200 mg/dLBorderline high cholesterol 200-239 mg/dLHigh cholesterol >=240 mg/dLRecommendations of the NCEP Adult Treatment Panel for the following risk-cutoff thresholds for the [place] population. Result Comment: Chol esterol level, Desirable <200 mg/dL Borderline high cholesterol 200-239 mg/dL High cholesterol >=240 mg/dL Recommendations of the NCEP Adult Treatment Panel for the following risk-cutoff thresholds for the [place] population. Performed By: #### L 500.4100, L500.4050 #### [facility] [address] [place], [place], [id number] Serum or plasma urea nitroge n measurement (mass/volume)on 06-09-2025 Urea nitrogen [Mass/Vol] 19 mg/dL Normal 4-19 [facility] Work Phone: Comment on above: Performed By: #### L 500.4100, L500.4050 #### [facility] [address] [place], [place], [address] Sodium levelon 06-09-2025 Sodium [Moles/Vol] 140 mmol/L Normal 133-145 [facility] Work Phone: Comment on above: Performed By: #### L 500.4100, L500.4050 #### [facility] [address] [place], [place], [id number] Total proteinOrdered By: Ars had Zeferino on 06-09-2025 Protein [Mass/Vol] 6.4 g/dL 5.9-8.4 [facility] Triglycerides measurementon 06-09-2025 Triglyceride [Mass/Vol] 60 mg/dL Normal [facility] Work Phone: Comment on above: The drugs N-Acetylcy steine and Metamizole may falsely depress this assay. Normal range: <150 mg/dLBorderline High: 150-199 mg/dLHigh: 200-499 mg/dLVery High: >500 mg/dL Result Comment: The drugs N-Acetylcysteine and Metamizole may falsely depress this assay. Normal range: <150 mg/dL Borderline High: 150-199 mg/dL High: 200-499 mg/dL Very High: >500 mg/dL Performed By: #### L 500.4100, L500.4050 #### [facility] [address] [place], [address] Cardiology Visit Reporton Cardiology Visit Report [facility] [address] [place] [address] OFFICE VISIT Date of Service: 05/31/25 MR#: [id number] Acct: [id number] Name: SHAGGY CASAS Rep #: [id number] : 1945 Provider: Dr. Humza Mcgarry MD Age/Sex: 79/M Location: [facility] [place] Status: Signed HPI HPI History of Present Illness Details: This pleasant gentleman with history of coronary artery disease with percutaneous intervention to a subtotally occluded RCA in March of last year is here for a follow-up visit. He ran out of his medications last month and has therefore not been taking his metoprolol or atorvastatin. He however has been taking his aspirin and Plavix. According to him, he has had a couple of episodes of chest pains since then. Not very specific about it. Denies any shortness of breath. No orthopnea PND. No ankle edema. Intake Vital Signs 02/22/25 14:40 05/31/25 13:26 Height 5 ft 4 in 5 ft 4 in Weight: 141 lb BMI 24.2 BP 165/88 H Blood Pressure Location Lt brachial Position Sitting Respiration 18 Pulse 84 Pulse Source Monitor Intake Visit Reasons: medication refills School Principal Required: No Accompanied by: Daughter Is patient in pain?: No Allergies No Known Allergies Allergy (Verified 05/31/25 13:31) Medications ???Medication ???Instructions ???Recorded ???Confirmed ???Type aspirin 81 mg tablet,delayed 81 mg PO BREAKFAST #90 tabs 05/20/25 Rx release clopidogrel 75 mg tablet (Plavix) 75 mg PO QDAY #90 tabs 05/12/24 1 Rx metoprolol tartrate 25 mg tablet 12.5 mg (1/2 x 25 mg) PO BID #90 0 05/12/24 05/20/25 Rx tabs atorvastatin 40 mg tablet 40 mg PO QHS #90 TABLETS 02/22/25 05/20/25 Rx Have you fallen in the past year?: No PFSH Medical History Hyperlipidemia SVT (supraventricular tachycardia) CLL (chronic lymphocytic leukemia) Urinary retention Left inguinal hernia Recurrent right inguinal hernia Arthritis Surgical History Status post coronary angioplasty (04/15/24) History of hernia repair ( 07/2018) History of nasal surgery Hx of bone graft Hx of right inguinal hernia repair Hx of appendectomy Family History Mother Breast cancer Social History household members: spouse housing: house Smoking Status: Never smoker second hand exposure: No alcohol intake: never substance use type: does not use caffeine: Yes what type of physical activity do you participate in: bicycling frequency: 5-6 times per week seatbelt use: always ROS Const Const: Negative for fatigue or weakness Eyes Eyes: Negative for change in vision ENT ENT: Negative for dizziness or balance problems Cardio Chest Pain: Yes Frequency: weekly Character: dull Location: mid sternal Duration: minutes Palpitations: No Edema: Right (history of broken leg) Resp Respiratory: Negative for SOB with activity, SOB at rest or SOB orthopnea SOB lying down GI GI: Negative nausea or heartburn Musc Musc: Negative for balance problems Neuro Neuro: Negative for dizziness, lightheadedness, near syncope, syncope or weakness Endo Endo: Negative for fatigue Cardiology Exam Const Appearance: comfortable and no acute distress Nutritional Appearance: well nourished Neck Neck: no JVD Carotids: Negative bruit Chest Auscultation: Bilateral: Clear to Auscultation Cardio Rate: regular rate Rhythm: regular rhythm Heart sounds: S1 normal and S2 normal Neuro General: patient alert, patient awake and patient oriented x3 Extremities Lower Extremity Edema: None: Bilateral Supplemental Info Supplemental Information Labs: LDL Cholesterol, (0-130) 98 mg/dL HDL Cholesterol, (40-) 42 mg/dL Cholesterol, (<=200) 108 mg/dL Triglycerides, (-199) 63 mg/dL Diagnostics: Electrocardiogram Stress Echocardiogram Cardiac Catheterization Chest X-Ray Chest CTA Abdomen/Pelvis CT Past Visits: Cardiology Visit Today Assessment and Plan Assessment and Plan (1) CAD (coronary artery disease): Status: Chronic Qualifiers: Coronary Disease-Associated Artery/Lesion type: [place] artery [place] vs. transplanted heart: [place] heart Associated angina: without angina Qualified Code(s): I25.10 - Atherosclerotic heart disease of [place] coronary artery without angina pectoris Comment: 70% Prox Mid, 80% Mid LAD, 60% Prox LCX; PCI to RCA Plan: Continue aspirin and Plavix. Chest pains twice since April. Resume metoprolol. Start amlodipine. Check Lexiscan stress Myoview. (2) History of coronary artery stent rama (more content not included)... Normal [facility] Bilirubin directOrdered By: Caleb Gutierrez on 03-08-2025 Bilirubin.direct [Mass/Vol] 0.36 mg/dL Abnormal 0.00 - 0.30 mg/dL [facility] Bilirubin, totalOrdered By: Caleb Gutierrez on 03-08-2025 Bilirubin [Mass/Vol] 0.82 mg/dL Normal 0.00 - 1.30 mg/dL [facility] Calculated very low density lipoprotein (VLDL) cholesterol measurementOrdered By: Caleb Gutierrez on 03-08-2025 Calculated very low density lipoprotein (VLDL) cholesterol measurement 13 mg/dL 5-40 [facility] LDL calc ser/plasOrdered By: Caleb Gutierrez on 03-08-2025 Cholesterol in LDL [Mass/Vol] 54 mg/dL Normal [facility] Comment on above: Fpggupoopz=703-896 m g/dL & Higher Zhjs=768 mg/dL or greater Laboratory - Chemistry and C hemistry - challengeOrdered By: Caleb Gutierrez on 03-08-2025 AST [Catalytic activity/Vol] 23 U/L Normal [facility] Lipid Profileon 03-08-2025 CHOL:HDL 2.58 Normal [facility], [facility] Work Phone: Comment on above: Performed By: #### L 500.4100, L500.3400 #### [facility] [address] [place], [address] Cholesterol [Mass/Vol] 108 mg/dL Normal <=200 [facility] Comment on above: Result Comment: Chol esterol level, Desirable <200 mg/dL Borderline high cholesterol 200-239 mg/dL High cholesterol >=240 mg/dL Recommendations of the NCEP Adult Treatment Panel for the following risk-cutoff thresholds for the [place] population. Performed By: #### L 500.4100, L500.3400 #### [facility] [address] [place], [address] Cholesterol in HDL [Mass/Vol] 42 mg/dL Normal [facility] Comment on above: Result Comment: [place] on[place] Cholesterol Education Program (NCEP) guidelines: <40 mg/dL: Low HDL-cholesterol (major risk factor for CHD) >= 60 mg/dL: High HDL-cholesterol (negative risk factor for CHD) HDL-cholesterol is affected by a number of factors, e.g. smoking, exercise, hormones, sex and age. Performed By: #### L 500.4100, L500.3400 #### [facility] [address] [place], [address] Cholesterol in LDL [Mass/Vol] 54 mg/dL Normal [facility] Comment on above: Result Comment: Bord dgktov=705-669 mg/dL Higher Sjgo=150 mg/dL or greater Performed By: #### L 500.4100, L500.3400 #### [facility] [address] [place], [address] Cholesterol in VLDL [Mass/Vol] 13 mg/dL Normal 5-40 [facility]; [facility] Work Phone: Comment on above: Performed By: #### L 500.4100, L500.3400 #### [facility] [address] [place], [address] Triglyceride [Mass/Vol] 63 mg/dL Normal [facility] Comment on above: Result Comment: The drugs N-Acetylcysteine and Metamizole may falsely depress this assay. Normal range: <150 mg/dL Borderline High: 150-199 mg/dL High: 200-499 mg/dL Very High: >500 mg/dL Performed By: #### L 500.4100, L500.3400 #### [facility] [address] [place], [address] Liver Profileon 03-08-2025 Albumin [Mass/Vol] 3.9 g/dL Normal 3.4-4.8 [facility] Comment on above: Performed By: #### L 500.4100, L500.3400 #### [facility] [address] [place], [address] ALK PHOS 71 U/L Normal 40-129 [facility]; [facility] Work Phone: Comment on above: Performed By: #### L 500.4100, L500.3400 #### [facility] [address] [place], [address] ALT [Catalytic activity/Vol] 22 U/L Normal <=46 [facility] Comment on above: Performed By: #### L 500.4100, L500.3400 #### [facility] [address] [place], [address] AST [Catalytic activity/Vol] 23 U/L Normal <=37 [facility] Comment on above: Performed By: #### L 500.4100, L500.3400 #### [facility] [address] [place], [address] Bilirubin [Mass/Vol] 0.82 mg/dL Normal 0.00-1.30 [facility] Comment on above: Performed By: #### L 500.4100, L500.3400 #### [facility] [address] [place], [address] Bilirubin.direct [Mass/Vol] 0.36 mg/dL High 0.00-0.30 [facility] Comment on above: Performed By: #### L 500.4100, L500.3400 #### [facility] [address] [place], [address] Globulin (S) [Mass/Vol] 2.2 g/dL Normal 2.2-4.2 [facility] Comment on above: Performed By: #### L 500.4100, L500.3400 #### [facility] [address] [place], [place], [address] T PROT 6.1 g/dL Normal 5.9-8.4 [facility]; [facility] Work Phone: Comment on above: Performed By: #### L 500.4100, L500.3400 #### [facility] [address] [place], [address] Screening total cholesterol/ high density lipoprotein (HDL) cholesterol ratioOrdered By: Caleb Gutierrez on 03-08-2025 Cholesterol.total/Cheryl sterol in HDL [Mass ratio] 2.58 {ratio} [facility] Serum globulin measurementOr dered By: Caleb Gutierrez on 03-08-2025 Globulin (S) [Mass/Vol] 2.2 g/dL Normal 2.2 - 4.2 g/dL [facility] Serum or plasma alanine brantley otransferase (ALT) measurementOrdered By: Caleb Gutierrez on 03-08-2025 ALT [Catalytic activity/Vol] 22 U/L Normal [facility] Serum or plasma albumin karson urement (mass/volume)Ordered By: Caleb Gutierrez on 03-08-2025 Albumin [Mass/Vol] 3.9 g/dL Normal 3.4 - 4.8 g/dL [facility] Serum or plasma alkaline danny sphatase measurementOrdered By: Caleb Gutierrez on 03-08-2025 ALP [Catalytic activity/Vol] 71 U/L 40-129 [facility] Serum or plasma cholesterol in HDL measurement (mass/volume)Ordered By: Caleb Gutierrez on 03-08-2025 Cholesterol in HDL [Mass/Vol] 42 mg/dL Normal [facility] Comment on above: National Cholesterol Education Program (NCEP) guidelines:<40 mg/dL: Low HDL-cholesterol (major risk factor for CHD)>= 60 mg/dL: High HDL-cholesterol (negative risk factor for CHD)HDL-cholesterol is affected by a number of factors, e.g. smoking, exercise, hormones, sex and age. Serum or plasma cholesterol measurement (mass/volume)Ordered By: Caleb Gutierrez on 03-08-2025 Cholesterol [Mass/Vol] 108 mg/dL Normal [facility] Comment on above: Cholesterol level, D esirable <200 mg/dLBorderline high cholesterol 200-239 mg/dLHigh cholesterol >=240 mg/dLRecommendations of the NCEP Adult Treatment Panel for the following risk-cutoff thresholds for the [place] population. Total proteinOrdered By: Juan Ramon Gutierrez on 03-08-2025 Protein [Mass/Vol] 6.1 g/dL 5.9-8.4 [facility] Triglycerides measurementOrd ered By: Caleb Gutierrez on 03-08-2025 Triglyceride [Mass/Vol] 63 mg/dL Normal [facility] Comment on above: The drugs N-Acetylcy steine and Metamizole may falsely depress this assay. Normal range: <150 mg/dLBorderline High: 150-199 mg/dLHigh: 200-499 mg/dLVery High: >500 mg/dL Cardiology Visit Reporton Cardiology Visit Report [facility] [address] [place] [address] OFFICE VISIT Date of Service: 02/22/25 MR#: [id number] Acct: [id number] Name: SHAGGY CASAS #: [id number] : 1945 Provider: MARK Solis Age/Sex: 79/M Location: [facility] [place] Status: Signed HPI HPI History of Present Illness Details: Shaggy casas is a 79-year-old male who presents to office today for follow-up for monitoring his cardiovascular health. He presented to [facility] 04/13/2024 with intermittent chest discomfort x 2 weeks. He underwent stress echocardiogram which was positive for ischemia. He underwent heart catheterization that demonstrated LAD 80% tubular mid lesion, RCA tubular 70% proximal lesion, tubular 99% mid lesion, tubular 80% distal lesion, collateral flows from LAD to the RT LV BR, circumflex 60% stenosis. Patient underwent stenting to his RCA. It was recommended if he continues to experience chest pain, he would then undergo stenting to his LAD. His chest pain resolved and he continued with medical management. He has a history of CLL and follows with Dr. Jo at [facility]. Upon presentation today, patient reports noticing a left-sided dull achiness pain in his chest that occurred 1 time about 2 months ago, lasted a couple seconds and resolved. He reports the feeling was different than prior episodes and has not recurred. He does not associate this with activity. His main concern today is easy bruising on his arms. Further ROS below. Intake Vital Signs 10/07/24 09:11 02/22/25 14:35 02/22/25 14:40 Height 5 ft 4 in 5 ft 4 in Weight: 139 lb 1.787 oz 138 lb BMI 23.8 BP 121/69 H 121/68 H Blood Pressure Location Lt brachial Position Sitting Respiration 14 16 Pulse 81 60 Pulse Source Monitor Temp 98.2 F Pulse Oximetry (%) 98 Intake Visit Reasons: 9 M [employer] Principal Required: No Accompanied by: Self Is patient in pain?: No Allergies No Known Allergies Allergy (Verified 02/22/25 14:35) Medications ???Medication ???Instructions ???Recorded ???Confirmed ???Type aspirin 81 mg tablet,delayed 81 mg PO BREAKFAST #90 tabs 02/22/25 Rx release clopidogrel 75 mg tablet (Plavix) 75 mg PO QDAY #90 tabs 05/12/24 0 02/22/25 Rx metoprolol tartrate 25 mg tablet 12.5 mg (1/2 x 25 mg) PO BID #90 0 05/12/24 02/22/25 Rx tabs atorvastatin 40 mg tablet 40 mg PO QHS #90 TABLETS 02/22/25 02/22/25 Rx Have you fallen in the past year?: No PFSH Medical History Hyperlipidemia SVT (supraventricular tachycardia) CLL (chronic lymphocytic leukemia) Urinary retention Left inguinal hernia Recurrent right inguinal hernia Arthritis Surgical History Status post coronary angioplasty (04/15/24) History of hernia repair ( 07/2018) History of nasal surgery Hx of bone graft Hx of right inguinal hernia repair Hx of appendectomy Family History Mother Breast cancer Social History household members: spouse housing: house Smoking Status: Never smoker second hand exposure: No alcohol intake: never substance use type: does not use caffeine: Yes what type of physical activity do you participate in: bicycling frequency: 5-6 times per week seatbelt use: always ROS Const Const: Negative for fatigue or weakness Eyes Eyes: Negative for change in vision ENT ENT: Negative for dizziness or balance problems Cardio Chest Pain: Yes Frequency: other (one time only) Character: dull Location: left chest Duration: minutes Palpitations: No Edema: None Muscle aches with walking: None Resp Respiratory: Negative for SOB with activity, SOB at rest or SOB orthopnea SOB lying down GI GI: Negative nausea or heartburn : Negative for hematuria Musc Musc: Negative for balance problems Neuro Neuro: Negative for dizziness, lightheadedness, near syncope, syncope or weakness Endo Endo: Negative for fatigue Cardiology Exam Const Appearance: cooperative, comfortable, no acute distress and well developed; Negative diaphoretic or ill appearing Nutritional Appearance: average body habitus Orientation: alert and oriented x3 Ambulating without assistive device Head Head: normal to inspection, normocephalic and atraumatic Ears: hearing grossly normal bilaterally Nose: external nose normal and Negative epistaxis Face and Sinus: face symmetric Eyes General: appearance normal, both eyes and all related structures Eyelids: eyelids normal Conjunctivae: conjunctivae normal; Negative scleral icterus EOM: EOM intact bilaterally Neck Neck: no JVD (more content not included)... Normal [facility] - Chemistry and C hemistry - challengeon 10-28-2024 Calcium [Mass/Vol] 9.1 mg/dL Normal 8.6 - 10. 2 mg/dL [facility] Work Phone: Chloride [Moles/Vol] 105 mmol/L Normal 96 - 10 6 mmol/L [facility]; [facility]. Work Phone: CO2 [Moles/Vol] 21 mmol/L Normal 20 - 29 mmol/L [facility]; [facility]. Work Phone: Creatinine [Mass/Vol] 1.02 mg/dL Normal 0.76 - 1.27 mg/dL [facility]; [facility] Work Phone: GFR/1.73 sq M.predicted among non-blacks MDRD (S/P/Bld) [Vol rate/Area] 76 mL/min/{1.73_m2} Normal [facility].; [facility]. Work Phone: Glucose [Mass/Vol] 92 mg/dL Normal 70 - 99 mg/dL [facility].; [facility] Work Phone: Potassium [Moles/Vol] 4.1 mmol/L Normal 3.5 - 5.2 mmol/L [facility]; [facility] Work Phone: Sodium [Moles/Vol] 140 mmol/L Normal 134 - 144 mmol/L [facility] Work Phone: Urea nitrogen [Mass/Vol] 21 mg/dL Normal 8 - 27 mg/dL [facility]; [facility] Work Phone: Urea nitrogen/Creatinine [Mass ratio] 21 mg/mg Normal 10 - 24 [facility]; [facility] Work Phone: Yovanny 10-22-2024 FAITH Telephone (HEMAWS) ---- DOLORESSHAGGY Robles ([id number]) 1945 M Date Time Provider Department 10/22/24 TOSHIA BOOKER During your visit today, we recorded the following information about you: Leonie Francois 10/22/2024 10:55 AM Signed Patient requesting 10/15 lab results Toshia Booker APRN.WILL 10/28/2024 12:51 PM Signed Please inform pt. that his WBC's are overall stable over the past few years. Hgb is down some. Will repeat labs and monitor as scheduled. Please mail CBC to pt. Thank you. Toshia Booker APRN.Leah Henson LPN 10/28/2024 1:52 PM Signed Pt. Notified of lab results, copy of results mailed to pts. Home. Leah Ingram LPN Allergies As of Date: 10/22/2024 (No Known Allergies) Date Reviewed: 10/15/2024 Reviewed by: Toshia Booker APRN.WILL - Fully Assessed Reason for Visit: Results [95] Prescriptions as of 10/28/2024 - clopidogrel (PLAVIX) 75 mg tablet Take 75 mg by mouth once daily. - aspirin, enteric coated (ASPIRIN, ENTERIC COATED) 81 mg EC tablet Take 81 mg by mouth daily with breakfast. - metoprolol tartrate, short acting, (LOPRESSOR) 25 mg tablet Take 0.5 tablets by mouth every 12 hours. - atorvastatin (LIPITOR) 40 mg tablet Take 40 mg by mouth daily at bedtime. - MEDICATION, NON-DATABASE For life transfer factor Problem List As Of Date 10/22/2024 Noted Resolved CLL (chronic lymphocytic leukemia) ([facility]) [C91.1*08/15/2020 Encounter Status:Closed by LEAH INGRAM on 10/28/[address] [facility] 10-18-2024 FAITH Telephone (HEMAWS) ---- SHAGGY CASAS ([id number]) 1945 M Date Time Provider Department 10/18/24 TOSHIA BOOKER During your visit today, we recorded the following information about you: Toshia Booker APRN.WILL 10/18/2024 1:59 PM Signed Please schedule OV with CBC/diff in 6 months. Thank you. Toshia Booker APRN.Jessica Brian 10/18/2024 3:04 PM Signed This pt has been scheduled as directed. Jessica Gandhi Allergies As of Date: 10/18/2024 (No Known Allergies) Date Reviewed: 10/15/2024 Reviewed by: Toshia Booker APRN.WILL - Fully Assessed Prescriptions as of 10/18/2024 - clopidogrel (PLAVIX) 75 mg tablet Take 75 mg by mouth once daily. - aspirin, enteric coated (ASPIRIN, ENTERIC COATED) 81 mg EC tablet Take 81 mg by mouth daily with breakfast. - metoprolol tartrate, short acting, (LOPRESSOR) 25 mg tablet Take 0.5 tablets by mouth every 12 hours. - atorvastatin (LIPITOR) 40 mg tablet Take 40 mg by mouth daily at bedtime. - MEDICATION, NON-DATABASE For life transfer factor Problem List As Of Date 10/18/2024 Noted Resolved CLL (chronic lymphocytic leukemia) ([facility]) [C91.1*08/15/2020 Encounter Status:Closed by JESSICA GANDHI on 10/18/24 Normal [facility] CBC W Auto Diff [place] 2024 Basophils (Bld) [#/Vol] 0.00 10*3/uL Normal [employer] [facility] [employer] Work Phone: Comment on above: Order Comment: Speci men Type: BLOOD SPECIMEN Ordering Facility: [facility] Address: [address] [place] [address] Performed By: #### 5 7021-8 #### [facility] PENDING S[facility] CLIA [id number] [facility] [address] CLIA [id number] [address] [place] [address] LAB CLIA [id number] [address] [place] [address] [place] Basophils/100 WBC (Bld) 0.0 % Normal [facility] [employer] [facility] [employer] Work Phone: Comment on above: Order Comment: Speci men Type: BLOOD SPECIMEN Ordering Facility: [facility] Address: [address] [place] [address] Performed By: #### 5 7021-8 #### ADITIT[facility] PENDING SALE TO [facility] CLIA [id number] [facility] [address] STATES OF [facility] CLIA [id number] [address] [place] [address] LAB CLIA [id number] [address] [place] [address] [place] Eosinophils (Bld) [#/Vol] 0.67 10*3/uL Abnormal [employer] [facility] Work Phone: Comment on above: Order Comment: Speci men Type: BLOOD SPECIMEN Ordering Facility: [facility] Address: [address] [place] [address] Performed By: #### 5 7021-8 #### [facility]END[facility] CLIA [id number] CLIA [id number] [address] STATES [facility] CLIA [id number] [address] [place] [address] [place] Eosinophils/100 WBC (Bld) 1.0 % Normal [facility] Work Phone: Comment on above: Order Comment: Speci men Type: BLOOD SPECIMEN Ordering Facility: [facility] Address: [address] [place] [address] Performed By: #### 5 7021-8 #### [facility] PEND[facility] CLIA [id number] [address] CLIA [id number] [address] LAB CLIA [id number] [address] [place] [address] [place] Erythrocyte distribution width (RBC) [Ratio] 14.6 % Normal 11.5 - 15.0 % [facility] [employer] [facility] [employer] [facility] Work Phone: Comment on above: Order Comment: Speci men Type: BLOOD SPECIMEN Ordering Facility: [facility] Address: [address] [place] [address] Performed By: #### 5 7021-8 #### IVORY PENDING SALE TO [facility] CLIA [id number] [address] STATES OF [facility] CLIA [id number] [address] [place] [address] [place] [facility] CLIA [id number] [address] [place] [address] [place] Hematocrit (Bld) [Volume fraction] 38.9 % Abnormal 39.0 - 51.0 % [facility].; [facility], [facility]. Work Phone: Comment on above: Order Comment: Speci men Type: BLOOD SPECIMEN Ordering Facility: [facility] Address: [address] [place] [address] Performed By: #### 5 7021-8 #### IVORY PENDING SALE TO [facility] CLIA [id number] [address] CLIA [id number] [address] [place] [address] [place] [facility] CLIA [id number] [address] [place] [address] [place] Hemoglobin (Bld) [Mass/Vol] 12.7 g/dL Abnormal 13.0 - 17.0 g/dL [facility], [facility].; [facility], [facility]. Work Phone: Comment on above: Order Comment: Speci men Type: BLOOD SPECIMEN Ordering Facility: [facility] Address: [address] [place] [address] Performed By: #### 5 7021-8 #### IVORY PENDING SALE [facility] CLIA [id number] [address] [place] [address] [place] [facility] CLIA [id number] [address] [place] [address] [place] [facility] CLIA [id number] [address] [place] [address] [place] Lymphocytes (Bld) [#/Vol] 61.91 10*3/uL Abnormal 1.00 - 4.00 10*3/uL [facility] HospitalOsteoplastics.; [facility]ENTERflipClass [place] [employer]Mail [facility] Center[facility]. Work Phone: Comment on above: Order Comment: Speci men Type: BLOOD SPECIMEN Ordering Facility: [facility] Address: [address] [place] [address] Performed By: #### 5 7021-8 #### IVORY PENDING SALE TO [facility] CLIA [id number] [address] [place] [address] [place] [facility] CLIA [id number] [address] [place] [address] LAB CLIA [id number] [address] [place] [address] [place] Lymphocytes/100 WBC (Bld) 93.0 % Normal [facility], [employer].; [facility], [employer]. Work Phone: Comment on above: Order Comment: Speci men Type: BLOOD SPECIMEN Ordering Facility: [facility] Address: [address] [place] [address] Performed By: #### 5 7021-8 #### ADITITIFFANIE PENDING SALE TO [facility] CLIA [id number] [facility] [address] CLIA [id number] [address] [place] [address] STATES OF [facility] CLIA [id number] [address] [place] [address] [place] MCH (RBC) [Entitic mass] 32.0 pg Normal 26.0 - 34.0 pg [facility]om[facility] HospitalBioFire Diagnostics [facility] HealthOsteoplastics.; [email or web address] [facility] [employer] [facility], [facility]. Work Phone: Comment on above: Order Comment: Speci men Type: BLOOD SPECIMEN Ordering Facility: [facility] Address: [address] [place] [address] Performed By: #### 5 7021-8 #### IVORY PENDING SALE TO [facility] CLIA [id number] [address] STATES OF [facility] CLIA [id number] [address] [place] [address] LAB CLIA [id number] [address] [place] [address] [place] MCHC (RBC) [Mass/Vol] 32.6 g/dL Normal 30.5 - 36.0 g/dL [facility].; [facility], [facility]. Work Phone: Comment on above: Order Comment: Speci men Type: BLOOD SPECIMEN Ordering Facility: [facility] Address: [address] [place] [address] Performed By: #### 5 7021-8 #### IVORY PENDING SALE [facility] CLIA [id number] [facility] [address] STATES [facility] CLIA [id number] [address] [place] [address] STATES [facility] LAB CLIA [id number] [address] [place] [address] [place] MCV (RBC) [Entitic vol] 98.0 fL Normal 80.0 - 100.0 fL [facility], [facility].; [facility], Inc. Work Phone: Comment on above: Order Comment: Speci men Type: BLOOD SPECIMEN Ordering Facility: [facility] Address: [address] [place] [address] Performed By: #### 5 7021-8 #### IVORY PENDING SALE [facility] CLIA [id number] [address] CLIA [id number] [address] STATES OF ESE [facility] CLIA [id number] [address] [place] [address] [place] Monocytes (Bld) [#/Vol] 0.67 10*3/uL Normal [facility], Inc.; [facility], Inc. Work Phone: Comment on above: Order Comment: Speci men Type: BLOOD SPECIMEN Ordering Facility: [facility] Address: [address] [place] [address] Performed By: #### 5 7021-8 #### IVORY PENDING SALE [facility] CLIA [id number] [address] [place] [address] [place] [facility] CLIA [id number] [address] [place] [address] STATES OF [facility] CLIA [id number] [address] [place] [address] [place] Monocytes/100 WBC (Bld) 1.0 % Normal [facility], Inc.; [facility] [employer] [facility], Inc. Work Phone: Comment on above: Order Comment: Speci men Type: BLOOD SPECIMEN Ordering Facility: [facility] Address: [address] [place] [address] Performed By: #### 5 7021-8 #### ADITIHEATHER PENDING SALE TO [facility] CLIA [id number] [facility] [place] [address] [place] [facility] CLIA [id number] [address] [place] [address] [place] [facility] CLIA [id number] [address] [place] [address] [place] Neutrophils (Bld) [#/Vol] 3.33 10*3/uL Normal 1.45 - 7.50 10*3/uL [facility] HospitalBioFire Diagnostics [facility], Inc.; [facility], Inc. Work Phone: Comment on above: Order Comment: Speci men Type: BLOOD SPECIMEN Ordering Facility: [facility] Address: [address] [place] [address] Performed By: #### 5 7021-8 #### IVORY PENDING SALE [facility] CLIA [id number] [address] [place] [address] [place] [facility] CLIA [id number] [address] [place] [address] [place] [facility] CLIA [id number] [address] [place] [address] [place] Neutrophils/100 WBC (Bld) 5.0 % Normal [facility].; [facility]. Work Phone: Comment on above: Order Comment: Speci men Type: BLOOD SPECIMEN Ordering Facility: [facility] Address: [address] [place] [address] Performed By: #### 5 7021-8 #### IVORY PENDING SALE [facility] CLIA [id number] [address] [place] [address] [place] [facility] CLIA [id number] [address] LAB CLIA [id number] [address] [place] [address] [place] Platelet mean volume (Bld) [Entitic vol] 9.6 fL Normal 9.0 - 12.7 fL [facility] CenterOste[facility].; [facility] AngelesO[facility]. Work Phone: Comment on above: Order Comment: Speci men Type: BLOOD SPECIMEN Ordering Facility: [facility] Address: [address] [place] [address] Performed By: #### 5 7021-8 #### IVORY PENDING SALE [facility] CLIA [id number] [address] [place] [address] [place] [facility] CLIA [id number] [address] [place] [address] [place] [facility] CLIA [id number] [address] [place] [address] [place] Platelets (Bld) [#/Vol] 276 10*3/uL Normal 150 - 400 10*3/uL [facility].; [facility] AngelesO[facility]. Work Phone: Comment on above: Order Comment: Speci men Type: BLOOD SPECIMEN Ordering Facility: [facility] Address: [address] [place] [address] Result Comment: No c lot detected. Performed By: #### 5 7021-8 #### IVORY PENDING SALE [facility] CLIA [id number] [address] CLIA [id number] [address] [place] [address] STATES [facility] CLIA [id number] [address] [place] [address] [place] RBC (Bld) [#/Vol] 3.97 10*6/uL Abnormal 4.20 - 6.0 0 m/uL [facility].; [facility] AngelesO[facility]. Work Phone: Comment on above: Order Comment: Speci men Type: BLOOD SPECIMEN Ordering Facility: [facility] Address: [address] [place] [address] Performed By: #### 5 7021-8 #### IVORY PENDING SALE [facility] CLIA [id number] [address] CLIA [id number] [address] [place] [address] LAB CLIA [id number] [address] [place] [address] [place] RED CELL MORPH Reviewed: unremarkable Normal [facility].; [facility]. Work Phone: Comment on above: Order Comment: Speci men Type: BLOOD SPECIMEN Ordering Facility: [facility] Address: [address] [place] [address] Performed By: #### 5 7021-8 ###Carlos DODSON PENDING SALE TO [facility] CLIA [id number] [facility] [place] [address] [place] [facility] CLIA [id number] [address] [place] [address] [place] [facility] CLIA [id number] [address] [place] [address] [place] WBC (Bld) [#/Vol] 66.57 10*3/uL Abnormal 3.70 - 11 .00 10*3/uL [facility] Center[facility].; [facility]. Work Phone: Comment on above: Order Comment: Speci men Type: BLOOD SPECIMEN Ordering Facility: [facility] Address: [address] [place] [address] Result Comment: Resu lts checked and verified.No clot detected. Performed By: #### 5 7021-8 ###Carlos DODSON PENDING SALE TO [facility] CLIA [id number] [address] [place] [address] [place] [facility] CLIA [id number] [address] [place] [address] [place] [facility] CLIA [id number] [address] [place] [address] [place] CBC W Auto Differential pane l (Bld)on 10-15-2024 Differential cell count method Nom (Bld) Manual Normal [facility] Comment on above: Order Comment: Speci men Type: BLOOD SPECIMEN Ordering Facility: [facility] Address: [address] [place] [address] Performed By: #### 5 7021-8 ###Carlos DODSON PENDING SALE TO [facility] CLIA [id number] [address] [place] [address] [place] [facility] CLIA [id number] [address] [place] [address] [place] [facility] CLIA [id number] [address] [place] [address] [place] Nucleated RBC (Bld) [#/Vol] 10*3/uL Normal <0.01 [facility] Comment on above: Order Comment: Speci men Type: BLOOD SPECIMEN Ordering Facility: [facility] Address: [address] [place] [address] Performed By: #### 5 7021-8 #### IVORY PENDING SALE [facility] CLIA [id number] [address] [place] [address] [place] [facility] CLIA [id number] [address] [place] [address] [place] [facility] CLIA [id number] [address] [place] [address] [place] Nucleated RBC/100 WBC (Bld) [Ratio] 0.0 /100 WBC Normal [facility] Comment on above: Order Comment: Speci men Type: BLOOD SPECIMEN Ordering Facility: [facility] Address: [address] [place] [address] Performed By: #### 5 7021-8 #### IVORY PENDING SALE [facility] CLIA [id number] [address] [place] [address] [place] [facility] CLIA [id number] [address] [place] [address] [place] [facility] CLIA [id number] [address] [place] [address] [place] Platelets Estimate (Bld) [#/Vol] Adequate Normal [facility] Comment on above: Order Comment: Speci men Type: BLOOD SPECIMEN Ordering Facility: [facility] Address: [address] [place] [address] Performed By: #### 5 7021-8 #### IVORY PENDING SALE [facility] CLIA [id number] [address] OF ESE [facility] CLIA [id number] [address] [place] [id number] [place] [address] OF [facility] CLIA [id number] [address] [facility] [address] CNOVSPon 10-15-2024 CNOVSP Visit (SP) Office (HEMAWS) ---- SHAGGY CASAS ([id number]) 1945 M Date Time Provider Department 10/15/24 10:30 AM TOSHIA BOOKER During your visit today, we recorded the following information about you: Temperature Pulse Blood pressure Weight 98.7 degrees 62/minute 121/71 62.6 kg Toshia Booker APRN.DRY SAND MOLDER 10/15/2024 10:27 AM Signed Chief Complaint Patient presents with: Established Patient HPI: Shaggy Casas is a 78 year old male who presents here today for follow up CLL. Per Dr. Jo's previous note: H/o hernia repair. He was found to have lymphocytosis. He was referred to Dr. Gaming who confirmed his diagnosis of CLL. He had no painful adenopathy, early satiety, hepatosplenomegaly, anemia or thrombocytopenia. He denies fever, chills, night sweat, fatigue or weight loss. He has no family history of leukemia or lymphoma. He does not smoke tobacco or drink alcohol. At last visit pt. was having chest pain-was sent to ED/admitted/receive d 4 stents. Followed by [facility]. I feel better. Appetite:Good. Wt. stable. Energy level:Good. Denies fevers. I had a bug a week ago. It lasted about two days. Resp:denies cough or sob Cardiac:denies chest pain/palpitations-s /p 4 stents 2023-followed by [facility] GI:denies abd pain, n/v, moving bowels reguarly :denies dysuria/hematuria Extrem:denies pain Neuro:denies symptoms of neuropathy Skin:denies rashes/lesions Heme:denies bleeding The ROS is otherwise negative. Past medical history, appointments, medications, allergies reviewed. No changes. EXAM: BP 121/71 Pulse 62 Temp 37.1 ?C (98.7 ?F) (Temporal) Wt 62.6 kg (138 lb 0.1 oz) SpO2 91% BMI 24.45 kg/m? APPEARANCE Well appearing, alert, in no acute distress, well-hydrated, well nourished. HEART RRR with normal S1 and S2, no murmurs LUNG clear to auscultation LYMPH NODESNo cervical lymphadenopathy, No supraclavicular lymphadenopathy, and No axillary lymphadenopathy. ABDOMEN bowel sounds normoactive, soft, non-tender EXTREMITIES No edema NEURO Awake, alert and oriented x 3, Normal gait, and No involuntary motions. SKIN Skin color, texture, turgor normal, no suspicious rashes or lesions LABS: Pending ASSESSMENT/PLAN: 1. CLL (chronic lymphocytic leukemia) (HCC) - ICD9: 204.10, ICD10: C91.10 URIOSTEGUI stage 0 chronic lymphocytic leukemia (CD5 positive, CD23 positive CD38 negative with Light chain restriction) Asymptomatic. - No concerning findings on exam. - CBC pending. - Continue follow up with DERM/PCP/Cards. - Follow up pending CBC/diff today. - Pt. aware to call office with any questions/concerns. The patient indicates understanding of these issues and agrees with the plan. All documentation from previous visit of 04/13/24-Drs. Cancino/Deysi/myself was copied and pasted, documentation has been reviewed and edited as necessary for today's visit. Toshia Booker APRN.WILL Referring Provider: TOSHIA BOOKER [[id number]] Allergies As of Date: 10/15/2024 (No Known Allergies) Date Reviewed: 10/15/2024 Reviewed by: Toshia Booker APRN.DRY SAND MOLDER - Fully Assessed Reason for Visit: Established Patient [175] Primary Visit Diagnosis:CLL (chronic lymphocytic leukemia) (HCC) [C91.10] Follow-up and Disposition History for Encounter Date Provider Department Center 10/15/2024 [id number], [facility] Prescriptions as of 10/15/2024 - clopidogrel (PLAVIX) 75 mg tablet Take 75 mg by mouth once daily. - aspirin, enteric coated (ASPIRIN, ENTERIC COATED) 81 mg EC tablet Take 81 mg by mouth daily with breakfast. - metoprolol tartrate, short acting, (LOPRESSOR) 25 mg tablet Take 0.5 tablets by mouth every 12 hours. - atorvastatin (LIPITOR) 40 mg tablet Take 40 mg by mouth daily at bedtime. - MEDICATION, NON-DATABASE For life transfer factor Problem List As Of Date 10/15/2024 Noted Resolved CLL (chronic lymphocytic leukemia) (HCC) [C91.1*08/15/2020 Encounter Status:Closed by TOSHIA BOOKER on 10/15/24 Normal [facility] No Panel Informationon 10-15 Differential method Bld Manual Normal [facility] [employer].; Adept [employer] [facility] [employer]. Work Phone: nRBC # Bld Auto <0.01 Normal [facility] Manuel [employer] [facility]steoplastics.; [email or web address] [employer] [facility]. Work Phone: nRBC/100 WBC Bld-Rto 0.0 {/100_WBC} Normal [facility] Dot VN [facility].; [employer]pt [employer] [facility] [employer] [facility]. Work Phone: Performing Lab See Note Normal [facility] [employer].; Adept [employer] [facility] [employer]. Work Phone: Platelet # Bld Est Adequate Normal [facility] [employer].; [email or web address] [place] [employer] [facility] Dot VN [facility] HealthOsteoplastics. Work Phone: CBC W/Diff, Automatedon - PATH REV Reviewed Normal [facility] Comment on above: Result Comment: Abso lute lymphocytosis suggestive of low grade lympho- proliferative disorder. Clinical correlation is necessary. Carlos Eduardo Cevallos M.D. 10/08/24 AMENDED REPORT 10/08/24 1343 PATH REV previously reported as: December Performed By: #### L 100.0100, L501.4020, L500.2500 #### [facility] [address] [place], [address] 12 Lead EKGon 10-07-2024 12 Lead EKG [facility] [address] [place] [address] 12 Lead EKG 10/07/24 0921 MR#: [id number] Acct: [id number] Name: SHAGGY CASAS Rep #: [id number] : 1945 78 From: Barber Fan MD Attending Dr: Status: DEP ER Ordering Dr: Herbert Quintero MD Date: 10/07/24 Location: ED Sex: M C Admitted: Test Reason : CP Blood Pressure : */* mmHG Vent. Rate : 74 BPM Atrial Rate : 74 BPM P-R Int : 130 ms QRS Dur : 78 ms QT Int : 392 ms P-R-T Axes : 64 58 43 degrees QTcB Int : 435 ms Normal sinus rhythm Nonspecific ST and T wave abnormality Abnormal ECG Confirmed by BARBER FAN ([id number]), design editor JOSE MIGUEL SEALS ([id number]) on 10/11/2024 7:09:45 AM Referred By: Confirmed By: BARBER FAN 10/11/24 0709 Date Barber Fan MD CC: Dr. Anthony Cisneros MD; Dr. Herbert Quintero MD Signed Normal [facility] Basic Metabolic Profile (BMP )on 10-07-2024 BUN/CRE 22.2 RATIO High 06-06 [facility] Comment on above: Order Comment: 'TROP ' Serial specimen #1, #2 or #3: 1 Performed By: #### L 100.0100, L501.4020, L500.2500 #### [facility] [address] [place], [address] CA,Total 8.8 mg/dL Normal 8.5-10.1 [facility] Comment on above: Order Comment: 'TROP ' Serial specimen #1, #2 or #3: 1 Performed By: #### L 100.0100, L501.4020, L500.2500 #### [facility] [address] [place], [address] Chloride [Moles/Vol] 107 mmol/L Normal 98-107 [facility] Comment on above: Order Comment: 'TROP ' Serial specimen #1, #2 or #3: 1 Performed By: #### L 100.0100, L501.4020, L500.2500 #### [facility] [address] [place], [address] CO2 [Moles/Vol] 26.0 mmol/L Normal 21.0-32.0 [facility] Comment on above: Order Comment: 'TROP ' Serial specimen #1, #2 or #3: 1 Performed By: #### L 100.0100, L501.4020, L500.2500 #### [facility] [address] [place], [address] Creatinine [Mass/Vol] 1.80 mg/dL High 0.70-1.30 [facility] Comment on above: Order Comment: 'TROP ' Serial specimen #1, #2 or #3: 1 Result Comment: The validity of the calculated GFR GFRAA in patients over 70 years has not been determined. Clinical correlation is essential. Performed By: #### L 100.0100, L501.4020, L500.2500 #### [facility] [address] [place], [address] ECRCL 29.23 ml/min Normal [facility] Comment on above: Order Comment: 'TROP ' Serial specimen #1, #2 or #3: 1 Performed By: #### L 100.0100, L501.4020, L500.2500 #### [facility] [address] [place], [address] EST GFR - AA 47 mL/min Low >60 [facility] Comment on above: Order Comment: 'TROP ' Serial specimen #1, #2 or #3: 1 Result Comment: Afri can [place] GFR Calc Performed By: #### L 100.0100, L501.4020, L500.2500 #### [facility] [address] [place], [address] GAP 6 Normal 5-15 [facility] Comment on above: Order Comment: 'TROP ' Serial specimen #1, #2 or #3: 1 Performed By: #### L 100.0100, L501.4020, L500.2500 #### [facility] [address] [place], [address] GFR/1.73 sq M.predicted among non-blacks MDRD (S/P/Bld) [Vol rate/Area] 39 mL/min/{1.73_m2} Low >60 [facility] Comment on above: Order Comment: 'TROP ' Serial specimen #1, #2 or #3: 1 Result Comment: Non- GFR Calc Performed By: #### L 100.0100, L501.4020, L500.2500 #### [facility] [address] [place], [address] Glucose [Mass/Vol] 115 mg/dL High 74-106 [facility] Comment on above: Order Comment: 'TROP ' Serial specimen #1, #2 or #3: 1 Result Comment: Fast ing Glucose result from 100 to 125 mg/dL suggests IMPAIRED HOMEOSTASIS per A.D.A. criteria. Performed By: #### L 100.0100, L501.4020, L500.2500 #### [facility] [address] [place], [address] Potassium [Moles/Vol] 4.5 mmol/L Normal 3.5-5.1 [facility] Comment on above: Order Comment: 'TROP ' Serial specimen #1, #2 or #3: 1 Performed By: #### L 100.0100, L501.4020, L500.2500 #### [facility] [address] [place], [address] Sodium [Moles/Vol] 139 mmol/L Normal 136-145 [facility] Comment on above: Order Comment: 'TROP ' Serial specimen #1, #2 or #3: 1 Performed By: #### L 100.0100, L501.4020, L500.2500 #### [facility] [address] [place], [address] Urea nitrogen [Mass/Vol] 40 mg/dL High 7-18 [facility] Comment on above: Order Comment: 'TROP ' Serial specimen #1, #2 or #3: 1 Performed By: #### L 100.0100, L501.4020, L500.2500 #### [facility] [address] [place], [address] Emergency Department Summary on 10-07-2024 Emergency Department Summary [facility] Medical Records Department [address] [place] [address] Emergency Department Summary 10/07/24 MR#: [id number] Acct: [id number] Name: SHAGGY CASAS Rep #: [id number] : 1945 78 From: Herbert Quintero MD PCP: Dr. Anthony Cisneros MD Status:REG ER Location: ED HPI History of Present Illness Chief Complaint: Chest Pain Detail of Chief Complaint: Midsternal chest pain Informant: patient Onset/Context/Timin g Onset: Yesterday Activity at onset: sudden Timing: Intermittent (10 hours) Quality: Positive for Pain Location: Substernal Current Severity: Gone Maximum Severity: Moderate Worsened By: Nothing Relieved By: Nothing Associated Symptoms: Negative for Nausea, Vomiting, Diaphoresis, Dyspnea, Cough, Fever, Lightheadedness, Acid Reflux or Palpitations Narrative Narrative: Patient is a 78-year-old male with history of CLL, coronary artery disease with placement of multiple stents March 2024 at that time he had a slight elevation of troponin to 88. He underwent stress echo which demonstrated signs of cardiac ischemia. He underwent cardiac catheterization with stent placement to his mid LAD. He is presently on aspirin, metoprolol and Plavix. He took his medications this morning prior to arrival. He states the pain resolved approximately 1 hour prior to presentation. He states that stopped 1 hour after he took his Plavix dose. He denies history peptic ulcer disease, hiatal hernia or reflux. He denies black or maroon-colored stool. Patient was moving furniture when he had the onset his pain. There is no associated symptoms and he had no radiation. Prior Similar Symptoms: Yes and With Prior Angina Recent Illness/Hospitaliza tion: No CVD Risk Factors: Negative for Hypertension, Diabetes, Hypercholesterolemi a, Family History 1' or Smoking PE Risk Factors: Negative for Recent Travel/Surgery, Recent Immobilization, Prior DVT or PE, Cancer or OCP + Smoking + >/=35 TAD Risk Factors: Negative for Marfan's Syndrome, Hypertension or Family History PFSH [facility] Medical History Hyperlipidemia SVT (supraventricular tachycardia) CLL (chronic lymphocytic leukemia) Urinary retention Left inguinal hernia Recurrent right inguinal hernia Arthritis Home Medications ???Medication ???Instructions ???Recorded ???Last Taken ???Type aspirin 81 mg tablet,delayed 81 mg PO BREAKFAST #90 tabs Unknown Rx release atorvastatin 40 mg tablet 40 mg PO QHS #90 tabs 05/12/24 Unk nown Rx clopidogrel 75 mg tablet (Plavix) 75 mg PO QDAY #90 tabs 05/12/24 U nknown Rx metoprolol tartrate 25 mg tablet 12.5 mg (1/2 x 25 mg) PO BID #90 0 05/12/24 Unknown Rx tabs Allergy/AdvReac Type Severity Reaction Status Date / Time No Known Allergies Allergy Verified 10/07/24 09:10 Family History Mother Breast cancer Surgical History Status post coronary angioplasty (04/15/24) History of hernia repair ( 07/2018) History of nasal surgery Hx of bone graft Hx of right inguinal hernia repair Hx of appendectomy Social History household members: spouse housing: house Smoking Status: Never smoker second hand exposure: No alcohol intake: never substance use type: does not use caffeine: Yes what type of physical activity do you participate in: bicycling frequency: 5-6 times per week seatbelt use: always ROS ROS ED Constitutional Constitutional ED: Denies chills or fever(s) Eyes Eyes: Reports none ENT ENT ED: Denies rhinorrhea or sore throat Cardiovascular Cardiovascular: Reports as per HPI; Denies orthopnea or paroxysmal nocturnal dyspnea Respiratory/Chest Respiratory/Chest: Denies cough, dyspnea, dyspnea on exertion, orthopnea or paroxysmal nocturnal dyspnea Gastrointestinal Gastrointestinal: Denies abdominal pain, nausea or vomiting Musculoskeletal Musculoskeletal: Denies arthralgias, back pain, myalgias or neck pain Integumentary Denies rash Endocrine Endocrinology: Denies cold intolerance or heat intolerance EXAM Physical Exam Const Vital Signs: 10/07/24 09:11 Temperature 98.2 F Temperature Source Temporal Pulse Rate 81 Respiratory Rate 14 Blood Pressure 121/69 H Blood Pressure Mean 86 Pulse Ox 98 Oxygen Delivery Method Room Air Positive well nourished and well developed General Appearance ED: well developed, NAD and pallor HEENT Reports moist mucous membranes normocephalic and atraumatic Eyes PERRL and EOMs intact bilaterally General Eye ED: Negative for pale conjunctiva or scleral icterus Neck no lymphadenopathy, supple and no JVD Resp normal respiratory ef (more content not included)... Normal [facility] L501.4020on 10-07-2024 TROPONIN-I HS 18 pg/mL Normal 3.0-78.0 [facility] Comment on above: Order Comment: 'TROP ' Serial specimen #1, #2 or #3: 1 Result Comment: Plea se Note: New Test Units and Gender Specific Reference Ranges. For more information see Policy Stat Procedure Coleman High Sensitivity Troponin (TNIH) and attachments. Performed By: #### L 100.0100, L501.4020, L500.2500 #### [facility] [address] [place], [address] Cardiology Visit Reporton Cardiology Visit Report [facility] [address] [place] [address] OFFICE VISIT Date of Service: 08/20/24 MR#: [id number] Acct: [id number] Name: SHAGGY CASAS Rep #: [id number] : 1945 Provider: MARK Weber Age/Sex: 78/M Location: [facility] [place] Status: Signed HPI HPI History of Present Illness Details: Shaggy CASAS is a 78-year-old gentleman who presented to [facility] emergency room on 04/13/2024 with intermittent chest discomfort over the last 2 weeks. He did undergo a stress echocardiogram which was positive for ischemia. He then did undergo a diagnostic heart catheterization which demonstrated LAD 80% tubular mid lesion, RCA tubular 70% proximal lesion, tubular 99% mid lesion, tubular 80% distal lesion, collateral flow from LAD to RT LV???BR, circumflex 60% stenosis. Patient did undergo stenting of his RCA. It was recommended that if he continues to have chest pain he would then undergo stenting to his LAD. He does have a history of CLL and does follow with Dr. Jo at [facility]. He was in the ER in June for palpitations. Cardiac work up was negative. Nothing was noted. He has not had it since. He does not have any chest pain or SOB. He does not have any lightheadedness/diz ziness. He does have swelling. Intake Vital Signs 05/17/24 09:45 06/19/24 08:06 08/20/24 10:41 08/20/24 10:41 Height 5 ft 4 in 5 ft 4 in 5 ft 4 in 5 ft 4 in Weight: 141 lb BMI 24.2 BP 128/78 H Blood Pressure Location Lt brachial Position Sitting Respiration 18 Pulse 58 L Pulse Source Monitor Pulse Oximetry (%) 98 Intake Visit Reasons: 3 M [employer] Required: No Is patient in pain?: No Allergies No Known Allergies Allergy (Verified 08/20/24 10:41) Medications ???Medication ???Instructions ???Recorded ???Confirmed ???Type aspirin 81 mg tablet,delayed 81 mg PO BREAKFAST #90 tabs 05/12/24 08/20/24 Rx release atorvastatin 40 mg tablet 40 mg PO QHS #90 tabs 05/12/24 08/20/24 Rx clopidogrel 75 mg tablet (Plavix) 75 mg PO QDAY #90 tabs 05/12/24 08/20/24 Rx metoprolol tartrate 25 mg tablet 12.5 mg (1/2 x 25 mg) PO BID #90 05/12/24 08/20/24 Rx tabs Have you fallen in the past year?: No PFSH Medical History Hyperlipidemia SVT (supraventricular tachycardia) CLL (chronic lymphocytic leukemia) Urinary retention Left inguinal hernia Recurrent right inguinal hernia Arthritis Surgical History Status post coronary angioplasty (04/15/24) History of hernia repair ( 07/2018) History of nasal surgery Hx of bone graft Hx of right inguinal hernia repair Hx of appendectomy Family History Mother Breast cancer Social History household members: spouse housing: house Smoking Status: Never smoker second hand exposure: No alcohol intake: never substance use type: does not use caffeine: Yes what type of physical activity do you participate in: bicycling frequency: 5-6 times per week seatbelt use: always ROS Const Const: Negative for fatigue (Improved), weakness, headache(s), frequent falls, excessive sweating, weight gain or weight loss Eyes Eyes: Negative for blind spots, loss of peripheral vision, transient loss of vision, blurry vision, change in vision or double vision ENT ENT: Negative for headache(s), dizziness, tinnitus, Nosebleed/epistaxis or balance problems Cardio Chest Pain: No Palpitations: No Edema: None Muscle aches with walking: None Resp Respiratory: Negative for SOB with activity, SOB at rest, SOB orthopnea SOB lying down or Cough GI GI: Negative nausea, vomiting, heartburn, bloating, vomiting blood/hematemesis, bright, red blood in stools or black,tarry stools : Negative for hematuria Musc Musc: Negative for muscle aches/ myalgia, muscle weakness, joint pain or balance problems Skin Skin: Negative rash or wounds Neuro Neuro: Negative for dizziness, lightheadedness, near syncope, syncope, orthostatic symptoms, frequent falls, headache(s), weakness, confusion, memory loss, restless legs, blurry vision or double vision [place] Hematologic/Lymphat ic: Negative for easy bleeding or easy bruising Endo Endo: Negative for fatigue (Improved), cold intolerance, heat intolerance or excessive sweating Psych Psych: Negative for anxiety or depression Allergy Allergy/Immunology: Negative for rash Cardiology Exam Const Appearance: cooperative, no acute distress and well developed Orientation: alert, awake and oriented x3 Head Head: normocephalic and atraumatic Mouth: moist muco (more content not included)... Normal [facility] - Chemistry and C hemistry - challengeon 04-16-2024 Albumin [Mass/Vol] 3.2 g/dL Normal 3.2 - 5.0 g/dL [facility]; [facility] Work Phone: Albumin/Globulin [Mass ratio] 1.2 {ratio} Normal 0.9 - 2.4 {RATIO} [facility]; [facility]. Work Phone: ALT [Catalytic activity/Vol] 11 U/L Abnormal 16 - 61 U/L [facility]; [facility]. Work Phone: AST [Catalytic activity/Vol] 18 U/L Normal 15 - 37 U/L [facility]; [facility]. Work Phone: Bilirubin [Mass/Vol] 1.00 mg/dL Normal 0.20 - 1.00 mg/dL [facility]; [facility]. Work Phone: Chloride [Moles/Vol] 108 mmol/L Abnormal 98 - 10 7 mmol/L [facility]; [facility] Work Phone: CO2 [Moles/Vol] 24.0 mmol/L Normal 21.0 - 32.0 mmol/L [facility]; [facility] Work Phone: Creatinine [Mass/Vol] 0.84 mg/dL Normal 0.70 - 1.30 mg/dL [facility]; [facility] Work Phone: GFR/1.73 sq M.predicted among non-blacks MDRD (S/P/Bld) [Vol rate/Area] 95 mL/min/{1.73_m2} Normal [facility]; [facility] Work Phone: Globulin (S) [Mass/Vol] 2.6 g/dL Normal 2.2 - 4.2 g/dL [facility]; [facility] Work Phone: Glucose [Mass/Vol] 91 mg/dL Normal 74 - 106 mg/dL [facility]; [facility] Work Phone: Magnesium [Mass/Vol] 8.5 mg/dL Normal 8.5 - 1 0.1 mg/dL [facility]; [facility] Work Phone: Potassium [Moles/Vol] 3.9 mmol/L Normal 3.5 - 5.1 mmol/L [facility]; [facility] Work Phone: Sodium [Moles/Vol] 138 mmol/L Normal 136 - 145 mmol/L [facility]; [facility] Work Phone: Urea nitrogen [Mass/Vol] 16 mg/dL Normal 7 - 18 mg/dL [facility]; [facility] Work Phone: Laboratory - Hematology and Cell countson 04-16-2024 Erythrocyte distribution width (RBC) [Ratio] 15.1 % Abnormal 11.6 - 14.6 [facility]; [facility] Work Phone: Hematocrit (Bld) [Volume fraction] 42.3 % Normal 40 - 54 [facility]; [facility] Work Phone: Hemoglobin (Bld) [Mass/Vol] 13.6 g/dL Normal 13.0 - 16.5 g/dL [facility]; [facility] Work Phone: MCH (RBC) [Entitic mass] 31.9 pg Normal 27.0 - 32.0 pg [facility]; [facility] Work Phone: MCHC (RBC) [Mass/Vol] 32.2 g/dL Normal 32 - 36 g/dL [facility]; [facility] Work Phone: MCV (RBC) [Entitic vol] 99.3 fL Abnormal 80 - 94 fL [facility]; [facility] Work Phone: Platelet mean volume (Bld) [Entitic vol] 10.0 fL Normal 6.2 - 12.0 fL [facility]; [facility] Work Phone: Platelets (Bld) [#/Vol] 231 10*3/uL Normal 150 - 450 K/mm3 [facility]; [facility] Work Phone: RBC (Bld) [#/Vol] 4.26 10*6/uL Abnormal 4.6 - 6.2 {M/mm3} [facility]. Work Phone: WBC (Bld) [#/Vol] 59.0 10*3/uL Abnormal 4.4 - 11.0 K/mm3 [facility].; [facility]. Work Phone: No Panel Informationon 04-16 ALK P 59 U/L Normal 45 - 117 U/L [facility]; [facility]. Work Phone: BUN/CRE 19.2 {RATIO} Normal 10 - 20 {RATIO} [facility]; [facility]. Work Phone: ECRCL 62.65 ml/min Normal [facility]. Work Phone: EST GFR - AA 115 mL/min Normal [facility].; [facility]. Work Phone: GAP 6 Normal 5 - 15 [facility].; [facility]. Work Phone: PATH REV May foll Normal [facility].; [facility]. Work Phone: PATH REV Reviewed Normal [facility].; [facility]. Work Phone: RDW SD 54.4 fL Abnormal 35.1 - 43.9 fL [facility]; [facility] Work Phone: T PROT 5.8 g/dL Abnormal 6.4 - 8.2 g/dL [facility]; [facility] Work Phone: Laboratory - Chemistry and C hemistry - challengeon 04-15-2024 Chloride [Moles/Vol] 109 mmol/L Abnormal 98 - 10 7 mmol/L [facility]; [facility] Work Phone: CO2 [Moles/Vol] 27.0 mmol/L Normal 21.0 - 32.0 mmol/L [facility]; [facility] Work Phone: Creatinine [Mass/Vol] 0.82 mg/dL Normal 0.70 - 1.30 mg/dL [facility]; [facility] Work Phone: GFR/1.73 sq M.predicted among non-blacks MDRD (S/P/Bld) [Vol rate/Area] 97 mL/min/{1.73_m2} Normal [facility]; [facility] Work Phone: Glucose [Mass/Vol] 95 mg/dL Normal 74 - 106 mg/dL [facility]; [facility] Work Phone: Magnesium [Mass/Vol] 8.9 mg/dL Normal 8.5 - 1 0.1 mg/dL [facility]; [facility] Work Phone: Potassium [Moles/Vol] 4.6 mmol/L Normal 3.5 - 5.1 mmol/L [facility]; [facility] Work Phone: Sodium [Moles/Vol] 139 mmol/L Normal 136 - 145 mmol/L [facility]; [facility] Work Phone: Urea nitrogen [Mass/Vol] 16 mg/dL Normal 7 - 18 mg/dL [facility]; [facility] Work Phone: Laboratory - Hematology and Cell countson 04-15-2024 Basophils/100 WBC (Bld) 0.1 % Normal 0 - 1 [facility]; [facility] Work Phone: Eosinophils/100 WBC (Bld) 0.2 % Normal 0 - 5 [facility]; [facility] Work Phone: Erythrocyte distribution width (RBC) [Ratio] 15.1 % Abnormal 11.6 - 14.6 [facility]; [facility] Work Phone: Hematocrit (Bld) [Volume fraction] 41.1 % Normal 40 - 54 [facility]; [facility] Work Phone: Hemoglobin (Bld) [Mass/Vol] 13.2 g/dL Normal 13.0 - 16.5 g/dL [facility]; [facility] Work Phone: Lymphocytes/100 WBC (Bld) 89.9 % Abnormal 19 - 41 [facility]; [facility] Work Phone: MCH (RBC) [Entitic mass] 31.8 pg Normal 27.0 - 32.0 pg [facility]; [facility] Work Phone: MCHC (RBC) [Mass/Vol] 32.1 g/dL Normal 32 - 36 g/dL [facility]; [facility] Work Phone: MCV (RBC) [Entitic vol] 99.0 fL Abnormal 80 - 94 fL [facility]. Work Phone: Monocytes/100 WBC (Bld) 2.0 % Normal 0 - 10 [facility]. Work Phone: Neutrophils/100 WBC (Bld) 7.6 % Abnormal 47 - 70 [facility]; [facility]. Work Phone: Nucleated RBC (Bld) [#/Vol] 0 10*3/uL Normal 0 - 5 [facility]; [facility] Work Phone: Platelet mean volume (Bld) [Entitic vol] 9.7 fL Normal 6.2 - 12.0 fL [facility]; [facility]. Work Phone: Platelets (Bld) [#/Vol] 219 10*3/uL Normal 150 - 450 K/mm3 [facility]; [facility] Work Phone: RBC (Bld) [#/Vol] 4.15 10*6/uL Abnormal 4.6 - 6.2 {M/mm3} [facility]; [facility] Work Phone: WBC (Bld) [#/Vol] 57.7 10*3/uL Abnormal 4.4 - 11.0 K/mm3 [facility]; [facility] Work Phone: No Panel Informationon 04-15 Absolute Lymph 51.91 {X10_3/uL} Abnormal 0.83 - 4. 51 {X10_3/uL} [facility]; [facility]. Work Phone: Absolute Neut 4.3 {X10_3/uL} Normal 2.0 - 7.7 {X10_3/uL} [facility].; [facility]. Work Phone: ACTk CLOT TIME 214 {sec} Abnormal 74 - 137 {sec} [facility].; [facility]. Work Phone: ATYPICAL LYMPH 1+ Normal [facility].; [facility]. Work Phone: BUN/CRE 19.4 {RATIO} Normal 10 - 20 {RATIO} [facility].; [facility]. Work Phone: ECRCL 64.17 ml/min Normal [facility].; [facility], [facility]. Work Phone: EST GFR - AA 117 mL/min Normal [facility].; [facility]. Work Phone: GAP 3 Abnormal 5 - 15 [facility].; [facility], [facility]. Work Phone: IG% 0.200 Normal 0.0 - 0.9 [facility]; [facility]. Work Phone: PATH REV May foll Normal [facility].; [facility]. Work Phone: PATH REV Reviewed Normal [facility].; [facility] Work Phone: RDW SD 54.6 fL Abnormal 35.1 - 43.9 fL [facility]; [facility] Work Phone: REACTIVE LYMPH 1+ Normal [facility]; [facility] Work Phone: SMEAR COMMENT SCANNED Normal [facility]; [facility] Work Phone: Laboratory - Chemistry and C hemistry - challengeon 04-14-2024 Chloride [Moles/Vol] 108 mmol/L Abnormal 98 - 10 7 mmol/L [facility]; [facility] Work Phone: Cholesterol [Mass/Vol] 145 mg/dL Normal [facility]; [facility] Work Phone: Cholesterol in HDL [Mass/Vol] 35 mg/dL Abnormal [facility]; [facility] Work Phone: Cholesterol in LDL [Mass/Vol] 98 mg/dL Normal 0 - 130 mg/dL [facility]; [facility] Work Phone: Cholesterol in VLDL [Mass/Vol] 12 mg/dL Normal 5 - 40 mg/dL [facility]; [facility] Work Phone: CO2 [Moles/Vol] 27.0 mmol/L Normal 21.0 - 32.0 mmol/L [facility]; [facility] Work Phone: Creatinine [Mass/Vol] 0.79 mg/dL Normal 0.70 - 1.30 mg/dL [facility]; [facility] Work Phone: GFR/1.73 sq M.predicted among non-blacks MDRD (S/P/Bld) [Vol rate/Area] 101 mL/min/{1.73_m2} Normal [facility]; [facility] Work Phone: Glucose [Mass/Vol] 96 mg/dL Normal 74 - 106 mg/dL [facility]; [facility] Work Phone: Magnesium [Mass/Vol] 2.3 mg/dL Normal 1.6 - 2 .6 mg/dL [facility]; [facility] Work Phone: Magnesium [Mass/Vol] 8.2 mg/dL Abnormal 8.5 - 1 0.1 mg/dL [facility]; [facility] Work Phone: Potassium [Moles/Vol] 4.8 mmol/L Normal 3.5 - 5.1 mmol/L [facility]; [facility] Work Phone: Sodium [Moles/Vol] 138 mmol/L Normal 136 - 145 mmol/L [facility]; [facility] Work Phone: Triglyceride [Mass/Vol] 58 mg/dL Normal [facility] Work Phone: Urea nitrogen [Mass/Vol] 16 mg/dL Normal 7 - 18 mg/dL [facility]; [facility] Work Phone: Laboratory - Hematology and Cell countson 04-14-2024 Basophils/100 WBC (Bld) 0.4 % Normal 0 - 1 [facility].; [facility] Work Phone: Eosinophils/100 WBC (Bld) 0.3 % Normal 0 - 5 [facility]; [facility]. Work Phone: Erythrocyte distribution width (RBC) [Ratio] 15.2 % Abnormal 11.6 - 14.6 [facility]; [facility] Work Phone: Hematocrit (Bld) [Volume fraction] 40.5 % Normal 40 - 54 [facility]; [facility]. Work Phone: Hemoglobin (Bld) [Mass/Vol] 13.0 g/dL Normal 13.0 - 16.5 g/dL [facility]; [facility] Work Phone: Lymphocytes/100 WBC (Bld) 90.1 % Abnormal 19 - 41 [facility]; [facility] [facility]. Work Phone: MCH (RBC) [Entitic mass] 32.1 pg Abnormal 27.0 - 32.0 pg [facility]; [facility]. Work Phone: MCHC (RBC) [Mass/Vol] 32.1 g/dL Normal 32 - 36 g/dL [facility].; [facility]. Work Phone: MCV (RBC) [Entitic vol] 100.0 fL Abnormal 80 - 94 fL [facility].; [facility]. Work Phone: Monocytes/100 WBC (Bld) 2.1 % Normal 0 - 10 [facility].; [facility]. Work Phone: Neutrophils/100 WBC (Bld) 7.0 % Abnormal 47 - 70 [facility]; [facility] Work Phone: Nucleated RBC (Bld) [#/Vol] 0 10*3/uL Normal 0 - 5 [facility]; [facility] Work Phone: Platelet mean volume (Bld) [Entitic vol] 9.6 fL Normal 6.2 - 12.0 fL [facility]; [facility] Work Phone: Platelets (Bld) [#/Vol] 211 10*3/uL Normal 150 - 450 K/mm3 [facility]; [facility] Work Phone: RBC (Bld) [#/Vol] 4.05 10*6/uL Abnormal 4.6 - 6.2 {M/mm3} [facility]; [facility] Work Phone: WBC (Bld) [#/Vol] 54.4 10*3/uL Abnormal 4.4 - 11.0 K/mm3 [facility]; [facility] Work Phone: No Panel Informationon 04-14 Absolute Lymph 49.05 {X10_3/uL} Abnormal 0.83 - 4. 51 {X10_3/uL} [facility]; [facility] Work Phone: Absolute Neut 3.8 {X10_3/uL} Normal 2.0 - 7.7 {X10_3/uL} [facility]; [facility] Work Phone: BUN/CRE 20.2 {RATIO} Abnormal 10 - 20 {RATIO} [facility]; [facility]. Work Phone: ECRCL 65.78 ml/min Normal [facility].; [facility]. Work Phone: EST GFR - AA 122 mL/min Normal [facility].; [facility]. Work Phone: GAP 3 Abnormal 5 - 15 [facility].; [facility]. Work Phone: IG% 0.100 Normal 0.0 - 0.9 [facility].; [facility]. Work Phone: PATH REV May foll Normal [facility].; [facility]. Work Phone: PATH REV Reviewed Normal [facility].; [facility]. Work Phone: RDW SD 55.9 fL Abnormal 35.1 - 43.9 fL [facility].; [facility]. Work Phone: SMEAR COMMENT Normal [facility].; [facility]. Work Phone: TSH 2.780 {uIU/mL} Normal 0.358 - 3.740 {uIU/mL} [facility].; [facility]. Work Phone: CBC W Auto Diff Bldon 2023 Basophils (Bld) [#/Vol] 0.00 10*3/uL Normal [facility].; [facility]. Work Phone: Comment on above: Order Comment: Speci men Type: BLOOD SPECIMEN Ordering Facility: [facility] Address: [address] [place] [address] Performed By: #### 5 7021-8 #### [facility] CLIA [id number] [address] [place] [address] [place] [facility] CLIA [id number] [address] [place], [place] [address] [place] [address] [place] Basophils/100 WBC (Bld) 0.0 % Normal E [facility] Work Phone: Comment on above: Order Comment: Speci men Type: BLOOD SPECIMEN Ordering Facility: [facility] Address: [address] [place] [address] Performed By: #### 5 7021-8 #### [facility] CLIA [id number] [address] [place] [address] [place] [facility] CLIA [id number] [address] [place] [address] [place] Eosinophils (Bld) [#/Vol] 0.00 10*3/uL Normal [facility] [employer] [facility].; [facility] Hospital[facility] Work Phone: Comment on above: Order Comment: Speci men Type: BLOOD SPECIMEN Ordering Facility: [facility] Address: [address] [place] [address] Performed By: #### 5 7021-8 #### [facility] CLIA [id number] [address] [place] [address] [place] [facility] CLIA [id number] [address] [place], [place] [address] [place] [address] [place] Eosinophils/100 WBC (Bld) 0.0 % Normal [facility] [employer] [facility] [employer] [facility] [employer] [facility] Work Phone: Comment on above: Order Comment: Speci men Type: BLOOD SPECIMEN Ordering Facility: [facility] Address: [address] [place] [address] Performed By: #### 5 7021-8 #### [facility] CLIA [id number] [address] [place] [address] [place] [facility] CLIA [id number] [address] [place] [address] [place] Erythrocyte distribution width (RBC) [Ratio] 15.1 % Abnormal 11.5 - 15.0 % [facility], [facility].; [facility], [facility]. Work Phone: Comment on above: Order Comment: Speci men Type: BLOOD SPECIMEN Ordering Facility: [facility] Address: [address] [place] [address] Performed By: #### 5 7021-8 #### [facility] CLIA [id number] [address] [place] [address] [place] [facility] CLIA [id number] [address] [place] [address] [place] Hematocrit (Bld) [Volume fraction] 40.1 % Normal 39.0 - 51.0 % [facility], [facility].; [facility], [facility] Work Phone: Comment on above: Order Comment: Speci men Type: BLOOD SPECIMEN Ordering Facility: [facility] Address: [address] [place] [address] Performed By: #### 5 7021-8 #### [facility] CLIA [id number] [address] [place] [address] [place] [facility] CLIA [id number] [address] [place] [address] [place] Hemoglobin (Bld) [Mass/Vol] 13.2 g/dL Normal 13.0 - 17.0 g/dL [facility] Center[facility].; [facility]ENTERflip[facility] [place] [employer] [facility], Inc. Work Phone: Comment on above: Order Comment: Speci men Type: BLOOD SPECIMEN Ordering Facility: [facility] Address: [address] [place] [address] Performed By: #### 5 7021-8 #### [facility] CLIA [id number] [address] [place] [address] [place] [facility] CLIA [id number] [address] [place] [address] [place] Lymphocytes (Bld) [#/Vol] 53.36 10*3/uL Abnormal 1.00 - 4.00 10*3/uL [facility], [employer].; [facility], Inc. Work Phone: Comment on above: Order Comment: Speci men Type: BLOOD SPECIMEN Ordering Facility: [facility] Address: [address] [place] [address] Performed By: #### 5 7021-8 #### [facility] CLIA [id number] [address] [place] [address] [place] [facility] CLIA [id number] [address] [place] [address] [place] Lymphocytes/100 WBC (Bld) 91.0 % Normal [facility], [employer].; [facility], Inc. Work Phone: Comment on above: Order Comment: Speci men Type: BLOOD SPECIMEN Ordering Facility: [facility] Address: [address] [place] [address] Performed By: #### 5 7021-8 #### [facility] CLIA [id number] [address] [place] [address] [place] [facility] CLIA [id number] [address] [place], [place] [id number] [place] MCH (RBC) [Entitic mass] 32.3 pg Normal 26.0 - 34.0 pg [facility] Center[facility].; [facility]. Work Phone: Comment on above: Order Comment: Speci men Type: BLOOD SPECIMEN Ordering Facility: [facility] Address: [address] [place] [address] Performed By: #### 5 7021-8 #### [facility] CLIA [id number] [address] [place] [facility] CLIA [id number] [address] [place] [address] [place] MCHC (RBC) [Mass/Vol] 32.9 g/dL Normal 30.5 - 36.0 g/dL [facility].; [facility], [employer]. Work Phone: Comment on above: Order Comment: Speci men Type: BLOOD SPECIMEN Ordering Facility: [facility] Address: [address] [place] [address] Performed By: #### 5 7021-8 #### [facility] CLIA [id number] [address] [place] [address] [place] [facility] CLIA [id number] [address] [place] [address] [place] MCV (RBC) [Entitic vol] 98.0 fL Normal 80.0 - 100.0 fL [facility] Center[facility].; [facility]. Work Phone: Comment on above: Order Comment: Speci men Type: BLOOD SPECIMEN Ordering Facility: [facility] Address: [address] [place] [address] Performed By: #### 5 7021-8 #### [facility] CLIA [id number] [address] [place] [address] [place] [facility] CLIA [id number] [address] [place] [address] [place] Monocytes (Bld) [#/Vol] 0.00 10*3/uL Normal [facility], [employer].; [facility]. Work Phone: Comment on above: Order Comment: Speci men Type: BLOOD SPECIMEN Ordering Facility: [facility] Address: [address] [place] [address] Performed By: #### 5 7021-8 #### [facility] CLIA [id number] [address] [place] [address] [place] [facility] CLIA [id number] [address] [place] [address] [place] Monocytes/100 WBC (Bld) 0.0 % Normal E [facility] [employer] [facility].; [facility], Inc. Work Phone: Comment on above: Order Comment: Speci men Type: BLOOD SPECIMEN Ordering Facility: [facility] Address: [address] [place] [address] Performed By: #### 5 7021-8 #### [facility] CLIA [id number] [address] [place] [address] [place] [facility] CLIA [id number] [address] [place] [address] [place] Neutrophils (Bld) [#/Vol] 5.28 10*3/uL Normal 1.45 - 7.50 10*3/uL [facility] [employer] [facility], [employer].; [facility] [employer] [facility] [employer]. Work Phone: Comment on above: Order Comment: Speci men Type: BLOOD SPECIMEN Ordering Facility: [facility] Address: [address] [place] [address] Performed By: #### 5 7021-8 #### [facility] CLIA [id number] [address] [place] [address] [place] [facility] CLIA [id number] [address] [place] [address] [place] Neutrophils/100 WBC (Bld) 9.0 % Normal [facility] Center[facility].; [facility]. Work Phone: Comment on above: Order Comment: Speci men Type: BLOOD SPECIMEN Ordering Facility: [facility] Address: [address] [place] [address] Performed By: #### 5 7021-8 #### [facility] CLIA [id number] [address] [place] [address] [place] [facility] CLIA [id number] [address] [place] [address] [place] Platelet mean volume (Bld) [Entitic vol] 9.5 fL Normal 9.0 - 12.7 fL [facility] [employer].; [facility], Inc. Work Phone: Comment on above: Order Comment: Speci men Type: BLOOD SPECIMEN Ordering Facility: [facility] Address: [address] [place] [address] Performed By: #### 5 7021-8 #### [facility] CLIA [id number] [address] [place] [address] [place] [facility] CLIA [id number] [address] [place] [address] [place] Platelets (Bld) [#/Vol] 261 10*3/uL Normal 150 - 400 10*3/uL [facility] [employer].; [facility]. Work Phone: Comment on above: Order Comment: Speci men Type: BLOOD SPECIMEN Ordering Facility: [facility] Address: [address] [place] [address] Result Comment: No c lot detected. Performed By: #### 5 7021-8 #### [facility] CLIA [id number] [address] [place] [address] [place] [facility] CLIA [id number] [address] [place] [address] [place] RBC (Bld) [#/Vol] 4.09 10*6/uL Abnormal 4.20 - 6.0 0 m/uL [facility], [facility].; [facility]. Work Phone: Comment on above: Order Comment: Speci men Type: BLOOD SPECIMEN Ordering Facility: [facility] Address: [address] [place] [address] Performed By: #### 5 7021-8 #### [facility] CLIA [id number] [address] [place] [address] [place] [facility] CLIA [id number] [address] [place] [address] [place] RED CELL MORPH Reviewed: see results of individual morphologies Normal [facility].; [facility], [facility]. Work Phone: Comment on above: Order Comment: Speci men Type: BLOOD SPECIMEN Ordering Facility: [facility] Address: [address] [place] [address] Performed By: #### 5 7021-8 #### [facility] CLIA [id number] [address] [place] [address] [place] [facility] CLIA [id number] [address] [place] [address] [place] WBC (Bld) [#/Vol] 58.64 10*3/uL Abnormal 3.70 - 11 .00 10*3/uL [facility].; [facility]. Work Phone: Comment on above: Order Comment: Speci men Type: BLOOD SPECIMEN Ordering Facility: [facility] Address: [address] [place] [address] Performed By: #### 5 7021-8 #### [facility] CLIA [id number] [address] [place] [address] [place] [facility] CLIA [id number] [address] [place] [address] [place] CBC W Auto Differential pane l (Bld)on 04-13-2024 Differential cell count method Nom (Bld) Manual Normal [facility] Comment on above: Order Comment: Speci men Type: BLOOD SPECIMEN Ordering Facility: [facility] Address: [address] [place] [address] Performed By: #### 5 7021-8 #### [facility] CLIA [id number] [address] [place] [address] [place] [facility] CLIA [id number] [address] [place] [address] [place] Giant platelets LM Ql (Bld) Occasional Normal [facility] Comment on above: Order Comment: Speci men Type: BLOOD SPECIMEN Ordering Facility: [facility] Address: [address] [place] [address] Performed By: #### 5 7021-8 #### [facility] CLIA [id number] [address] [place] [address] [place] [facility] CLIA [id number] [address] [place] [address] [place] Nucleated RBC (Bld) [#/Vol] 10*3/uL Normal <0.01 [facility] Comment on above: Order Comment: Speci men Type: BLOOD SPECIMEN Ordering Facility: [facility] Address: [address] [place] [id number] Performed By: #### 5 7021-8 #### [facility] CLIA [id number] [address] [place] [address] [place] [facility] CLIA [id number] [address] [place] [id number] [place] Nucleated RBC/100 WBC (Bld) [Ratio] 0.0 /100 WBC Normal [facility] Comment on above: Order Comment: Speci men Type: BLOOD SPECIMEN Ordering Facility: [facility] Address: [address] [place] [address] Performed By: #### 5 7021-8 #### [facility] CLIA [id number] [address] [place] [address] [place] [facility] CLIA [id number] [address] [place] [address] [place] Ovalocytes LM Ql (Bld) Few Normal [facility] Comment on above: Order Comment: Speci men Type: BLOOD SPECIMEN Ordering Facility: [facility] Address: [facility] [place] [address] Performed By: #### 5 7021-8 #### [facility] CLIA [id number] [address] [place] [address] [place] [facility] CLIA [id number] [address] [place] [address] [place] Platelets Estimate (Bld) [#/Vol] Adequate Normal [facility] Comment on above: Order Comment: Speci men Type: BLOOD SPECIMEN Ordering Facility: [facility] Address: [address] [place] [address] Performed By: #### 5 7021-8 #### [facility] CLIA [id number] [address] [place] [address] [place] [facility] CLIA [id number] [address] [place] [id number] [place] CNOVSPon 04-13-2024 CNOVSP Visit (SP) Office (MARIKA) ---- SHAGGY CASAS ([id number]) 1945 M Date Time Provider Department 04/13/24 1:30 PM TOSHIA BOOKER During your visit today, we recorded the following information about you: Temperature Pulse Blood pressure Weight 97.2 degrees 64/minute 117/71 63.2 kg Toshia Booker APRN.DRY SAND MOLDER 04/14/2024 8:47 AM Signed Chief Complaint Patient presents with: Established Patient HPI: Shaggy Casas is a 78 year old male who presents here today for follow up CLL. Per Dr. Jo's previous note: H/o hernia repair. He was found to have lymphocytosis. He was referred to Dr. Gaming who confirmed his diagnosis of CLL. He had no painful adenopathy, early satiety, hepatosplenomegaly, anemia or thrombocytopenia. He denies fever, chills, night sweat, fatigue or weight loss. He has no family history of leukemia or lymphoma. He does not smoke tobacco or drink alcohol. I've been having chest pain on and off for the past two weeks. I have taken my heart rate and I feel like I'm skipping beats. Appetite:Good. Energy level:Good. Denies fevers or recent illness. Resp:denies cough or sob Cardiac:+chest pain, denies palpitations/neck/a rm pain GI:denies abd pain, n/v, moving bowels reguarly :denies dysuria/hematuria Extrem:denies pain Neuro:denies symptoms of neuropathy Skin:denies rashes Heme:denies bleeding The ROS is otherwise negative. Past medical history, appointments, medications, allergies reviewed. No changes. EXAM: BP 117/71 Pulse 64 Temp 36.2 ?C (97.2 ?F) (Temporal) Wt 63.2 kg (139 lb 5.3 oz) SpO2 98% BMI 24.68 kg/m? APPEARANCE Well appearing, alert, in no acute distress, well-hydrated, well nourished. HEART irreg, no murmurs LUNG clear to auscultation LYMPH NODES No cervical lymphadenopathy, No supraclavicular lymphadenopathy, and No axillary lymphadenopathy. ABDOMEN bowel sounds normoactive, soft, non-tender EXTREMITIES No edema NEURO Awake, alert and oriented x 3, Normal gait, and No involuntary motions. SKIN Skin color, texture, turgor normal, no suspicious rashes or lesions LABS: Latest Ref Rng 02/25/2022 03/27/2023 09/26/2023 04/13/2024 WBC 3.70 - 11.00 k/uL 63.17 (H) 65.67 (H) 67.58 (H) 58.64 (H) (P) RBC 4.20 - 6.00 m/uL 4.05 (L) 4.46 4.37 4.09 (L) (P) Hemoglobin 13.0 - 17.0 g/dL 13.1 14.1 13.9 13.2 (P) Hematocrit 39.0 - 51.0 % 40.0 43.5 42.6 40.1 (P) MCV 80.0 - 100.0 fL 98.8 97.5 97.5 98.0 (P) MCH 26.0 - 34.0 pg 32.3 31.6 31.8 32.3 (P) MCHC 30.5 - 36.0 g/dL 32.8 32.4 32.6 32.9 (P) RDW-CV 11.5 - 15.0 % 14.9 14.6 15.0 15.1 (H) (P) Platelet Count 150 - 400 k/uL 248 234 287 261 (P) MPV 9.0 - 12.7 fL 9.0 9.6 9.2 9.5 (P) NRBC /100 WBC 0.0 0.0 0.0 Absolute nRBC <0.01 k/uL <0.01 <0.01 <0.01 Neut% % 10.0 12.0 8.4 Abs Neut (ANC) 1.45 - 7.50 k/uL 6.32 7.88 (H) 5.63 Lymph% % 89.0 88.0 90.4 Abs Lymph 1.00 - 4.00 k/uL 56.22 (H) 57.79 (H) 61.11 (H) Tift% % 1.0 0.0 0.8 Abs Tift <0.87 k/uL 0.63 0.00 0.53 Eosin% % 0.0 0.0 0.1 Abs Eosin <0.46 k/uL 0.00 0.00 0.10 Baso% % 0.0 0.0 0.1 Abs Baso <0.11 k/uL 0.00 0.00 0.06 Platelet Estimate Adequate Adequate Red Cell Morph Reviewed: unremarkable Reviewed: unremarkable DTYPE Manual Manual Auto Immature Gran % % 0.2 IMMATURE GRANS (ABS) <0.10 k/uL 0.15 (H) (P) Preliminary today. ASSESSMENT/PLAN: 1. CLL (chronic lymphocytic leukemia) (HCC) - ICD9: 204.10, ICD10: C91.10 URIOSTEGUI stage 0 chronic lymphocytic leukemia (CD5 positive, CD23 positive CD38 negative with Light chain restriction) Asymptomatic. - No concerning findings on exam. - Reviewed prelim. CBC with pt. - Continue follow up with DERM and PCP for routine care. - Advised pt. to go to ED now for chest pain/irreg heart rate. - Follow up in 6 months with CBC/diff pending final lab today. - Pt. aware to call office with any questions/concerns. The patient indicates understanding of these issues and agrees with the plan. All documentation from previous visit of 09/26/23-Drs. Cancino/Deysi was copied and pasted, documentation has been reviewed and edited as necessary for today's visit. Toshia Booker APRN.CNP Referring Provider: TOSHIA BOOKER [[id number]] Allergies As of Date: 04/13/2024 (No Known Allergies) Date Reviewed: 04/13/2024 Reviewed by: Toshia Booker APRN.CNP - Fully Assessed Reason for Visit: Established Patient [175] Primary Visit Diagnosis:CLL (chronic lymphocytic leukemia) ([facility]) [C91.10] Follow-up and Disposition History for Encounter Date Provider Department Center 04/13/2024 [id number], DARBY HEMAWS [place] Prescriptions as of 04/14/2024 - MEDICATION, NON-DATABASE For life transfer factor Problem List As Of Date 04/13/2024 Noted Resolved CLL (chronic lymphocytic leukemia) (HCC) [C91.1*08/15/2020 Encounter Status:Closed by TOSHIA BOOKER on 04/14/24 Normal [facility] No Panel Informationon 04-13 Differential method Bld Manual Normal E [facility].; [facility]. Work Phone: Giant Platelets Bld Ql Smear Occasional Normal [facility].; [facility], [facility]. Work Phone: nRBC # Bld Auto <0.01 Normal [facility].; [facility]. Work Phone: nRBC/100 WBC Bld-Rto 0.0 {/100_WBC} Normal [facility].; [facility]. Work Phone: Ovalocytes Bld Ql Smear Few Normal [facility].; [facility], [employer]. Work Phone: Performing Lab See Note Normal [facility].; [facility], [employer]. Work Phone: Platelet # Bld Est Adequate Normal [facility].; [facility]. Work Phone: TROPONIN-I HS 77 pg/mL Normal 3.0 - 78.0 pg/mL [facility] [facility]. Work Phone: Laboratory - Chemistry and C hemistry - challengeon 09-26-2023 Albumin [Mass/Vol] 4.0 g/dL Normal 3.9 - 4.9 g/dL [facility]; [facility]. Work Phone: ALP [Catalytic activity/Vol] 73 U/L Normal 38 - 113 U/L [facility]; [facility]. Work Phone: ALT [Catalytic activity/Vol] 8 U/L Abnormal 10 - 54 U/L [facility]; [facility]. Work Phone: Anion gap [Moles/Vol] 9 mmol/L Normal 9 - 18 mmol/L [facility]; [facility]. Work Phone: AST [Catalytic activity/Vol] 12 U/L Abnormal 14 - 40 U/L [facility]; [facility] Work Phone: Bilirubin [Mass/Vol] 0.6 mg/dL Normal 0.2 - 1 .3 mg/dL [facility]; [facility] Work Phone: Calcium [Mass/Vol] 9.0 mg/dL Normal 8.5 - 10. 2 mg/dL [facility]; [facility] Work Phone: Chloride [Moles/Vol] 103 mmol/L Normal 97 - 10 5 mmol/L [facility]; [facility] Work Phone: CO2 [Moles/Vol] 25 mmol/L Normal 22 - 30 mmol/L [facility]; [facility] Work Phone: Creatinine [Mass/Vol] 1.00 mg/dL Normal 0.73 - 1.22 mg/dL [facility]; [facility] Work Phone: Glucose [Mass/Vol] 155 mg/dL Abnormal 74 - 99 mg/dL [facility]; [facility] Work Phone: LDH [Catalytic activity/Vol] 143 U/L Normal 135 - 225 U/L [facility]; [facility] Work Phone: Potassium [Moles/Vol] 4.2 mmol/L Normal 3.7 - 5.1 mmol/L [facility]; [facility] Work Phone: Protein [Mass/Vol] 6.1 g/dL Abnormal 6.3 - 8.0 g/dL [facility]; [facility] Work Phone: Sodium [Moles/Vol] 137 mmol/L Normal 136 - 144 mmol/L [facility]; [facility] Work Phone: Urea nitrogen [Mass/Vol] 23 mg/dL Normal 9 - 24 mg/dL [facility]; [facility] Work Phone: Laboratory - Hematology and Cell countson 09-26-2023 Basophils (Bld) [#/Vol] 0.06 10*3/uL Normal [facility]; [facility] Work Phone: Basophils/100 WBC (Bld) 0.1 % Normal [facility]; [facility] Work Phone: Eosinophils (Bld) [#/Vol] 0.10 10*3/uL Normal [facility]; [facility] Work Phone: Eosinophils/100 WBC (Bld) 0.1 % Normal [facility]; [facility] Work Phone: Erythrocyte distribution width (RBC) [Ratio] 15.0 % Normal 11.5 - 15.0 % [facility]; [facility] Work Phone: Hematocrit (Bld) [Volume fraction] 42.6 % Normal 39.0 - 51.0 % [facility]; [facility] Work Phone: Hemoglobin (Bld) [Mass/Vol] 13.9 g/dL Normal 13.0 - 17.0 g/dL [facility]; [facility] Work Phone: Lymphocytes (Bld) [#/Vol] 61.11 10*3/uL Abnormal 1.00 - 4.00 10*3/uL [facility]; [facility] Work Phone: Lymphocytes/100 WBC (Bld) 90.4 % Normal [facility]; [facility] Work Phone: MCH (RBC) [Entitic mass] 31.8 pg Normal 26.0 - 34.0 pg [facility]; [facility] Work Phone: MCHC (RBC) [Mass/Vol] 32.6 g/dL Normal 30.5 - 36.0 g/dL [facility]; [facility] Work Phone: MCV (RBC) [Entitic vol] 97.5 fL Normal 80.0 - 100.0 fL [facility]; [facility] Work Phone: Monocytes (Bld) [#/Vol] 0.53 10*3/uL Normal [facility]; [facility] Work Phone: Monocytes/100 WBC (Bld) 0.8 % Normal [facility]; [facility] Work Phone: Neutrophils (Bld) [#/Vol] 5.63 10*3/uL Normal 1.45 - 7.50 10*3/uL [facility] Work Phone: Neutrophils/100 WBC (Bld) 8.4 % Normal [facility]; [facility] Work Phone: Platelet mean volume (Bld) [Entitic vol] 9.2 fL Normal 9.0 - 12.7 fL [facility]; [facility] Work Phone: Platelets (Bld) [#/Vol] 287 10*3/uL Normal 150 - 400 10*3/uL [facility]; [facility] Work Phone: RBC (Bld) [#/Vol] 4.37 10*6/uL Normal 4.20 - 6.0 0 m/uL [facility]; [facility] Work Phone: WBC (Bld) [#/Vol] 67.58 10*3/uL Abnormal 3.70 - 11 .00 10*3/uL [facility]; [facility]. Work Phone: No Panel Informationon 09-26 Creatinine + eGFR Pnl SerPlBld 78 {mL/min/1.73m???} Normal [facility]; [facility]. Work Phone: Differential method Bld Auto Normal [facility]; [facility]. Work Phone: Imm Granulocytes # Bld Auto 0.15 10*3/uL Abnormal [facility]; [facility]. Work Phone: Imm Granulocytes/leuk NFr Bld Auto 0.2 % Normal [facility]; [facility]. Work Phone: nRBC # Bld Auto <0.01 Normal [facility]; [facility]. Work Phone: nRBC/100 WBC Bld-Rto 0.0 {/100_WBC} Normal [facility]; [facility] Work Phone: Performing Lab See Note Normal [facility]; [facility] Work Phone: Laboratory - Chemistry and C hemistry - challengeon 08-21-2021 Albumin BCP dye [Mass/Vol] 3.8 g/dL Normal 3.2 - 4.8 g/dL [facility]; . Albumin/Globulin [Mass ratio] 1.7 {ratio} Abnormal 0.9 - 1.6 {ratio} [facility]; [facility]. ALP [Catalytic activity/Vol] 82 U/L Normal 38 - 126 U/L [facility]; [facility], [facility]. ALT No additional P-5'-P [Catalytic activity/Vol] 8 U/L Abnormal 12 - 55 U/L [facility], [facility]. ALT With P-5'-P [Catalytic activity/Vol] 8 U/L Abnormal 12 - 55 U/L [facility]; AST [Catalytic activity/Vol] 11 U/L Normal 8 - 34 U/L [facility]; AST With P-5'-P [Catalytic activity/Vol] 11 U/L Normal 8 - 34 U/L [facility]; Bilirubin [Mass/Vol] 0.60 mg/dL Normal 0.20 - 1.20 mg/dL [facility]; Calcium [Mass/Vol] 9.4 mg/dL Normal 8.7 - 10. 4 mg/dL [facility]; Chloride [Moles/Vol] 107 mmol/L Normal 98 - 11 0 meq/L [facility]; Cholesterol [Mass/Vol] 148 mg/dL Normal 50 - 199 mg/dL [facility]; Cholesterol in HDL [Mass/Vol] 36 mg/dL Abnormal 40 - 59 mg/dL [facility]; Cholesterol in LDL [Mass/Vol] 100 mg/dL Normal 0 - 129 mg/dL [facility]; CO2 [Moles/Vol] 27 mmol/L Normal 22 - 32 meq/L [facility]; Creatinine [Mass/Vol] 0.83 mg/dL Normal 0.60 - 1.40 mg/dL [facility]; GFR/1.73 sq M.predicted among blacks MDRD (S/P/Bld) [Vol rate/Area] mL/min/{1.73_m2} Normal [facility]; [facility]ENTERJelas MarketingTr[facility] Work Phone: GFR/1.73 sq M.predicted among non-blacks MDRD (S/P/Bld) [Vol rate/Area] mL/min/{1.73_m2} Normal [facility]; [facility] Work Phone: Globulin (S) [Mass/Vol] 2.2 g/dL Normal 1.5 - 3.8 g/dL [facility]; Glucose [Mass/Vol] 97 mg/dL Normal 82 - 115 mg/dL [facility]; Iron [Mass/Vol] 51 ug/dL Abnormal 65 - 175 ug/dL [facility]; Potassium [Moles/Vol] 4.1 mmol/L Normal 3.5 - 5.0 meq/L [facility]; [facility] Prostate specific Ag [Mass/Vol] 3.09 ng/mL Normal 0.02 - 4.00 ng/mL [facility]; [facility] Protein [Mass/Vol] 6.0 g/dL Normal 5.7 - 8.2 g/dL [facility]; [facility] Sodium [Moles/Vol] 137 mmol/L Normal 136 - 145 meq/L [facility]; Triglyceride [Mass/Vol] 58 mg/dL Normal 3 - 149 mg/d L [facility]; TSH Qn 2.568 m[IU]/L Normal 0.550 - 4.780 m[iU]/mL [facility]; Urea nitrogen [Mass/Vol] 21.0 mg/dL Normal 8.0 - 22.0 mg/dL [facility]; [facility] Urea nitrogen/Creatinine [Mass ratio] 25.3 {ratio} Abnormal 10.0 - 22.0 {ratio} [facility].; Laboratory - Hematology and Cell countson 08-21-2021 Basophils (Bld) [#/Vol] 0.00 {10^3/mcL} Normal 0 .00 - 0.27 {10^3/mcL} [facility].; [facility] Work Phone: Basophils/100 WBC (Bld) 0.0 % Normal 0.0 - 2.5 % [facility].; [facility], [facility] Work Phone: Cells Counted Total (Unsp spec) [#] 200 Normal [facility]; [facility] Work Phone: Eosinophils (Bld) [#/Vol] 0.00 {10^3/mcL} Normal 0.00 - 0.65 {10^3/mcL} [facility].; [facility], [facility] Work Phone: Eosinophils/100 WBC (Bld) 0.0 % Normal 0.0 - 6.0 % [facility]; [facility] Work Phone: Erythrocyte distribution width (RBC) [Ratio] 14.2 % Normal 11.5 - 15.5 % [facility].; Hematocrit (Bld) [Volume fraction] 40.4 % Normal 40.0 - 52.0 % [facility]; [facility], [facility] Hemoglobin (Bld) [Mass/Vol] 13.7 g/dL Normal 13.0 - 17.5 g/dL [facility].; [facility], [facility] Lymphocytes (Bld) [#/Vol] 49.48 {10^3/mcL} Abnormal 0.90 - 4.32 {10^3/mcL} [facility]; [facility] Work Phone: Lymphocytes/100 WBC (Bld) 84.0 % Abnormal 20.0 - 40.0 % [facility]; [facility] Work Phone: Macrocytes Ql (Bld) Slight-SLIGHT Normal [facility]; [facility] Work Phone: MCH (RBC) [Entitic mass] 33.5 pg Abnormal 27.0 - 33.0 pg [facility]; MCHC (RBC) [Mass/Vol] 34.0 g/dL Normal 32.0 - 36.0 g/dL [facility]; MCV (RBC) [Entitic vol] 98.4 fL Normal 81.0 - 100.0 fL [facility]; Monocytes (Bld) [#/Vol] 1.47 {10^3/mcL} Abnormal 0 .09 - 1.40 {10^3/mcL} [facility]; [facility] Work Phone: Monocytes/100 WBC (Bld) 2.5 % Normal 2.0 - 13.0 % [facility]; [facility] Work Phone: Neutrophils (Bld) [#/Vol] 7.95 {10^3/mcL} Normal 2.25 - 8.10 {10^3/mcL} [facility]; [facility] Work Phone: Neutrophils/100 WBC (Bld) 13.5 % Abnormal 50.0 - 75.0 % [facility]; [facility] Work Phone: Platelet mean volume (Bld) [Entitic vol] 8.2 fL Normal 6.4 - 10.5 fL [facility] [employer] [facility].; [employer] [facility] [employer] [facility]. Platelets (Bld) [#/Vol] 301 {10^3/mcL} Normal 15 0 - 450 {10^3/mcL} [facility] [employer] [facility].; [facility] [employer] [facility], [employer]. Platelets LM Ql (Bld) Normal-NORMAL Normal [facility]; [facility] [employer] [facility]. Work Phone: RBC (Bld) [#/Vol] 4.10 {10^6/mcL} Abnormal 4.50 - 6.00 {10^6/mcL} [facility] [employer] [facility].; [employer] [facility], [employer]. WBC (Bld) [#/Vol] 58.90 {10^3/mcL} Abnormal 4.50 - 10.80 {10^3/mcL} [facility] [employer] [facility].; [employer] [facility] [employer] [facility]. No Panel Informationon 08-21 Differential Comment See Below-SEE BELOW Normal [facility] [employer] [facility] Health[facility]; [facility] [employer] [facility] Health[facility] Work Phone: Electrolyte Balance 3.0 meq/L Abnormal 4.0 - 15 .0 meq/L [facility] [employer] [facility]; [facility] [employer] [facility] [employer]. Laboratory - Chemistry and C hemistry - challengeon 07-28-2019 Albumin BCP dye [Mass/Vol] 3.9 g/dL Normal 3.2 - 4.8 g/dL [facility] [employer] [facility].; [employer] [facility] Albumin/Globulin [Mass ratio] 1.5 {ratio} Normal 0.9 - 1.6 {ratio} [facility] [employer].; [employer] [facility] [employer] [facility] ALP [Catalytic activity/Vol] 74 U/L Normal 38 - 126 U/L [facility] [employer] [facility].; [employer] [facility], [employer]. ALT No additional P-5'-P [Catalytic activity/Vol] 20 U/L Normal 12 - 55 U/L [facility]; ALT With P-5'-P [Catalytic activity/Vol] 20 U/L Normal 12 - 55 U/L [facility]; AST [Catalytic activity/Vol] 11 U/L Normal 8 - 34 U/L [facility].; AST With P-5'-P [Catalytic activity/Vol] 11 U/L Normal 8 - 34 U/L [facility]; Bilirubin [Mass/Vol] 0.5 mg/dL Normal 0.2 - 1 .2 mg/dL [facility]; Calcium [Mass/Vol] 8.6 mg/dL Normal 8.4 - 10. 1 mg/dL [facility]; Chloride [Moles/Vol] 108 mmol/L Normal 98 - 11 0 meq/L [facility]; Cholesterol [Mass/Vol] 177 mg/dL Normal 50 - 199 mg/dL [facility]; Cholesterol in HDL [Mass/Vol] 35 mg/dL Abnormal 40 - 59 mg/dL [facility]; Cholesterol in LDL [Mass/Vol] 128 mg/dL Normal 0 - 129 mg/dL [facility]; [facility] CO2 [Moles/Vol] 26 mmol/L Normal 22 - 32 meq/L [facility]; Creatinine [Mass/Vol] 0.91 mg/dL Normal 0.60 - 1.40 mg/dL [facility]; GFR/1.73 sq M.predicted among blacks MDRD (S/P/Bld) [Vol rate/Area] mL/min/{1.73_m2} Normal [facility].; [facility] Work Phone: GFR/1.73 sq M.predicted among non-blacks MDRD (S/P/Bld) [Vol rate/Area] mL/min/{1.73_m2} Normal [facility].; [facility] Work Phone: Globulin (S) [Mass/Vol] 2.6 g/dL Normal 1.5 - 3.8 g/dL [facility]; Glucose [Mass/Vol] 88 mg/dL Normal 82 - 115 mg/dL [facility]; Iron [Mass/Vol] 71 ug/dL Normal 49 - 181 ug/dL [facility]; [facility], [facility] Potassium [Moles/Vol] 4.2 mmol/L Normal 3.5 - 5.0 meq/L [facility]; Prostate specific Ag [Mass/Vol] 0.78 ng/mL Normal 0.02 - 4.00 ng/mL [facility]; Protein [Mass/Vol] 6.5 g/dL Normal 6.0 - 8.5 g/dL [facility]; [facility] Sodium [Moles/Vol] 141 mmol/L Normal 136 - 145 meq/L [facility]; Triglyceride [Mass/Vol] 71 mg/dL Normal 3 - 149 mg/d L [facility]; [facility]. TSH Qn 2.680 m[IU]/L Normal 0.360 - 3.740 {mcIU/mL} [facility]; [facility] Urea nitrogen [Mass/Vol] 21.0 mg/dL Normal 8.0 - 22.0 mg/dL [facility].; [facility] Urea nitrogen/Creatinine [Mass ratio] 23.1 {ratio} Abnormal 10.0 - 22.0 {ratio} [facility].; [facility] Laboratory - Hematology and Cell countson 07-28-2019 Basophils (Bld) [#/Vol] 0.28 {10^3/mcL} Abnormal 0 .00 - 0.27 {10^3/mcL} [facility].; [facility]. Work Phone: Basophils/100 WBC (Bld) 0.5 % Normal 0.0 - 2.5 % [facility]; [facility] Work Phone: Cells Counted Total (Unsp spec) [#] 100 Normal [facility]; [facility] Work Phone: Eosinophils (Bld) [#/Vol] 0.00 {10^3/mcL} Normal 0.00 - 0.65 {10^3/mcL} [facility].; [facility]. Work Phone: Eosinophils/100 WBC (Bld) 0.0 % Normal 0.0 - 6.0 % [facility]; [facility] Work Phone: Erythrocyte distribution width (RBC) [Ratio] 15.1 % Normal 11.5 - 15.5 % [facility].; [facility], [facility] Hematocrit (Bld) [Volume fraction] 46.4 % Normal 40.0 - 52.0 % [facility].; [facility], [facility] Hemoglobin (Bld) [Mass/Vol] 15.1 g/dL Normal 13.0 - 17.5 g/dL [facility].; [facility]. Lymphocytes (Bld) [#/Vol] 49.77 {10^3/mcL} Abnormal 0.90 - 4.32 {10^3/mcL} [facility].; [facility]. Work Phone: Lymphocytes/100 WBC (Bld) 90.5 % Abnormal 20.0 - 40.0 % [facility].; [facility]. Work Phone: MCH (RBC) [Entitic mass] 32.2 pg Normal 27.0 - 33.0 pg [facility].; [facility], [facility]. MCHC (RBC) [Mass/Vol] 32.5 g/dL Normal 32.0 - 36.0 g/dL [facility].; [facility], [facility]. MCV (RBC) [Entitic vol] 99.0 fL Normal 81.0 - 100.0 fL [facility].; [facility]. Monocytes (Bld) [#/Vol] 0.28 {10^3/mcL} Normal 0 .09 - 1.40 {10^3/mcL} [facility].; [facility], [facility]. Work Phone: Monocytes/100 WBC (Bld) 0.5 % Abnormal 2.0 - 13.0 % [facility].; [facility]. Work Phone: Neutrophils (Bld) [#/Vol] 4.68 {10^3/mcL} Normal 2.25 - 8.10 {10^3/mcL} [facility].; [facility], [facility]. Work Phone: Neutrophils/100 WBC (Bld) 8.5 % Abnormal 50.0 - 75.0 % [facility].; [facility]. Work Phone: Platelet mean volume (Bld) [Entitic vol] 8.1 fL Normal 6.4 - 10.5 fL [facility] [employer].; [employer] [facility] CenterO[facility]. Platelets (Bld) [#/Vol] 267 {10^3/mcL} Normal 15 0 - 450 {10^3/mcL} [facility] [employer].; [employer] [facility] [employer] [facility], [employer]. Platelets LM Ql (Bld) Normal-NORMAL Normal [facility].; [facility]. Work Phone: RBC (Bld) [#/Vol] 4.69 {10^6/mcL} Normal 4.50 - 6.00 {10^6/mcL} [facility] [employer].; [employer] [facility], [employer]. RBC morphology finding Nom (Bld) Normal-NORMAL Normal [facility] [employer].; [facility]. Work Phone: WBC (Bld) [#/Vol] 55.00 {10^3/mcL} Abnormal 4.50 - 10.80 {10^3/mcL} [facility] [employer].; [employer] [facility] [employer] [facility], [employer]. No Panel Informationon 07-28 CBC Path Review See Note Normal [facility] [employer].; [facility] [employer]. Work Phone: Differential Comment See Below-SEE BELOW Normal [facility] [employer].; [facility] [employer]. Work Phone: Electrolyte Balance 7.0 meq/L Normal 4.0 - 15 .0 meq/L [facility] [employer].; [employer] [facility] [employer]. Laboratory - Chemistry and C hemistry - challengeon 07-22-2019 Albumin [Mass/Vol] 3.6 g/dL Normal 3.2 - 5.0 g/dL [facility] [employer].; [email or web address] [facility] [employer]. Work Phone: Albumin/Globulin [Mass ratio] 1.1 {ratio} Normal 0.9 - 2.4 {RATIO} [facility]; [facility] Work Phone: ALT [Catalytic activity/Vol] 19 U/L Normal 16 - 61 U/L [facility] [facility]; [facility] Work Phone: AST [Catalytic activity/Vol] 11 U/L Abnormal 15 - 37 U/L [facility]; [facility] Work Phone: Bilirubin [Mass/Vol] 0.40 mg/dL Normal 0.20 - 1.00 mg/dL [facility]; [facility] Work Phone: Calcium [Mass/Vol] 8.6 mg/dL Normal 8.5 - 10. 1 mg/dL [facility]; [facility] Work Phone: Chloride [Moles/Vol] 106 mmol/L Normal 98 - 10 7 mmol/L [facility]; [facility] Work Phone: CO2 [Moles/Vol] 27.0 mmol/L Normal 21.0 - 32.0 mmol/L [facility]; [facility] Work Phone: Creatinine [Mass/Vol] 1.34 mg/dL Abnormal 0.70 - 1.30 mg/dL [facility]; [facility] Work Phone: GFR/1.73 sq M.predicted among non-blacks MDRD (S/P/Bld) [Vol rate/Area] 56 mL/min/{1.73_m2} Abnormal [facility]; [facility] Work Phone: Globulin (S) [Mass/Vol] 3.2 g/dL Normal 2.2 - 4.2 g/dL [facility]; [facility] Work Phone: Glucose [Mass/Vol] 140 mg/dL Abnormal 74 - 106 mg/dL [facility]; [facility] Work Phone: Potassium [Moles/Vol] 4.7 mmol/L Normal 3.5 - 5.1 mmol/L [facility]; [facility] Work Phone: Sodium [Moles/Vol] 139 mmol/L Normal 136 - 145 mmol/L [facility]; [facility] Work Phone: Urea nitrogen [Mass/Vol] 21 mg/dL Abnormal 7 - 18 mg/dL [facility]; [facility] Work Phone: Laboratory - Hematology and Cell countson 07-22-2019 Basophils/100 WBC (Bld) 0.4 % Normal 0 - 1 % [facility]; [facility] Work Phone: Eosinophils/100 WBC (Bld) 0.3 % Normal 0 - 5 % [facility]; [facility] Work Phone: Erythrocyte distribution width (RBC) [Ratio] 14.6 % Normal 11.6 - 14.6 % [facility]; [facility] Work Phone: Hematocrit (Bld) [Volume fraction] 45.8 % Normal 40 - 54 % [facility]; [facility] Work Phone: Hemoglobin (Bld) [Mass/Vol] 14.8 g/dL Normal 13.0 - 16.5 g/dL [facility]; [facility]. Work Phone: Lymphocytes/100 WBC (Bld) 86.4 % Abnormal 19 - 41 % [facility]. Work Phone: MCH (RBC) [Entitic mass] 31.7 pg Normal 27.0 - 32.0 pg [facility].; [facility]. Work Phone: MCHC (RBC) [Mass/Vol] 32.3 g/dL Normal 32 - 36 g/dL [facility] Work Phone: MCV (RBC) [Entitic vol] 98.1 fL Abnormal 80 - 94 fL [facility]. Work Phone: Monocytes/100 WBC (Bld) 2.3 % Normal 0 - 10 % [facility]. Work Phone: Neutrophils/100 WBC (Bld) 10.4 % Abnormal 47 - 70 % [facility]. Work Phone: Platelet mean volume (Bld) [Entitic vol] 9.3 fL Normal 6.2 - 12.0 fL [facility]. Work Phone: Platelets (Bld) [#/Vol] 276 10*3/uL Normal 150 - 450 K/mm3 [facility]; [facility] Work Phone: RBC (Bld) [#/Vol] 4.67 10*6/uL Normal 4.6 - 6.2 {M/mm3} [facility]; [facility]. Work Phone: WBC (Bld) [#/Vol] 63.0 10*3/uL Abnormal 4.4 - 11.0 K/mm3 [facility].; [facility]. Work Phone: No Panel Informationon 07-22 Absolute Lymph 54.42 {X10_3/uL} Abnormal 0.83 - 4. 51 {X10_3/uL} [facility]; [facility]. Work Phone: Absolute Neut 6.6 {X10_3/uL} Normal 2.0 - 7.7 {X10_3/uL} [facility]. Work Phone: ALK P 75 U/L Normal 45 - 117 U/L [facility]; [facility]. Work Phone: BUN/CRE 15.7 {RATIO} Normal 10 - 20 {RATIO} [facility]; [facility]. Work Phone: EST GFR - AA 67 mL/min Normal [facility]; [facility]. Work Phone: Estimated CRCL 42.34 ml/min Normal [facility] Work Phone: GAP 6 Normal 5 - 15 [facility]; [facility] Work Phone: IM GRAN % 0.200 % Normal 0.0 - 0.9 % [facility]; [facility]. Work Phone: LDH 135 U/L Normal 87 - 241 U/L [facility]; [facility]. Work Phone: NRBC, FLAGGED 0 % Normal 0 - 5 % [facility]; [facility]. Work Phone: PATH REV Reviewed Normal [facility]; [facility]. Work Phone: RDW SD 52.6 fL Abnormal 35.1 - 43.9 fL [facility]; [facility] Work Phone: REACTIVE LYMPH 2+ Normal [facility]; [facility]. Work Phone: SMEAR COMMENT SCANNED Normal [facility]; [facility]. Work Phone: T PROT 6.8 g/dL Normal 6.4 - 8.2 g/dL [facility]; [facility]. Work Phone: Laboratory - Chemistry and C hemistry - challengeon 01-21-2019 Albumin [Mass/Vol] 3.7 g/dL Normal 3.2 - 5.0 g/dL [facility]; [facility]. Work Phone: Albumin/Globulin [Mass ratio] 1.1 {ratio} Normal 0.9 - 2.4 {RATIO} [facility]; [facility] Work Phone: ALT [Catalytic activity/Vol] 17 U/L Normal 16 - 61 U/L [facility]; [facility] Work Phone: AST [Catalytic activity/Vol] 11 U/L Abnormal 15 - 37 U/L [facility]; [facility] Work Phone: Bilirubin [Mass/Vol] 0.70 mg/dL Normal 0.20 - 1.00 mg/dL [facility]; [facility] Work Phone: Calcium [Mass/Vol] 8.7 mg/dL Normal 8.5 - 10. 1 mg/dL [facility]; [facility] Work Phone: Chloride [Moles/Vol] 106 mmol/L Normal 98 - 10 7 mmol/L [facility]; [facility] Work Phone: CO2 [Moles/Vol] 27.0 mmol/L Normal 21.0 - 32.0 mmol/L [facility]; [facility] Work Phone: Creatinine [Mass/Vol] 1.12 mg/dL Normal 0.70 - 1.30 mg/dL [facility]; [facility] Work Phone: GFR/1.73 sq M.predicted among non-blacks MDRD (S/P/Bld) [Vol rate/Area] 69 mL/min/{1.73_m2} Normal [facility]; [facility] Work Phone: Globulin (S) [Mass/Vol] 3.3 g/dL Normal 2.2 - 4.2 g/dL [facility]; [facility] Work Phone: Glucose [Mass/Vol] 108 mg/dL Abnormal 74 - 106 mg/dL [facility]; [facility] Work Phone: Potassium [Moles/Vol] 4.6 mmol/L Normal 3.5 - 5.1 mmol/L [facility]; [facility] Work Phone: Sodium [Moles/Vol] 138 mmol/L Normal 136 - 145 mmol/L [facility]; [facility] Work Phone: Urea nitrogen [Mass/Vol] 25 mg/dL Abnormal 7 - 18 mg/dL [facility]; [facility] Work Phone: Laboratory - Hematology and Cell countson 01-21-2019 Basophils/100 WBC (Bld) 0.2 % Normal 0 - 1 % [facility]; [facility] Work Phone: Eosinophils/100 WBC (Bld) 0.3 % Normal 0 - 5 % [facility]; [facility] Work Phone: Erythrocyte distribution width (RBC) [Ratio] 15.0 % Abnormal 11.6 - 14.6 % [facility]; [facility] Work Phone: Hematocrit (Bld) [Volume fraction] 46.5 % Normal 40 - 54 % [facility]; [facility] Work Phone: Hemoglobin (Bld) [Mass/Vol] 15.7 g/dL Normal 13.0 - 16.5 g/dL [facility]; [facility] Work Phone: Lymphocytes/100 WBC (Bld) 88.1 % Abnormal 19 - 41 % [facility]. Work Phone: MCH (RBC) [Entitic mass] 32.5 pg Abnormal 27.0 - 32.0 pg [facility]; [facility]. Work Phone: MCV (RBC) [Entitic vol] 96.3 fL Abnormal 80 - 94 fL [facility]. Work Phone: Monocytes/100 WBC (Bld) 1.8 % Normal 0 - 10 % [facility]. Work Phone: Neutrophils/100 WBC (Bld) 9.4 % Abnormal 47 - 70 % [facility]. Work Phone: Platelet mean volume (Bld) [Entitic vol] 9.4 fL Normal 6.2 - 12.0 fL [facility]; [facility]. Work Phone: Platelets (Bld) [#/Vol] 240 10*3/uL Normal 150 - 450 K/mm3 [facility]. Work Phone: RBC (Bld) [#/Vol] 4.83 10*6/uL Normal 4.6 - 6.2 {M/mm3} [facility]. Work Phone: WBC (Bld) [#/Vol] 56.5 10*3/uL Abnormal 4.4 - 11.0 K/mm3 [facility].; [facility]. Work Phone: No Panel Informationon 01-21 Absolute Lymph 49.76 {X10_3/ul} Abnormal 0.83 - 4. 51 {X10_3/ul} [facility]; [facility]. Work Phone: Absolute Neut 5.3 {X10_3/uL} Normal 2.0 - 7.7 {X10_3/uL} [facility]. Work Phone: ALK P 79 U/L Normal 45 - 117 U/L [facility]. Work Phone: BUN/CRE 22.3 {RATIO} Abnormal 10 - 20 {RATIO} [facility].; [facility]. Work Phone: EST GFR - AA 83 mL/min Normal [facility].; [facility]. Work Phone: Estimated CRCL 50.65 ml/min Normal [facility]. Work Phone: GAP 5 Normal 5 - 15 [facility]. Work Phone: IM GRAN % 0.200 % Normal 0.0 - 0.9 % [facility]; [facility]. Work Phone: LDH 147 U/L Normal 87 - 241 U/L [facility] Work Phone: MCHC 33.8 {g/gl} Normal 32 - 36 {g/gl} [facility]; [facility] Work Phone: PATH REV Reviewed Normal [facility].; [facility]. Work Phone: PLT EST ADEQUATE Normal [facility].; [facility]. Work Phone: RDW SD 52.3 fL Abnormal 35.1 - 43.9 fL [facility].; [facility]. Work Phone: RED CELL MORPH NORM C+C Normal [facility].; [facility]. Work Phone: SMEAR COMMENT Normal [facility].; [facility]. Work Phone: SMUDG 1+ Abnormal [facility].; [facility]. Work Phone: T PROT 7.0 g/dL Normal 6.4 - 8.2 g/dL [facility].; [facility]. Work Phone: URIC 6.1 mg/dL Normal 3.5 - 7.2 mg/dL [facility].; [facility]. Work Phone: Laboratory - Chemistry and C hemistry - challengeon 07-16-2018 Albumin [Mass/Vol] 3.6 g/dL Normal 3.2 - 5.0 g/dL [facility]; [facility]. Work Phone: Albumin/Globulin [Mass ratio] 1.0 {ratio} Normal 0.9 - 2.4 {RATIO} [facility].; [facility] Work Phone: ALT [Catalytic activity/Vol] 16 U/L Normal 16 - 61 U/L [facility]; [facility] Work Phone: AST [Catalytic activity/Vol] 15 U/L Normal 15 - 37 U/L [facility]; [facility] Work Phone: Bilirubin [Mass/Vol] 0.50 mg/dL Normal 0.20 - 1.00 mg/dL [facility]; [facility] Work Phone: Calcium [Mass/Vol] 8.5 mg/dL Normal 8.5 - 10. 1 mg/dL [facility]; [facility] Work Phone: Chloride [Moles/Vol] 104 mmol/L Normal 98 - 10 7 mmol/L [facility]; [facility] Work Phone: CO2 [Moles/Vol] 30.0 mmol/L Normal 21.0 - 32.0 mmol/L [facility]; [facility] Work Phone: Creatinine [Mass/Vol] 0.90 mg/dL Normal 0.70 - 1.30 mg/dL [facility]; [facility] Work Phone: GFR/1.73 sq M.predicted among non-blacks MDRD (S/P/Bld) [Vol rate/Area] 89 mL/min/{1.73_m2} Normal [facility]; [facility] Work Phone: Globulin (S) [Mass/Vol] 3.5 g/dL Normal 2.2 - 4.2 g/dL [facility]; [facility] Work Phone: Glucose [Mass/Vol] 93 mg/dL Normal 74 - 106 mg/dL [facility]; [facility] Work Phone: Potassium [Moles/Vol] 4.7 mmol/L Normal 3.5 - 5.1 mmol/L [facility]; [facility] Work Phone: Sodium [Moles/Vol] 138 mmol/L Normal 136 - 145 mmol/L [facility]; [facility] Work Phone: Urea nitrogen [Mass/Vol] 21 mg/dL Abnormal 7 - 18 mg/dL [facility]; [facility] Work Phone: Laboratory - Hematology and Cell countson 07-16-2018 Basophils/100 WBC (Bld) 0.1 % Normal 0 - 1 % [facility]; [facility] Work Phone: Eosinophils/100 WBC (Bld) 0.5 % Normal 0 - 5 % [facility]; [facility] Work Phone: Erythrocyte distribution width (RBC) [Ratio] 14.6 % Normal 11.6 - 14.6 % [facility]; [facility] Work Phone: Hematocrit (Bld) [Volume fraction] 46.9 % Normal 40 - 54 % [facility]; [facility] Work Phone: Hemoglobin (Bld) [Mass/Vol] 15.2 g/dL Normal 13.0 - 16.5 g/dL [facility]; [facility]. Work Phone: Lymphocytes/100 WBC (Bld) 82.2 % Abnormal 19 - 41 % [facility]; [facility]. Work Phone: MCH (RBC) [Entitic mass] 31.9 pg Normal 27.0 - 32.0 pg [facility]; [facility]. Work Phone: MCV (RBC) [Entitic vol] 98.5 fL Abnormal 80 - 94 fL [facility]. Work Phone: Monocytes/100 WBC (Bld) 2.1 % Normal 0 - 10 % [facility]. Work Phone: Neutrophils/100 WBC (Bld) 14.9 % Abnormal 47 - 70 % [facility]. Work Phone: Platelet mean volume (Bld) [Entitic vol] 9.0 fL Normal 6.2 - 12.0 fL [facility]; [facility]. Work Phone: Platelets (Bld) [#/Vol] 304 10*3/uL Normal 150 - 450 K/mm3 [facility]; [facility]. Work Phone: RBC (Bld) [#/Vol] 4.76 10*6/uL Normal 4.6 - 6.2 {M/mm3} [facility]. Work Phone: WBC (Bld) [#/Vol] 45.2 10*3/uL Abnormal 4.4 - 11.0 K/mm3 [facility]; [facility] Work Phone: No Panel Informationon 07-16 Absolute Lymph 37.17 {X10_3/ul} Abnormal 0.83 - 4. 51 {X10_3/ul} [facility]; [facility]. Work Phone: Absolute Neut 6.7 {X10_3/uL} Normal 2.0 - 7.7 {X10_3/uL} [facility]; [facility]. Work Phone: ALK P 81 U/L Normal 45 - 117 U/L [facility]; [facility]. Work Phone: ATYPICAL LYMPH 3+ Normal [facility]; [facility]. Work Phone: BUN/CRE 23.4 {RATIO} Abnormal 10 - 20 {RATIO} [facility]; [facility]. Work Phone: EST GFR - AA 107 mL/min Normal [facility]; [facility]. Work Phone: Estimated CRCL 63.95 ml/min Normal [facility] Work Phone: GAP 4 Abnormal 5 - 15 [facility]; [facility] Work Phone: IM GRAN % 0.200 % Normal 0.0 - 0.9 % [facility]; [facility] Work Phone: LDH 137 U/L Normal 87 - 241 U/L [facility]; [facility] Work Phone: MCHC 32.4 {g/gl} Normal 32 - 36 {g/gl} [facility]; [facility] Work Phone: MISC LAB TEST Normal [facility]; [facility] Work Phone: PATH REV Reviewed Normal [facility]; [facility] Work Phone: RDW SD 52.4 fL Abnormal 35.1 - 43.9 fL [facility]; [facility] Work Phone: T PROT 7.1 g/dL Normal 6.4 - 8.2 g/dL [facility]; [facility] Work Phone: URIC 4.3 mg/dL Normal 3.5 - 7.2 mg/dL [facility]; [facility] Work Phone: Laboratory - Chemistry and C hemistry - challengeon 07-13-2018 Calcium [Mass/Vol] 8.4 mg/dL Abnormal 8.5 - 10. 1 mg/dL [facility]; [facility] Work Phone: Chloride [Moles/Vol] 105 mmol/L Normal 98 - 10 7 mmol/L [facility]; [facility] Work Phone: CO2 [Moles/Vol] 30.0 mmol/L Normal 21.0 - 32.0 mmol/L [facility]; [facility] Work Phone: Creatinine [Mass/Vol] 0.94 mg/dL Normal 0.70 - 1.30 mg/dL [facility]; [facility] Work Phone: GFR/1.73 sq M.predicted among non-blacks MDRD (S/P/Bld) [Vol rate/Area] 84 mL/min/{1.73_m2} Normal [facility]; [facility] Work Phone: Glucose [Mass/Vol] 87 mg/dL Normal 74 - 106 mg/dL [facility]; [facility] Work Phone: Potassium [Moles/Vol] 4.0 mmol/L Normal 3.5 - 5.1 mmol/L [facility]; [facility] Work Phone: Sodium [Moles/Vol] 141 mmol/L Normal 136 - 145 mmol/L [facility]; [facility] Work Phone: Urea nitrogen [Mass/Vol] 19 mg/dL Abnormal 7 - 18 mg/dL [facility]; [facility] Work Phone: Laboratory - Hematology and Cell counts 07-13-2018 Erythrocyte distribution width (RBC) [Ratio] 14.8 % Abnormal 11.6 - 14.6 % [facility]; [facility] Work Phone: Hematocrit (Bld) [Volume fraction] 44.4 % Normal 40 - 54 % [facility]; [facility] Work Phone: Hemoglobin (Bld) [Mass/Vol] 14.5 g/dL Normal 13.0 - 16.5 g/dL [facility]; [facility] Work Phone: MCH (RBC) [Entitic mass] 32.4 pg Abnormal 27.0 - 32.0 pg [facility]; [facility] Work Phone: MCV (RBC) [Entitic vol] 99.3 fL Abnormal 80 - 94 fL [facility]; [facility] Work Phone: Platelet mean volume (Bld) [Entitic vol] 9.7 fL Normal 6.2 - 12.0 fL [facility]; [facility] Work Phone: Platelets (Bld) [#/Vol] 283 10*3/uL Normal 150 - 450 K/mm3 [facility]; [facility] Work Phone: RBC (Bld) [#/Vol] 4.47 10*6/uL Abnormal 4.6 - 6.2 {M/mm3} [facility]. Work Phone: WBC (Bld) [#/Vol] 39.7 10*3/uL Abnormal 4.4 - 11.0 K/mm3 [facility]; [facility]. Work Phone: No Panel Informationon 07-13 BUN/CRE 20.2 {RATIO} Abnormal 10 - 20 {RATIO} [facility] [facility] Work Phone: EST GFR - AA 102 mL/min Normal [facility]; [facility] Work Phone: GAP 6 Normal 5 - 15 [facility] Work Phone: [facility] 32.7 {g/gl} Normal 32 - 36 {g/gl} [facility] Work Phone: PATH REV Reviewed Normal [facility] Work Phone: RDW SD 52.5 fL Abnormal 35.1 - 43.9 fL [facility] Work Phone: SMEAR COMMENT SCANNED Normal [facility]; [facility] Work Phone: Vital Signs Date Time Vital Sign Value Performing Clinician Facility 06-09-2025 08:41-0400 Diastolic blood pressure 77 mm[Hg] Dr. Anthony Cisneros MD Work Phone: [facility] 06-09-2025 08:41-0400 Heart rate 65 /min Dr. Anthony Cisneros MD Work Phone: [facility] 06-09-2025 08:41-0400 Systolic blood pressure 133 mm[Hg] Dr. Anthony Cisneros MD Work Phone: [facility] 05-31-2025 13:26-0400 Body height 162.[address] Anthony Cisneros MD Work Phone: [facility] 05-31-2025 13:26-0400 Body mass index (BMI) [Ratio] 24.2 kg/m2 Dr. Anthony Cisneros MD Work Phone: [facility] 05-31-2025 13:26-0400 Body weight 63.[address] Anthony Cisneros MD Work Phone: [facility] 05-31-2025 13:26-0400 Diastolic blood pressure 88 mm[Hg] Dr. Anthony Cisneros MD Work Phone: [facility] 05-31-2025 13:26-0400 Heart rate 84 /min Dr. Anthony Cisneros MD Work Phone: [facility] 05-31-2025 13:26-0400 Respiratory rate 18 /min Dr. Anthony Cisneros MD Work Phone: [facility] 05-31-2025 13:26-0400 Systolic blood pressure 165 mm[Hg] Dr. Anthony Cisneros MD Work Phone: [facility] 02-22-2025 14:40-0400 Body height 162.[address] Anthony Cisneros MD Work Phone: [facility] 02-22-2025 14:35-0400 Body weight 62.[address] Anthony Cisneros MD Work Phone: [facility] 02-22-2025 14:35-0400 Diastolic blood pressure 68 mm[Hg] Dr. Anthony Cisneros MD Work Phone: [facility] 02-22-2025 14:35-0400 Heart rate 60 /min Dr. Anthony Cisneros MD Work Phone: [facility] 02-22-2025 14:35-0400 Respiratory rate 16 /min Dr. Anthony Cisneros MD Work Phone: [facility] 02-22-2025 14:35-0400 Systolic blood pressure 121 mm[Hg] Dr. Anthony Cisneros MD Work Phone: [facility] 10-28-2024 15:25-0400 Body height 161.93 cm FAY MUNOZ RN [facility], [facility].; [facility], [facility]. 10-28-2024 15:25-0400 Diastolic blood pressure 65 mm[Hg] FAY MUNOZ RN [facility], [facility].; [facility], [facility]. Comment on above: Patient Position: Sitting; Cuff Location : Left Arm; Cuff Size: Standard 10-28-2024 15:25-0400 Heart rate 68 /min FAY MUNOZ RN [facility].; [facility], [facility]. Comment on above: Pattern: Regular 10-28-2024 15:25-0400 Systolic blood pressure 111 mm[Hg] FAY MUNOZ RN [facility].; [facility]. Comment on above: Patient Position: Sitting; Cuff Location : Left Arm; Cuff Size: Standard 10-15-2024 10:02-0500 Body mass index (BMI) [Ratio] 24.45 kg/m2 Toshia Booker THERAPY TECHNICIAN.DRY SAND MOLDER Work Phone: [facility] 10-15-2024 10:02-0500 Body temperature 98.71 [degF] Toshia Booker THERAPY TECHNICIAN.DRY SAND MOLDER Work Phone: [facility] 10-15-2024 10:02-0500 Body weight 62.6 kg Toshia Booker THERAPY TECHNICIAN.DRY SAND MOLDER Work Phone: [facility] 10-15-2024 10:02-0500 Diastolic blood pressure 71 mm[Hg] Toshia Booker THERAPY TECHNICIAN.DRY SAND MOLDER Work Phone: [facility] 10-15-2024 10:02-0500 Heart rate 62 /min Toshia Booker THERAPY TECHNICIAN.DRY SAND MOLDER Work Phone: [facility] 10-15-2024 10:02-0500 SaO2% (BldA) [Mass fraction] 91 % Toshia Booker THERAPY TECHNICIAN.DRY SAND MOLDER Work Phone: [facility] 10-15-2024 10:02-0500 Systolic blood pressure 121 mm[Hg] Toshia Booker THERAPY TECHNICIAN.DRY SAND MOLDER Work Phone: [facility] 04-13-2024 13:49-0400 Body mass index (BMI) [Ratio] 24.68 kg/m2 Toshia Booker THERAPY TECHNICIAN.DRY SAND MOLDER Work Phone: [facility] 04-13-2024 13:49-0400 Body temperature 97.2 [degF] Toshia Josephenter THERAPY TECHNICIAN.DRY SAND MOLDER Work Phone: [facility] 04-13-2024 13:49-0400 Body weight 63.2 kg Toshia Booker THERAPY TECHNICIAN.DRY SAND MOLDER Work Phone: [facility] 04-13-2024 13:49-0400 Diastolic blood pressure 71 mm[Hg] [place] Booker THERAPY TECHNICIAN.DRY SAND MOLDER Work Phone: [facility] 04-13-2024 13:49-0400 Heart rate 64 /min [place] Booker THERAPY TECHNICIAN.DRY SAND MOLDER Work Phone: [facility] 04-13-2024 13:49-0400 SaO2% (BldA) [Mass fraction] 98 % Toshia Booker THERAPY TECHNICIAN.DRY SAND MOLDER Work Phone: [facility] 04-13-2024 13:49-0400 Systolic blood pressure 117 mm[Hg] [place] Booker THERAPY TECHNICIAN.DRY SAND MOLDER Work Phone: [facility] 09-26-2023 12:18-0500 Body height 160 cm [place] Booker THERAPY TECHNICIAN.DRY SAND MOLDER Work Phone: [facility] 09-26-2023 12:18-0500 Body temperature 98.4 [degF] [place] Booker THERAPY TECHNICIAN.DRY SAND MOLDER Work Phone: [facility] 09-26-2023 12:18-0500 Body weight 64.41 kg [place] Booker THERAPY TECHNICIAN.DRY SAND MOLDER Work Phone: [facility] 09-26-2023 12:18-0500 Diastolic blood pressure 79 mm[Hg] [place] Booker THERAPY TECHNICIAN.DRY SAND MOLDER Work Phone: [facility] 09-26-2023 12:18-0500 Heart rate 70 /min Toshia Booker THERAPY TECHNICIAN.DRY SAND MOLDER Work Phone: [facility] 09-26-2023 12:18-0500 SaO2% (BldA) [Mass fraction] 96 % Toshia Booker THERAPY TECHNICIAN.DRY SAND MOLDER Work Phone: [facility] 09-26-2023 12:18-0500 Systolic blood pressure 144 mm[Hg] [place] Booker THERAPY TECHNICIAN.DRY SAND MOLDER Work Phone: [facility] 03-27-2023 11:38-0400 Body height 160 cm Anatoliy Masci DO Work Phone: [facility] 03-27-2023 11:38-0400 Body weight 63.5 kg Anatoliy Masci DO Work Phone: [facility] 03-27-2023 11:38-0400 Diastolic blood pressure 73 mm[Hg] Anatoliy Masci DO Work Phone: [facility] 03-27-2023 11:38-0400 Heart rate 74 /min Anatoliy Masci DO Work Phone: [facility] 03-27-2023 11:38-0400 Respiratory rate 16 /min Anatoliy Masci DO Work Phone: [facility] 03-27-2023 11:38-0400 SaO2% (BldA) [Mass fraction] 95 % Anatoliy Masci DO Work Phone: [facility] 03-27-2023 11:38-0400 Systolic blood pressure 124 mm[Hg] Anatoliy Masci DO Work Phone: [facility] 02-25-2022 16:06-0400 Body height 160 cm Ludivina Cancino MD Work Phone: [facility] 02-25-2022 16:06-0400 Body temperature 98.01 [degF] Ludivina Cancino MD Work Phone: [facility] 02-25-2022 16:06-0400 Body weight 67.36 kg Ludivina Cancino MD Work Phone: [facility] 02-25-2022 16:06-0400 Diastolic blood pressure 65 mm[Hg] Ludivina Cancino MD Work Phone: [facility] 02-25-2022 16:06-0400 Heart rate 70 /min Ludivina Cancino MD Work Phone: [facility] 02-25-2022 16:06-0400 SaO2% (BldA) [Mass fraction] 98 % Ludivina Cancino MD Work Phone: [facility] 02-25-2022 16:06-0400 Systolic blood pressure 118 mm[Hg] Ludivina Cancino MD Work Phone: [facility] 08-21-2021 10:31-0500 Body height 161.93 cm Linnette Benites RN [facility] [employer] [facility] [employer] [facility] 08-21-2021 10:31-0500 Body mass index (BMI) [Ratio] 25.26 kg/m2 Linnette Benites RN [facility] [employer] [facility] [employer] [facility] 08-21-2021 10:31-0500 Body surface area Derived from formula 1.71 m2 Linnette Benites RN [facility] [employer] [facility] [employer] [facility], [employer]. 08-21-2021 10:31-0500 Body weight 66.23 kg Linnette Benites RN [facility] [employer] [facility] [employer] [facility], [employer]. 08-21-2021 10:31-0500 Diastolic blood pressure 74 mm[Hg] Linnette Benites RN [facility] [employer] [facility] [employer] [facility] [employer] [facility] Comment on above: Patient Position: Sitting; Cuff Location : Left Arm; Cuff Size: Large 08-21-2021 10:31-0500 Heart rate 70 /min Linnette Benites RN [facility] [employer] [facility], [employer] [facility] [employer] [facility] [employer] Comment on above: Pattern: Regular 08-21-2021 10:31-0500 Systolic blood pressure 123 mm[Hg] Linnette Benites RN [facility] [employer] [facility] [employer] [facility] [employer] [facility] [employer] Comment on above: Patient Position: Sitting; Cuff Location : Left Arm; Cuff Size: Large 08-02-2019 14:01-0500 Body height 161.93 cm FAY GRATE JERMAINE [facility] [employer] [facility] [employer] [facility] [employer] [employer] 08-02-2019 14:01-0500 Body mass index (BMI) [Ratio] 27.85 kg/m2 FAY GRATE JERMAINE [facility] [employer] [facility] [employer] [employer] 08-02-2019 14:01-0500 Body surface area Derived from formula 1.78 m2 FAY MUNOZ RN [facility] [employer] [facility] 08-02-2019 14:0500 Body weight 73.03 kg FAY GRATE JERMAINE [facility] [employer] [facility] [facility] [employer] [facility] [employer] 08-02-2019 14:010500 Diastolic blood pressure 75 mm[Hg] FAY GRATE JERMAINE [facility] [employer] [facility] [employer] [facility] [employer] [facility]. Comment on above: Patient Position: Sitting; Cuff Location : Left Arm; Cuff Size: Standard 08-02-2019 14:010500 Heart rate 79 /min FAY GRATE JERMAINE [facility] [employer] [facility].; [facility] [facility] [employer] Comment on above: Pattern: Regular 08-02-2019 14:01-0500 Systolic blood pressure 125 mm[Hg] FAY GRATE JERMAINE [facility] [employer] [facility].; [employer] [facility] [employer]. Comment on above: Patient Position: Sitting; Cuff Location : Left Arm; Cuff Size: Standard 07-28-2019 14:11-0500 Body height 161.93 cm Zulema CISNEROS MD Work Phone: [employer] 07-28-2019 14:11-0500 Body mass index (BMI) [Ratio] 27.42 kg/m2 Zulema CISNEROS MD Work Phone: [employer] 07-28-2019 14:11-0500 Body surface area Derived from formula 1.77 m2 Zulema CISNEROS MD Work Phone: [employer]. 07-28-2019 [id number] Body weight 71.9 kg Zulema CISNEROS MD Work Phone: [employer]. Encounters Encounter Date Encounter Type Care Provider Facility Start: 06-09-2025 End: 06-09-2025 ambulatory Humza Zeferino [place] Start: 06-09-2025 End: 06-09-2025 ambulatory Humza Mcgarry Facility:[facility] Start: 05-31-2025 End: 05-31-[address] Humza Mcgarry MD -[facility] Work Phone: Start: 05-31-2025 End: 05-31-[address] Anthony Cisneros MD Work Phone: -[facility] Start: 04-07-2025 End: 04-07-2025 Historical Summary Zulema CISNEROS MD Work Phone: [facility] Start: 03-08-2025 End: 03-08-[address] Anthony Cisneros MD Work Phone: -Laboratory Start: 03-08-2025 End: 03-08-2025 Patient encounter procedure Caleb Gutierrez PA -Laboratory Work Phone: Start: 03-08-2025 End: 03-08-2025 ambulatory Anthony Cisneros Facility:[facility] Start: 02-22-2025 End: 02-22-2025 Patient encounter procedure Caleb FLORES -[facility] Work Phone: Start: 02-22-2025 End: 02-22-[address] Anthony Cisneros MD Work Phone: -[facility] Start: 02-03-2025 ambulatory Anthony Gold y:[facility] Start: 10-31-2024 Review Zulema CISNEROS MD Work Phone: [facility] Start: 10-31-2024 End: 10-31-2024 Results Review Zulema CISNEROS MD Work Phone: [facility] Start: 10-28-2024 End: 10-28-2024 Office outpatient visit 15 minutes Zulema CISNEROS MD Work Phone: [facility] Start: 10-22-2024 End: 10-28-2024 Telephone encounter Toshia Booker THERAPY TECHNICIAN.DRY SAND MOLDER Work Phone: Hematology/Oncology Comment on above: Results Start: 10-18-2024 End: 10-18-2024 Telephone encounter Toshia Booker THERAPY TECHNICIAN.DRY SAND MOLDER Work Phone: Hematology/Oncology Start: 10-15-2024 End: 10-15-2024 Patient encounter procedure Toshia Booker THERAPY TECHNICIAN.DRY SAND MOLDER Work Phone: Hematology/Oncology Start: 10-15-2024 End: 10-15-2024 ambulatory Toshia Booker THERAPY TECHNICIAN.DRY SAND MOLDER Work Phone: Hematology/Oncology Comment on above: CLL (chronic lymphoc ytic leukemia) (HCC) (Primary Dx) Start: 10-07-2024 End: 10-07-2024 Emergency department patient visit [facility] Facility:[facility] Start: 08-20-2024 End: 08-20-2024 ambulatory Pascale FLORES [place] [place] Start: 04-21-2024 End: 04-21-2024 Results Review Zulema CISNEROS MD Work Phone: [facility] Start: 04-15-2024 End: 04-15-2024 Historical Summary Zulema CISNEROS MD Work Phone: [facility] Start: 04-15-2024 End: 04-15-2024 Historical Summary Zulema CISNEROS MD Work Phone: [facility] Start: 04-13-2024 End: 04-13-2024 Patient encounter procedure Toshia Booker THERAPY TECHNICIAN.DRY SAND MOLDER Work Phone: Hematology/Oncology Start: 04-13-2024 End: 04-13-2024 ambulatory Toshia Booker THERAPY TECHNICIAN.DRY SAND MOLDER Work Phone: Hematology/Oncology Comment on above: CLL (chronic lymphoc ytic leukemia) (HCC) (Primary Dx) Start: 10-01-2023 Telephone encounter Toshia edgar THERAPY TECHNICIAN.DRY SAND MOLDER Work Phone: Hematology/Oncology Start: 09-26-2023 End: 09-26-2023 ambulatory Toshia Booker THERAPY TECHNICIAN.DRY SAND MOLDER Work Phone: Hematology/Oncology Comment on above: CLL (chronic lymphoc ytic leukemia) (HCC) (Primary Dx) Start: 09-26-2023 End: 09-26-2023 Patient encounter procedure Toshia Josephenter THERAPY TECHNICIAN.DRY SAND MOLDER Work Phone: [facility] Start: 03-28-2023 End: 03-28-2023 Historical Summary Zulema CISNEROS MD Work Phone: [facility] Start: 03-27-2023 End: 03-27-2023 ambulatory Anatoliy Jo DO Work Phone: Hematology/Oncology Comment on above: CLL (chronic lymphoc ytic leukemia) (HCC) (Primary Dx); Skin lesion Start: 03-27-2023 End: 03-27-2023 Patient encounter procedure Anatoliy Jo DO Work Phone: [facility] Start: 03-26-2023 Orders Only Anatoliy [place] Work Phone: Hematology/Oncology Comment on above: CLL (chronic lymphoc ytic leukemia) (HCC) (Primary Dx) Start: 02-25-2022 End: 02-25-2022 ambulatory Ludivina Cancino MD Work Phone: Hematology/Oncology Comment on above: CLL (chronic lymphoc ytic leukemia) (HCC) (Primary Dx) Start: 02-25-2022 End: 02-25-2022 Patient encounter procedure Ludivina Cancino MD Work Phone: [facility] Start: 02-13-2022 Orders Only Ludivina Cancino MD Work Phone: Hematology/Oncology Comment on above: CLL (chronic lymphoc ytic leukemia) (HCC) (Primary Dx) Start: 08-22-2021 End: 08-22-2021 Results Review Zulema CISNEROS MD Work Phone: [facility] [facility] [employer] [facility] Start: 08-21-2021 End: 08-21-2021 Office outpatient visit 15 minutes Zulema CISNEROS MD Work Phone: [employer] [facility] [employer] [facility] Start: 08-02-2019 End: 08-02-2019 Patient encounter procedure FAYRONY MUNOZ RN [facility] [employer] [facility]; [employer] [facility] [place] Start: 08-02-2019 End: 08-02-2019 Periodic preventive med est patient 65yrs& older Zulema CISNEROS MD Work Phone: [facility] [employer] [facility] Start: 08-02-2019 End: 08-02-2019 Physical examination JODEE CHENG CITRIX ENGINEER-C Work Phone: [facility]; [employer] [facility] [place] Start: 07-28-2019 End: 07-28-2019 Lab Only Zulema CISNEROS MD Work Phone: [employer] [facility] [employer] [facility] Patient encounter procedure FAY MUNOZ RN [facility] [employer] [facility]; [facility] [employer] [facility] Procedures Date Procedure Procedure Detail Performing Clinician Start: 04-18-2024 End: 04-18-2024 coronary stenting x 2 Zulema CISNEROS MD Work Phone: Start: 03-18-2024 End: 03-18-2024 angioplasty and 2 coronary stents placed Zulema CISNEROS MD Work Phone: Start: 08-21-2021 End: 08-21-2021 Dischrg meds reconciled w/current med list Zulema CISNEROS MD Work Phone: Start: 08-02-2019 End: 08-02-2019 Falls risk assessment documented JODEE CHENG CITRIX ENGINEER-C Work Phone: Start: 08-02-2019 End: 08-02-2019 Screening colonoscopy JODEE ORELLANA CITRIX ENGINEER-C Work Phone: Comment on above: Refused. Discussed. Start: 08-02-2019 End: 08-02-2019 Urinary Incontinence FAY MUNOZ RN Comment on above: Negative. Appendectomy FAY MUNOZ RN Appendectomy FAY MUNOZ RN H/O: surgery History of nasal surgery Dr. Anthony Cisneros MD Work Phone: Comment on above: 1980 History of appendectomy Hx of appendectom y Dr. Anthony Cisneros MD Work Phone: Comment on above: 1970 History of placement of stent for coronary artery disease History of coronary artery stent placement Dr. Humza Mcgarry MD History of repair of inguinal hernia Hx of right inguinal hernia repair Dr. Anthony Cisneros MD Work Phone: Comment on above: 1981 nasal surgery FAY MUNOZ R N Repair of inguinal hernia FAY MUNOZ RN Repair of inguinal hernia FAY MUNOZ RN Comment on above: Right. Plan of Treatment Date Care Activity Detail Author Start: 09-26-2026 Diabetes Screening Diabetes Screenin [facility] Start: 03-27-2026 DIABETES SCREEN DIABETES SCREEN [facility] Start: 06-09-2025 End: 06-09-2025 Patient encounter procedure -[facility] Work Phone: Start: 04-22-2025 End: 04-22-2025 Follow-up encounter 04/22/2025 10:00 AM EDT Visit (SP) Office Hematology/Oncology [address] [place] [address] Toshia Booker APRN.DRY SAND MOLDER [address] [place] [address] 6 mo follow up with CBC/Diff Hematology/Oncology Comment on above: 6 mo follow up with CBC/Diff Start: 04-22-2025 End: 04-22-2025 ambulatory 04/22/2025 9:45 AM EDT Results Only [facility] [address] [place] [address] CBC/DIFF* [place] [facility] Comment on above: CBC/DIFF* Start: 02-25-2025 DIABETES SCREEN DIABETES SCREEN [facility] Start: 10-28-2024 Basic metabolic pane l calcium total BMP (92331) Start: 28-Oct-2024 15:47-04:00 [facility] [place] [facility] Start: 10-15-2024 End: 10-15-2024 Follow-up encounter 10/15/2024 10:30 AM EST Visit (SP) Office Hematology/Oncology [address] [place] [id number] Toshia Booker APRN.DRY SAND MOLDER [address] [place] [address] 6 mo follow up with CBC/Diff Hematology/Oncology Comment on above: 6 mo follow up with CBC/Diff Start: 10-15-2024 End: 10-15-2024 ambulatory 10/15/2024 10:00 AM EST Results Only [facility] [place] [facility] [address] [place] [address] CBC/DIff [facility] Comment on above: CBC/DIff Start: 08-18-2024 Advance Directive Discussion Advance Directive Discussion [facility] Start: 04-18-2024 Influenza vaccination Influenza Vacc ine (#1) [facility] Start: 02-15-2024 DIABETES SCREEN DIABETES SCREEN [facility] Start: 08-18-2023 Advance Directive Discussion Advance Directive Discussion [facility] Start: 08-18-2023 Depression Assessment Depression Ass essment [facility] Start: 04-18-2023 Influenza vaccination [facility] Start: 03-27-2023 End: 05-27-2023 CBC W Auto Differential panel - Blood CBC + DIFF Lab STAT CLL (chronic lymphocytic leukemia) (HCC) Expected: 03/27/2023, Expires: 05/27/2023 [facility] Work Phone: Comment on above: Expected: 03/27/2023 , Expires: 05/27/2023 Start: 03-27-2023 End: 05-27-2023 Comprehensive metabolic 2000 panel - Serum or Plasma COMP METABOLIC PANEL Lab STAT CLL (chronic lymphocytic leukemia) ([facility]) Expected: 03/27/2023, Expires: 05/27/2023 [facility] Work Phone: Comment on above: Expected: 03/27/2023 , Expires: 05/27/2023 Start: 03-27-2023 End: 05-27-2023 Lactate dehydrogenase [Enzymatic activity/volume] in Serum or Plasma LD LACTATE DEHYDRO Lab Routine CLL (chronic lymphocytic leukemia) ([facility]) Expected: 03/27/2023, Expires: 05/27/2023 [facility] Work Phone: Comment on above: Expected: 03/27/2023 , Expires: 05/27/2023 Start: 10-16-2022 RSV Vaccine (1 - 1-d ose 75+ series) RSV Vaccine (1 - 1-dose 75+ series) [facility] Start: 08-18-2022 ADVANCE DIRECTIVE DISCUSSION ADVANCE DIRECTIVE DISCUSSION [facility] Start: 08-18-2022 DEPRESSION ASSESSMENT DEPRESSION ASS ESSMENT [facility] Start: 04-18-2022 Influenza vaccination INFLUENZA (#1) [facility] Start: 02-14-2022 End: 04-16-2022 CBC W Auto Differential panel - Blood CBC + DIFF Lab STAT CLL (chronic lymphocytic leukemia) ([facility]) Expected: 02/14/2022, Expires: 04/16/2022 [facility] Work Phone: Comment on above: Expected: 02/14/2022 , Expires: 04/16/2022 Start: 02-14-2022 End: 04-16-2022 Comprehensive metabolic 2000 panel - Serum or Plasma COMP METABOLIC PANEL Lab Routine CLL (chronic lymphocytic leukemia) ([facility]) Expected: 02/14/2022, Expires: 04/16/2022 [facility] Work Phone: Comment on above: Expected: 02/14/2022 , Expires: 04/16/2022 Start: 02-14-2022 End: 04-16-2022 Lactate dehydrogenase [Enzymatic activity/volume] in Serum or Plasma LD LACTATE DEHYDRO Lab Routine CLL (chronic lymphocytic leukemia) ([facility]) Expected: 02/14/2022, Expires: 04/16/2022 [facility] Work Phone: Comment on above: Expected: 02/14/2022 , Expires: 04/16/2022 Start: 08-18-2021 ADVANCE DIRECTIVE DISCUSSION ADVANCE DIRECTIVE DISCUSSION [facility] Start: 08-02-2019 Patient Education [facility]. Start: 2007 RSV Vaccine (1 - 1-d ose 60+ series) RSV Vaccine (1 - 1-dose 60+ series) [facility] Start: 10-16-1992 COLOGUARD (FIT-DNA) COLOGUARD (FIT-D NA) [facility] Start: 10-16-1992 Colonoscopy COLONOSCOPY [facility] Start: 10-16-1992 COLORECTAL CANCER SCREENING COLORECTAL CANCER SCREENING [facility] Start: 10-16-[address] COLONOGRAPHY [facility] Start: 10-16-1992 FECAL OCCULT BLOOD FECAL OCCULT BLOO D [facility] Start: 10-16-1992 Screening for malign ant neoplasm of colon [facility] Start: 10-16-1992 SIGMOIDOSCOPY SIGMOIDOSCOPY [facility] Start: 10-16-1982 Lipid panel Lipid Screening [facility] Start: 10-16-1982 LIPID SCREEN LIPID SCREEN [facility] Start: 10-16-1966 Pneumococcal Vaccine : 50+ (1 of 2 - PCV) Pneumococcal Vaccine: 50+ (1 of 2 - PCV) [facility] Start: 10-16-1966 SHINGRIX VACCINE (1 of 2) SHINGRIX VACCINE (1 of 2) [facility] Start: 10-16-1966 Urine microalbumin profile [facility] Start: 10-16-1965 Anxiety Screening Anxiety Screening [facility] Start: 10-16-1965 Depression Screening Depression Scre ening [facility] Start: 10-16-1965 HEPATITIS C SCREENING HEPATITIS C [facility] Start: 10-16-1965 Hepatitis C screening Hepatitis C [facility] Start: 1959 Adult depression screening assessment DEPRESSION SCREENING [facility] Start: 10-16-1953 Pneumococcal Vaccine : 65+ (1 of 2 - PCV) Pneumococcal Vaccine: 65+ (1 of 2 - PCV) [facility] Start: 10-16-1953 PNEUMOCOCCAL: 65+ (1 - PCV) PNEUMOCOCCAL: 65+ (1 - PCV) [facility] Start: 10-16-1952 COVID-19 VACCINE (#1) COVID-19 VACCI NE (#1) [facility] Start: 04-18-1948 COVID-19 VACCINE (#1) COVID-19 VACCI NE (#1) [facility] Hepatic function panel [facility] Lipid 1996 panel - S torin or Plasma [facility] [place] Heart Views W str ess and W radionuclide IV [facility] Immunizations Immunization Date Immunization Notes Care Provider Lilian [facility] influenza virus vaccine, unspecified formulation Zulema CISNEROS MD Work Phone: [facility]; [facility]. Comment on above: Refused. 08/02/2019 Payers Date Payer Category Payer Self-pay 2024 Unknown [id number] 2022 Unknown [id number] 2022 Private Health Insurance [id number] Unknown [id number] 2.16.8 [id number] Unknown [id number] 2.16.8 [id number] Unknown [id number] 2.16.8 [id number] Unknown [id number] 2.16.8 [id number] Unknown [id number] 2.16.8 [id number] Unknown [id number] 2.16.8 [id number] Unknown [id number] 2.16.8 [id number] Unknown [id number] 2.16.8 [id number] Social History Date Type Detail Facility Start: 08-09-2019 End: 10-07-2024 Tobacco smoking status NHIS Never smoked tobacco [facility] Start: 08-09-2019 Tobacco use and exposure Smokeless tobacco non-user [facility] Start: 1945 Sex Assigned At Not on file [facility] Start: 02-15-2022 End: 02-25-2022 Exposure to SARS-CoV-2 (event) Not sure [facility] Start: 02-25-2022 End: 03-27-2023 History of Social function [facility] Start: 02-25-2022 End: 03-27-2023 Tobacco use panel [facility] National Score (1-100), lower number is lower risk 28 [facility] Start: 03-27-2023 End: 10-15-2024 Alcohol intake Lifetime non-drinker (finding) [facility] Alcohol Use: Alcohol Use: ; N o Alcohol Use. [facility] Tobacco use: Tobacco use: ; N ever smoker. [facility]. Start: 1945 Male [facility] Start: 07-22-2019 Tobacco Use Tobacco Use [facility] Medical Equipment Procedure Code Equipment Code Equipment Origin al Text Equipment Identifier Dates MESH,3DMAX LEFT LG [id number] FDA Start: 07-27-2018 MESH,3DMAX RIGHT LG [id number] FDA Start: 07-27-2018 TACKERJIMENEZ STRAP FDA Start : 07-27-2018 Drug-eluting coronary artery stent, izi-pejexrhjhunkr-bw lymer-coated ()[id number] FDA Start: 04-15-2024 Drug-eluting coronary artery stent, nwd-[id number]-ho lymer-coated ()[id number] FDA Start: 04-15-2024 Drug-eluting coronary artery stent, kfx-jmnqztbdwddtx-nf lymer-coated ()[id number] FDA Start: 04-15-2024 Drug-eluting coronary artery stent, jbz-qqlgrfrnxgktl-yi lymer-coated ()[id number] FDA Start: 04-15-2024 MESH,3DMAX LEFT LG [id number] FDA Start: 07-27-2018 MESH,3DMAX RIGHT LG [id number] FDA Start: 07-27-2018 TACKER,SECURE STRAP FDA Start : 07-27-2018 MESH,3DMAX LEFT LG [id number] FDA Start: 07-27-2018 MESH,3DMAX RIGHT LG [id number] FDA Start: 07-27-2018 TACKER,SECURE STRAP FDA Start : 07-27-2018 Clinical Notes 02-25-2022 to 05-31-2025 Note Date & Type Note Facility 05-31-2025 Progress note Note Date/Time May 31, 2025 1:58pm [facility] [address] [place] [address] OFFICE VISIT Date of Service: 05/31/25 MR#: [id number] Acct: [id number] Name: SHAGGY CASAS Rep #: [id number] : 1945 Provider: Dr. Jordon Mcgarry MD Age/Sex: 79/M Location: [facility] Status: Signed HPI HPI History of Present Illness Details: This pleasant gentleman with history of coronary artery disease with percutaneous intervention to a subtotally occluded RCA in March of last year ishere for a follow-up visit. He ran out of his medications last month and has therefore not been taking his metoprolol or atorvastatin. He however has been taking his aspirin and Plavix. According to him, he has had a couple of episodes of chest pains since then. Not very specific about it. Denies any shortness of breath. No orthopnea PND. No ankle edema. Intake Vital Signs 02/22/25 14:40 05/31/25 13:26 Height 5 ft 4 in 5 ft 4 in Weight: 141 lb BMI 24.2 BP 165/88 H Blood Pressure Location Lt brachial Position Sitting Respiration 18 Pulse 84 Pulse Source Monitor Intake Visit Reasons: medication refills [employer] Principal Required: No Accompanied by: Daughter Is patient in pain?: No Allergies No Known Allergies Allergy (Verified 05/31/25 13:31) Medications ?Medication ?Instructions ?Recorded ?Confirmed ?Type aspirin 81 mg tablet,delayed 81 mg PO BREAKFAST #90 ta bs 05/12/24 05/20/25 Rx release clopidogrel 75 mg tablet (Plavix) 75 mg PO QDAY #90 ta bs 05/12/24 05/20/25 Rx metoprolol tartrate 25 mg tablet 12.5 mg (1/2 x 25 mg) PO BID #90 05/12/24 05/20/25 Rx tabs atorvastatin 40 mg tablet 40 mg PO QHS #90 TABLETS 04/1105/20/25 Rx Have you fallen in the past year?: No PFSH Medical History Hyperlipidemia SVT (supraventricular tachycardia) CLL (chronic lymphocytic leukemia) Urinary retention Left inguinal hernia Recurrent right inguinal hernia Arthritis Surgical History Status post coronary angioplasty (04/15/24) History of hernia repair (~07/2018) History of nasal surgery Hx of bone graft Hx of right inguinal hernia repair Hx of appendectomy Family History Mother Breast cancer Social History household members: spouse housing: house Smoking Status: Never smoker second hand exposure: No alcohol intake: never substance use type: does not use caffeine: Yes what type of physical activity do you participate in: bicycling frequency: 5-6 times per week seatbelt use: always ROS Const Const: Negative for fatigue or weakness Eyes Eyes: Negative for change in vision ENT ENT: Negative for dizziness or balance problems Cardio Chest Pain: Yes Frequency: weekly Character: dull Location: mid sternal Duration: minutes Palpitations: No Edema: Right (history of broken leg) Resp Respiratory: Negative for SOB with activity, SOB at rest or SOB orthopnea\SOB lying down GI GI: Negative nausea or heartburn Musc Musc: Negative for balance problems Neuro Neuro: Negative for dizziness, lightheadedness, near syncope, syncope or weakness Endo Endo: Negative for fatigue Cardiology Exam Const Appearance: comfortable and no acute distress Nutritional Appearance: well nourished Neck Neck: no JVD Carotids: Negative bruit Chest Auscultation: Bilateral: Clear to Auscultation Cardio Rate: regular rate Rhythm: regular rhythm Heart sounds: S1 normal and S2 normal Neuro General: patient alert, patient awake and patient oriented x3 Extremities Lower Extremity Edema: None: Bilateral Supplemental Info Supplemental Information Labs: LDL Cholesterol, (0-130) 98 mg/dL HDL Cholesterol, (40-) 42 mg/dL Cholesterol, (<=200) 108 mg/dL Triglycerides, (-199) 63 mg/dL Diagnostics: Electrocardiogram Stress Echocardiogram Cardiac Catheterization Chest X-Ray Chest CTA Abdomen/Pelvis CT Past Visits: Cardiology Visit Today Assessment and Plan Assessment and Plan (1) CAD (coronary artery disease): Status: Chronic Qualifiers: Coronary Disease-Associated Artery/Lesion type: [place] artery [place] vs. transplanted heart: [place] heart Associated angina: without angina Qualified Code(s): I25.10 - Atherosclerotic heart disease of [place] coronary artery without angina pectoris Comment: 70% Prox Mid, 80% Mid LAD, 60% Prox LCX; PCI to RCA Plan: Continue aspirin and Plavix. Chest pains twice since April. Resume metoprolol. Start amlodipine. Check Lexiscan stress Myoview. (2) History of coronary artery stent placement: Status: Chronic Plan: See #1 above. Continue aspirin and clopidogrel. (3) Hypertension: Status: Chronic Plan: Resume metoprolol. Start on amlodipine. Check blood pressure in office in 7 to10 days time. (4) Dyslipidemia: Status: Chronic Plan: Resume atorvastatin. (5) CLL (chronic lymphocytic leukemia): Status: Chronic Plan: As per oncology. Plan Details Follow Up: 6 Months Coding Level of Care Code Off vis,est,level 4 Diagnoses Coronary artery disease involving [place] coronary artery of [place] heart withoutangina pectoris I25.10 Coronary Disease-Associated Artery/Lesion type: [place] artery [place] vs. transplanted heart: [place] heart Associated angina: without angina History of coronary artery stent placement Z95.5 Hypertension I10 Dyslipidemia E78.5 CLL (chronic lymphocytic leukemia) C91.90 Coding Level of Care Code Off vis,est,level 4 Diagnoses Coronary artery disease involving [place] coronary artery of [place] heart withoutangina pectoris I25.10 Coronary Disease-Associated Artery/Lesion type: [place] artery [place] vs. transplanted heart: [place] heart Associated angina: without angina History of coronary artery stent placement Z95.5 Hypertension I10 Dyslipidemia E78.5 CLL (chronic lymphocytic leukemia) C91.90 Clinical Quality Measures Falls Risk Screening/Assistive Devices Have you fallen in the past year?: No 05/31/25 1358 <Electronically signed by Humza Mcgarry MD> Date _ Humza Mcgarry MD [facility] Signature: Date (if applicable) CC: Dr. Anthony Cisneros MD ~ [facility] [employer] Work Phone: 1(797) 814-403410-14-2025 [facility] [address] [place] [address]. [address] [place], [place] [address] OFFICE VISIT Date of Service: 05/31/25 MR#: [id number] Acct: [id number] Name: SHAGYG CASAS Rep #: [id number] : 1945 Provider: Dr. Jordon Mcgarry MD Age/Sex: 79/M Location[place] [facility] Status: Signed HPI HPI History of Present Illness Details: This pleasant gentleman with history of coronary artery disease with percutaneous intervention to asubtotally occluded RCA in March of last year ishere for a follow-up visit. He ran out of his medications last month and has therefore not been taking his metoprolol or atorvastatin. He however has been taking his aspirin and Plavix. According to him, he has had a couple of episodes of chest painssince then. Not very specific about it. Denies any shortness of breath. No orthopnea PND. No ankle edema. Intake Vital Signs 02/22/25 14:40 05/31/25 13:26 Height 5 ft 4 in 5 ft 4 in Weight: 141 lb BMI 24.2 BP 165/88 H Blood Pressure Location Lt brachial Position Sitting Respiration 18 Pulse 84 Pulse Source Monitor Intake Visit Reasons: medication refills [employer] Principal Required: No Accompanied by: Daughter Is patient in pain?: No Allergies No Known Allergies Allergy (Verified 05/31/25 13:31) Medications ?Medication ?Instructions ?Recorded ?Confirmed ?Type aspirin 81 mg tablet,delayed 81 mg PO BREAKFAST #90 ta bs 05/12/24 05/20/25 Rx release clopidogrel 75 mg tablet (Plavix) 75 mg PO QDAY #90 ta bs 05/12/24 05/20/25 Rx metoprolol tartrate 25 mg tablet 12.5 mg (1/2 x 25 mg) PO BID #90 05/12/24 05/20/25 Rx tabs atorvastatin 40 mg tablet 40 mg PO QHS #90 TABLETS 04/1105/20/25 Rx Have you fallen in the past year?: No PFSH Medical History Hyperlipidemia SVT (supraventricular tachycardia) CLL (chronic lymphocytic leukemia) Urinary retention Left inguinal hernia Recurrent right inguinal hernia Arthritis Surgical History Status post coronary angioplasty (04/15/24) History of hernia repair (~07/2018) History of nasal surgery Hx of bone graft Hx of right inguinal hernia repair Hx of appendectomy Family History Mother Breast cancer Social History household members: spouse housing: house Smoking Status: Never smoker second hand exposure: No alcohol intake: never substance use type: does not use caffeine: Yes what type of physical activity do you participate in: bicycling frequency: 5-6 times per week seatbelt use: always ROS Const Const: Negative for fatigue or weakness Eyes Eyes: Negative for change in vision ENT ENT: Negative for dizziness or balance problems Cardio Chest Pain: Yes Frequency: weekly Character: dull Location: mid sternal Duration: minutes Palpitations: No Edema: Right (history of broken leg) Resp Respiratory: Negative for SOB with activity, SOB at rest or SOB orthopnea\SOB lying down GI GI: Negative nausea or heartburn Musc Musc: Negative for balance problems Neuro Neuro: Negative for dizziness, lightheadedness, near syncope, syncope or weakness Endo Endo: Negative for fatigue Cardiology Exam Const Appearance: comfortable and no acute distress Nutritional Appearance: well nourished Neck Neck: no JVD Carotids: Negative bruit Chest Auscultation: Bilateral: Clear to Auscultation Cardio Rate: regular rate Rhythm: regular rhythm Heart sounds: S1 normal and S2 normal Neuro General: patient alert, patient awake and patient oriented x3 Extremities Lower Extremity Edema: None: Bilateral Supplemental Info Supplemental Information Labs: LDL Cholesterol, (0-130) 98 mg/dL HDL Cholesterol, (40-) 42 mg/dL Cholesterol, (<=200) 108 mg/dL Triglycerides, (-199) 63 mg/dL Diagnostics: Electrocardiogram Stress Echocardiogram Cardiac Catheterization Chest X-Ray Chest CTA Abdomen/Pelvis CT Past Visits: Cardiology Visit Today Assessment and Plan Assessment and Plan (1) CAD (coronary artery disease): Status: Chronic Qualifiers: Coronary Disease-Associated Artery/Lesion type: [place] artery [place] vs. transplanted heart: [place] Associated angina: without angina Qualified Code(s): I25.10 - Atherosclerotic heart disease of [place] coronary artery without angina pectoris Comment: 70% Prox Mid, 80% Mid LAD, 60% Prox LCX; PCI to RCA Plan: Continue aspirin and Plavix. Chest pains twice since April. Resume metoprolol. Start amlodipine. Check Lexiscan stress Myoview. (2) History of coronary artery stent placement: Status: Chronic Plan: See #1 above. Continue aspirin and clopidogrel. (3) Hypertension: Status: Chronic Plan: Resume metoprolol. Start on amlodipine. Check blood pressure in office in 7 to10 days time. (4) Dyslipidemia: Status: Chronic Plan: Resume atorvastatin. (5) CLL (chronic lymphocytic leukemia): Status: Chronic Plan: As per oncology. Plan Details Follow Up: 6 Months Coding Level of Care Code Off vis,est,level 4 Diagnoses Coronary artery disease involving [place] coronary artery of [place] heart withoutangina pectoris I25.10 Coronary Disease-Associated Artery/Lesion type: [place] artery [place] vs. transplanted heart: [place] heart Associated angina: without angina History of coronary artery stent placement Z95.5 Hypertension I10 Dyslipidemia E78.5 CLL (chronic lymphocytic leukemia) C91.90 Coding Level of Care Code Off vis,est,level 4 Diagnoses Coronary artery disease involving [place] coronary artery of [place] heart withoutangina pectoris I25.10 Coronary Disease-Associated Artery/Lesion type: [place] artery [place] vs. transplanted heart: [place] heart Associated angina: without angina History of coronary artery stent placement Z95.5 Hypertension I10 Dyslipidemia E78.5 CLL (chronic lymphocytic leukemia) C91.90 Clinical Quality Measures Falls Risk Screening/Assistive Devices Have you fallen in the past year?: No 05/31/25 1358 > Date _ Humza Mcgarry MD Cosigner Signature: Date (if applicable) CC: Dr. Anthony Cisneros MD ~ [facility]07-08-2025 Evaluation note* Diagnosis Onset Date Resolution Status Admit Date CAD (coronary artery disease) chronic February 22, 2025 2:31pm Hyperlipidemia chronic February 22, 2025 2:31pm Status post coronary angioplasty April 15, 2024 chronic February 22, 2025 2:31pm SVT (supraventricular tachycardia) resolved February 22, 2025 2:31pm [facility] Work Phone: 1(236) 455-525707-08-2025 Evaluation note* Diagnosis Onset Date Resolution Status Admit Date CAD (coronary artery disease) chronic February 22, 2025 2:31pm Hyperlipidemia chronic February 22, 2025 2:31pm Status post coronary angioplasty April 15, 2024 chronic February 22, 2025 2:31pm SVT (supraventricular tachycardia) resolved February 22, 2025 2:31pm CAD (coronary artery disease) chronic May 31 1:21pm CLL (chronic lymphocytic leukemia) chronic May 31 1:21pm Dyslipidemia chronic May 1:21pm History of coronary artery stent placement chronic May 31 1:21pm Hypertension chronic May 1:21pm [facility] Work Phone: 1(141) 887-599003-13-2025 Telephone encounter Note* Telephone Encounter - Leah Ingram LPN - 10/28/2024 1:51 PM EDT Pt. Notified of lab results, copy of results mailed to pts. Home. Leah Rodriges BRIANNA Ingram [facility]03-13-2025 Miscellaneous Notes* Telephone Encounter - Leah Ingram LPN - 10/28/2024 1:51 PM EDT Pt. Notified of lab results, copy of results mailed to pts. Home. Leah Antelmo BRIANNA Ingram * Telephone Encounter - Toshia Booker APRN.CNP - 10/28/2024 12:49 PM EDT Please inform pt. that his WBC's are overall stable over the past few years. Hgb is down some. Will repeat labs and monitor as scheduled. Please mail CBC to pt. Thank you. Toshia Booker APRN.CNP * Telephone Encounter - Leonie Francois - 10/22/2024 10:55 AM EST Patient requesting 10/15 lab results [facility] Telephone encounter Note * Telephone Encounter - Toshia Booker APRN.CNP - 10/28/2024 12:49 PM EDT Please inform pt. that his WBC's are overall stable over the past few years. Hgb is down some. Will repeat labs and monitor as scheduled. Please mail CBC to pt. Thank you. Toshia Booker APRN.CNP [facility] Work Phone: 1(976) 562-295703-07-2025 Telephone encounter Note* Telephone Encounter - Leonie Francois - 10/22/2024 10:55 AM EST Patient requesting 10/15 lab results [facility] Work Phone: 1(561) 730-703103-03-2025 Telephone encounter Note* Telephone Encounter - Jessica Gandhi - 10/18/2024 3:04 PM EST This pt has been scheduled as directed. Jessica Gandhi [facility]03-03-2025 Miscellaneous Notes* Telephone Encounter - Jessica Gandhi - 10/18/2024 3:04 PM EST This pt has been scheduled as directed. Jessica Gandhi * Telephone Encounter - Toshia Booker APRN.CNP - 10/18/2024 1:58 PM EST Please schedule OV with CBC/diff in 6 months. Thank you. Toshia Booker APRN.CNP documented in this encounterCh[facility]03-[facility]-2025 Telephone encounter Note * Telephone Encounter - Toshia Booker APRN.CNP - 10/18/2024 1:58 PM EST Please schedule OV with CBC/diff in 6 months. Thank you. Toshia Booker APRN.CNP [facility] Work Phone: 1(740) 479-977802-28-2025 NoteHNO ID: [id number] Author: TOSHIA BOOKER APRN.CNP Service: ? Author Type: Nurse Practitioner Type: Progress Notes Filed: 10/15/2024 10:27 Note Text: Chief Complaint Patient presents with: Established Patient HPI: Shaggy Casas is a 78 year old male who presents here today for follow up CLL. Per Dr. Jo's previous note: H/o hernia repair. He was found to have lymphocytosis. He was referred to Dr. Gaming who confirmed his diagnosis of CLL. He had no painful adenopathy, early satiety, hepatosplenomegaly, anemia or thrombocytopenia. He denies fever, chills, night sweat, fatigue or weight loss. He has no family history of leukemia or lymphoma. He does not smoke tobacco or drink alcohol. At last visit pt. was having chest pain-was sent to ED/admitted/received 4 stents. Followed by [facility]. I feel better. Appetite:Good. Wt. stable. Energy level:Good. Denies fevers. I had a bug a week ago. It lasted about two days. Resp:denies cough or sob Cardiac:denies chest pain/palpitations-s/p 4 stents 2023-followed by [facility] GI:denies abd pain, n/v, moving bowels reguarly :denies dysuria/hematuria Extrem:denies pain Neuro:denies symptoms of neuropathy Skin:denies rashes/lesions Heme:denies bleeding The ROS is otherwise negative. Past medical history, appointments, medications, allergies reviewed. No changes. EXAM: BP 121/71 Pulse 62 Temp 37.1 ?C (98.7 ?F) (Temporal) Wt 62.6 kg (138 lb 0.1 oz) SpO2 91% BMI 24.45 kg/m? APPEARANCE Well appearing, alert, in no acute distress, well-hydrated, well nourished. HEART RRR with normal S1 and S2, no murmurs LUNG clear to auscultation LYMPH NODESNo cervical lymphadenopathy, No supraclavicular lymphadenopathy, and No axillary lymphadenopathy. ABDOMEN bowel sounds normoactive, soft, non-tender EXTREMITIES No edema NEURO Awake, alert and oriented x 3, Normal gait, and No involuntary motions. SKIN Skin color, texture, turgor normal, no suspicious rashes or lesions LABS: Pending ASSESSMENT/PLAN: 1. CLL (chronic lymphocytic leukemia) (HCC) - ICD9: 204.10, ICD10: C91.10 URIOSTEGUI stage 0 chronic lymphocytic leukemia (CD5 positive, CD23 positive CD38 negative with Light chain restriction) Asymptomatic. - No concerning findings on exam. - CBC pending. - Continue follow up with DERM/PCP/Cards. - Follow up pending CBC/diff today. - Pt. aware to call office with any questions/concerns. The patient indicates understanding of these issues and agrees with the plan. All documentation from previous visit of 04/13/24-Drs. Cancino/Deysi/myself was copied and pasted, documentation has been reviewed and edited as necessary for today's visit. [facility]ia Booker [facility] History of Present illness Narrative* Toshia Booker APRN.WILL - 10/15/2024 9:59 AM EST Chief Complaint Patient presents with: Established Patient HPI: Shaggy Casas is a 78 year old male who presents here today for follow up CLL. Per Dr. Jo's previous note: H/o hernia repair. He was found to have lymphocytosis. He was referred to Dr. Gaming who confirmed his diagnosis of CLL. He had no painful adenopathy, early satiety, hepatosplenomegaly, anemia or thrombocytopenia. He denies fever, chills, night sweat, fatigue or weight loss. He has no family history of leukemia or lymphoma. He does not smoke tobacco or drink alcohol. At last visit pt. was having chest pain-was sent to ED/admitted/received 4 stents. Followed by [facility]. I feel better. Appetite:Good. Wt. stable. Energy level:Good. Denies fevers. I had a bug a week ago. It lasted about two days. Resp:denies cough or sob Cardiac:denies chest pain/palpitations-s/p 4 stents 2023-followed by [facility] GI:denies abd pain, n/v, moving bowels reguarly :denies dysuria/hematuria Extrem:denies pain Neuro:denies symptoms of neuropathy Skin:denies rashes/lesions Heme:denies bleeding The ROS is otherwise negative. Past medical history, appointments, medications, allergies reviewed. No changes. EXAM: BP 121/71 Pulse 62 Temp 37.1 C (98.7 F) (Temporal) Wt 62.6 kg (138 lb 0.1 oz) SpO2 91% BMI 24.45 kg/m APPEARANCE Well appearing, alert, in no acute distress, well-hydrated, well nourished. HEART RRR with normal S1 and S2, no murmurs LUNG clear to auscultation LYMPH NODESNo cervical lymphadenopathy, No supraclavicular lymphadenopathy, and No axillary lymphadenopathy. ABDOMEN bowel sounds normoactive, soft, non-tender EXTREMITIES No edema NEURO Awake, alert and oriented x 3, Normal gait, and No involuntary motions. SKIN Skin color, texture, turgor normal, no suspicious rashes or lesions LABS: Pending ASSESSMENT/PLAN: 1. CLL (chronic lymphocytic leukemia) (HCC) - ICD9: 204.10, ICD10: C91.10 URIOSTEGUI stage 0 chronic lymphocytic leukemia (CD5 positive, CD23 positive CD38 negative with Light chain restriction) Asymptomatic. - No concerning findings on exam. - CBC pending. - Continue follow up with DERM/PCP/Cards. - Follow up pending CBC/diff today. - Pt. aware to call office with any questions/concerns. The patient indicates understanding of these issues and agrees with the plan. All documentation from previous visit of 04/13/24-Drs. Cancino/Deysi/myself was copied and pasted, documentation has been reviewed and edited as necessary for today's visit. Toshia Booker APRN.WILL documented in this encounterCh[facility]-27-[facility]24 NoteHNO ID: [id number] Author: TOSHIA BOOKER APRN.WILL Service: ? Author Type: Nurse Practitioner Type: Progress Notes Filed: 04/14/2024 08:47 Note Text: Chief Complaint Patient presents with: Established Patient HPI: Shaggy Casas is a 78 year old male who presents here today for follow up CLL. Per Dr. Jo's previous note: H/o hernia repair. He was found to have lymphocytosis. He was referred to Dr. Gaming who confirmed his diagnosis of CLL. He had no painful adenopathy, early satiety, hepatosplenomegaly, anemia or thrombocytopenia. He denies fever, chills, night sweat, fatigue or weight loss. He has no family history of leukemia or lymphoma. He does not smoke tobacco or drink alcohol. I've been having chest pain on and off for the past two weeks. I have taken my heart rate and I feel like I'm skipping beats. Appetite:Good. Energy level:Good. Denies fevers or recent illness. Resp:denies cough or sob Cardiac:+chest pain, denies palpitations/neck/arm pain GI:denies abd pain, n/v, moving bowels reguarly :denies dysuria/hematuria Extrem:denies pain Neuro:denies symptoms of neuropathy Skin:denies rashes Heme:denies bleeding The ROS is otherwise negative. Past medical history, appointments, medications, allergies reviewed. No changes. EXAM: BP 117/71 Pulse 64 Temp 36.2 ?C (97.2 ?F) (Temporal) Wt 63.2 kg (139 lb 5.3 oz) SpO2 98% BMI 24.68 kg/m? APPEARANCE Well appearing, alert, in no acute distress, well-hydrated, well nourished. HEART irreg, no murmurs LUNG clear to auscultation LYMPH NODES No cervical lymphadenopathy, No supraclavicular lymphadenopathy, and No axillary lymphadenopathy. ABDOMEN bowel sounds normoactive, soft, non-tender EXTREMITIES No edema NEURO Awake, alert and oriented x 3, Normal gait, and No involuntary motions. SKIN Skin color, texture, turgor normal, no suspicious rashes or lesions LABS: Latest Ref Rng 02/25/2022 03/27/2023 09/26/2023 04/13/2024 WBC 3.70 - 11.00 k/uL 63.17 (H) 65.67 (H) 67.58 (H) 58.64 (H) (P) RBC 4.20 - 6.00 m/uL 4.05 (L) 4.46 4.37 4.09 (L) (P) Hemoglobin 13.0 - 17.0 g/dL 13.1 14.1 13.9 13.2 (P) Hematocrit 39.0 - 51.0 % 40.0 43.5 42.6 40.1 (P) MCV 80.0 - 100.0 fL 98.8 97.5 97.5 98.0 (P) MCH 26.0 - 34.0 pg 32.3 31.6 31.8 32.3 (P) MCHC 30.5 - 36.0 g/dL 32.8 32.4 32.6 32.9 (P) RDW-CV 11.5 - 15.0 % 14.9 14.6 15.0 15.1 (H) (P) Platelet Count 150 - 400 k/uL 248 234 287 261 (P) MPV 9.0 - 12.7 fL 9.0 9.6 9.2 9.5 (P) NRBC /100 WBC 0.0 0.0 0.0 Absolute nRBC <0.01 k/uL <0.01 <0.01 <0.01 Neut% % 10.0 12.0 8.4 Abs Neut (ANC) 1.45 - 7.50 k/uL 6.32 7.88 (H) 5.63 Lymph% % 89.0 88.0 90.4 Abs Lymph 1.00 - 4.00 k/uL 56.22 (H) 57.79 (H) 61.11 (H) Tift% % 1.0 0.0 0.8 Abs Tift <0.87 k/uL 0.63 0.00 0.53 Eosin% % 0.0 0.0 0.1 Abs Eosin <0.46 k/uL 0.00 0.00 0.10 Baso% % 0.0 0.0 0.1 Abs Baso <0.11 k/uL 0.00 0.00 0.06 Platelet Estimate Adequate Adequate Red Cell Morph Reviewed: unremarkable Reviewed: unremarkable DTYPE Manual Manual Auto Immature Gran % % 0.2 IMMATURE GRANS (ABS) <0.10 k/uL 0.15 (H) (P) Preliminary today. ASSESSMENT/PLAN: 1. CLL (chronic lymphocytic leukemia) ([facility]) - ICD9: 204.10, ICD10: C91.10 URIOSTEGUI stage 0 chronic lymphocytic leukemia (CD5 positive, CD23 positive CD38 negative with Light chain restriction) Asymptomatic. - No concerning findings on exam. - Reviewed prelim. CBC with pt. - Continue follow up with DERM and PCP for routine care. - Advised pt. to go to ED now for chest pain/irreg heart rate. - Follow up in 6 months with CBC/diff pending final lab today. - Pt. aware to call office with any questions/concerns. The patient indicates understanding of these issues and agrees with the plan. All documentation from previous visit of 09/26/23-Drs. Cancino/Deysi was copied and pasted, documentation has been reviewed and edited as necessary for today's visit. Toshia Booker APRN.[facility]ILLOhio[facility]-27-2024 History of Present illness Narrative* Toshia Booker APRN.DRY SAND MOLDER - 04/13/2024 1:24 PM EDT Chief Complaint Patient presents with: Established Patient HPI: Shaggy Casas is a 78 year old male who presents here today for follow up CLL. Per Dr. Jo's previous note: H/o hernia repair. He was found to have lymphocytosis. He was referred to Dr. Gaming who confirmed his diagnosis of CLL. He had no painful adenopathy, early satiety, hepatosplenomegaly, anemia or thrombocytopenia. He denies fever, chills, night sweat, fatigue or weight loss. He has no family history of leukemia or lymphoma. He does not smoke tobacco or drink alcohol. I've been having chest pain on and off for the past two weeks. I have taken my heart rate and I feel like I'm skipping beats. Appetite:Good. Energy level:Good. Denies fevers or recent illness. Resp:denies cough or sob Cardiac:+chest pain, denies palpitations/neck/arm pain GI:denies abd pain, n/v, moving bowels reguarly :denies dysuria/hematuria Extrem:denies pain Neuro:denies symptoms of neuropathy Skin:denies rashes Heme:denies bleeding The ROS is otherwise negative. Past medical history, appointments, medications, allergies reviewed. No changes. EXAM: BP 117/71 Pulse 64 Temp 36.2 C (97.2 F) (Temporal) Wt 63.2 kg (139 lb 5.3 oz) SpO2 98% BMI 24.68 kg/m APPEARANCE Well appearing, alert, in no acute distress, well-hydrated, well nourished. HEART irreg, no murmurs LUNG clear to auscultation LYMPH NODES No cervical lymphadenopathy, No supraclavicular lymphadenopathy, and No axillary lymphadenopathy. ABDOMEN bowel sounds normoactive, soft, non-tender EXTREMITIES No edema NEURO Awake, alert and oriented x 3, Normal gait, and No involuntary motions. SKIN Skin color, texture, turgor normal, no suspicious rashes or lesions LABS: Latest Ref Rng 02/25/2022 03/27/2023 09/26/2023 04/13/2024 WBC 3.70 - 11.00 k/uL 63.17 (H) 65.67 (H) 67.58 (H) 58.64 (H) (P) RBC 4.20 - 6.00 m/uL 4.05 (L) 4.46 4.37 4.09 (L) (P) Hemoglobin 13.0 - 17.0 g/dL 13.1 14.1 13.9 13.2 (P) Hematocrit 39.0 - 51.0 % 40.0 43.5 42.6 40.1 (P) MCV 80.0 - 100.0 fL 98.8 97.5 97.5 98.0 (P) MCH 26.0 - 34.0 pg 32.3 31.6 31.8 32.3 (P) MCHC 30.5 - 36.0 g/dL 32.8 32.4 32.6 32.9 (P) RDW-CV 11.5 - 15.0 % 14.9 14.6 15.0 15.1 (H) (P) Platelet Count 150 - 400 k/uL 248 234 287 261 (P) MPV 9.0 - 12.7 fL 9.0 9.6 9.2 9.5 (P) NRBC /100 WBC 0.0 0.0 0.0 Absolute nRBC <0.01 k/uL <0.01 <0.01 <0.01 Neut% % 10.0 12.0 8.4 Abs Neut (ANC) 1.45 - 7.50 k/uL 6.32 7.88 (H) 5.63 Lymph% % 89.0 88.0 90.4 Abs Lymph 1.00 - 4.00 k/uL 56.22 (H) 57.79 (H) 61.11 (H) Tift% % 1.0 0.0 0.8 Abs Tift <0.87 k/uL 0.63 0.00 0.53 Eosin% % 0.0 0.0 0.1 Abs Eosin <0.46 k/uL 0.00 0.00 0.10 Baso% % 0.0 0.0 0.1 Abs Baso <0.11 k/uL 0.00 0.00 0.06 Platelet Estimate Adequate Adequate Red Cell Morph Reviewed: unremarkable Reviewed: unremarkable DTYPE Manual Manual Auto Immature Gran % % 0.2 IMMATURE GRANS (ABS) <0.10 k/uL 0.15 (H) (P) Preliminary today. ASSESSMENT/PLAN: 1. CLL (chronic lymphocytic leukemia) (HCC) - ICD9: 204.10, ICD10: C91.10 URIOSTEGUI stage 0 chronic lymphocytic leukemia (CD5 positive, CD23 positive CD38 negative with Light chain restriction) Asymptomatic. - No concerning findings on exam. - Reviewed prelim. CBC with pt. - Continue follow up with DERM and PCP for routine care. - Advised pt. to go to ED now for chest pain/irreg heart rate. - Follow up in 6 months with CBC/diff pending final lab today. - Pt. aware to call office with any questions/concerns. The patient indicates understanding of these issues and agrees with the plan. All documentation from previous visit of 09/26/23-Drs. Cancino/Deysi was copied and pasted, documentationhas been reviewed and edited as necessary for today's visit. Toshia Booker APRN.CNP documented in this encounterCh[facility]ic[facility]02-14-2024 Miscellaneous Notes* Telephone Encounter - La Nena Mcconnell - 10/01/2023 9:12 AM EST I called and let Shaggy know the below information and he stated understanding. I schedule his lab work and 6 month follow-up with him. [facility]. La Nena Freeman * Telephone Encounter - Toshia Booker APRN.CNP - 10/01/2023 8:55 AM EST Please inform pt. that his labs are stable. CBC/OV in 6 months. Thank you. Toshia Booker APRN.CNP documented in this encounterChillic[facility]02-09-2024 History of Present illness Narrative* Toshia Booker APRN.CNP - 09/26/2023 12:06 PM EST Chief Complaint Patient presents with: Established Patient HPI: Shaggy Casas is a 77 year old male who presents here today for follow up CLL. Per Dr. Jo's previous note: H/o hernia repair. He was found to have lymphocytosis. He was referred to Dr. Gaming who confirmed his diagnosis of CLL. He had no painful adenopathy, early satiety, hepatosplenomegaly, anemia or thrombocytopenia. He denies fever, chills, night sweat, fatigue or weight loss. He has no family history of leukemia or lymphoma. He does not smoke tobacco or drink alcohol. Has been followed by DERM-recent lesion removed by Fabiana Ventura. No new concerns today. Appetite:Good. Energy level:Good. Denies fevers or recent illness.. Resp:denies cough or sob Cardiac:denies chest pain/palpitations GI:denies abd pain, n/v, moving bowels reguarly :denies dysuria/hematuria Extrem:denies pain Neuro:denies symptoms of neuropathy Skin:denies rashes Heme:denies bleeding The ROS is otherwise negative. Past medical history, appointments, medications, allergies reviewed. No changes. EXAM: BP 144/79 Pulse 70 Temp 36.9 C (98.4 F) (Oral) Ht 160 cm (5' 3) Wt 64.4 kg (142 lb) [id number]% BMI 25.15 kg/m APPEARANCE Well appearing, alert, in no acute distress, well-hydrated, well nourished. HEART RRR with normal S1 and S2, no murmurs LUNG clear to auscultation LYMPH NODES No cervical lymphadenopathy, No supraclavicular lymphadenopathy, and No axillary lymphadenopathy. ABDOMEN bowel sounds normoactive, soft, non-tender EXTREMITIES No edema NEURO Awake, alert and oriented x 3, Normal gait, and No involuntary motions. SKIN Skin color, texture, turgor normal, no suspicious rashes or lesions LABS: Pending ASSESSMENT/PLAN: 1. CLL (chronic lymphocytic leukemia) (HCC) - ICD9: 204.10, ICD10: C91.10 URIOSTEGUI stage 0 chronic lymphocytic leukemia (CD5 positive, CD23 positive CD38 negative with Light chain restriction) Asymptomatic. - No concerning findings on exam. - Labs pending. - Continue follow up with DERM and PCP for routine care. - Follow up pending today's labs. - Pt. aware to call office with any questions/concerns. The patient indicates understanding of these issues and agrees with the plan. All documentation from previous visit of 03/27/23-Drs. Cancino/Deysi was copied and pasted, documentation has been reviewed and edited as necessary for today's visit. Toshia Booker APRN.WILL documented in this encounterChillic[facility]08-10-2023 History of Present illness Narrative* Anatoliy Jo DO - 03/27/2023 12:05 PM EDT DIAGNOSIS: Chronic lymphatic leukemia. Per Dr. Cancino's most recent office visit note. Reviewed, updated and edited by me today as necessary. HPI: The patient is a 77-year-old male who presented for a hernia repair. He was found to have lymphocytosis. He was referred to Dr. Gaming who confirmed his diagnosis of CLL. He had no painful adenopathy, early satiety, hepatosplenomegaly, anemia or thrombocytopenia. He denies fever, chills, night sweat, fatigue or weight loss. He has no family history of leukemia or lymphoma. He does not smoke tobacco or drink alcohol. Interim history: Appetite normal. No acute illnesses since last seen. 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 Urinates about every 2-3 hours at night. Never had colonoscopy. Has slowly enlarging lesion back of scalp. Family history: Mother--Metastatic breast cancer. Son age of 25 from NHL. REVIEW OF SYSTEMS: CONSTITUTIONAL: No fevers, chills, nightsweats, unintended weight loss HEENT: Denies frequent or severe heaches, nasal congestion/sinus symptoms, problematic allergy problems. EYES: No diplopia or blurry vision. CARDIOVASCULAR: No chest pain, dyspnea, palpitations, orthopnea, PND, ankle edema. PULM: No dyspnea, unexplained cough. GI: No dysphagia/odynophagia, problematic reflux, constipation, diarrhea, changes in stool habits, hematochezia, melena. : No new urinary complaints, including dysuria, gross hematuria or pyuria. NEURO: No new balance problems, peripheral weakness/paresthesias or numbness of concern. MUSC-SKEL: No new joint pain, swelling, or erythema. PSY: No concerns regarding depression, anxiety or panic. INTEGUMENTARY: No new skin changes (rash, new or changing mole, new growth) PHYSICAL EXAM: Vitals: Blood pressure 124/73, pulse 74, resp. rate 16, height 160 cm (5' 2.99), weight 63.5 kg (140 lb), SpO2 95 %. Well-appearing and in no acute distress. EYES: Sclerae are anicteric bilaterally. LYMPHATIC: There is no palpable cervical, supraclavicular, axillary adenopathy. RESPIRATORY: Inspiratory breath sounds are of normal intensity in all dang. No rales, wheezes or rhonchi. CARDIOVASCULAR: Rhythm is regular. ABDOMEN: The abdomen is nondistended. No splenomegaly or hepatomegaly. No tenderness. Extremities: No swelling or edema. SKIN: Soft raised erythematous lesion posterior scalp with irregular borders measuring 1.5 x 1 cm. LABORATORY DATA: Component Latest Ref Rng & Units 02/14/2021 02/25/2022 03/27/2023 WBC 3.70 - 11.00 k/uL 57.08 (H) 63.17 (H) 65.67 (H) RBC 4.20 - 6.00 m/uL 4.22 4.05 (L) 4.46 Hemoglobin 13.0 - 17.0 g/dL 13.6 13.1 14.1 Hematocrit 39.0 - 51.0 % 41.4 40.0 43.5 MCV 80.0 - 100.0 fL 98.1 98.8 97.5 MCH 26.0 - 34.0 pg 32.2 32.3 31.6 MCHC 30.5 - 36.0 g/dL 32.9 32.8 32.4 RDW-CV 11.5 - 15.0 % 14.7 14.9 14.6 Platelet Count 150 - 400 k/uL 292 248 234 MPV 9.0 - 12.7 fL 9.2 9.0 9.6 NRBC /100 WBC 0.0 Absolute nRBC <0.01 k/uL <0.01 Neut% % 9.0 10.0 Abs Neut (ANC) 1.45 - 7.50 k/uL 5.14 6.32 Lymph% % 90.0 89.0 Abs Lymph 1.00 - 4.00 k/uL 51.37 (H) 56.22 (H) Tift% % 1.0 1.0 Abs Tift <0.87 k/uL 0.57 0.63 Eosin% % 0.0 0.0 Abs Eosin <0.46 k/uL 0.00 0.00 Baso% % 0.0 0.0 Abs Baso <0.11 k/uL 0.00 0.00 Platelet Estimate Platelet estimate adequate Adequate Red Cell Morph SEE COMMENT Reviewed: unremarkable DTYPE Manual ANC(includeSEG+BAND) k/uL 5.14 Diff Type Manual Diff Protein, Total 6.3 - 8.0 g/dL 5.9 (L) Albumin 3.9 - 4.9 g/dL 3.9 Calcium 8.5 - 10.2 mg/dL 8.3 (L) Bilirubin, Total 0.2 - 1.3 mg/dL 0.4 Alkaline Phosphatase 38 - 113 U/L 73 AST 14 - 40 U/L 14 ALT 10 - 54 U/L 9 (L) Glucose 74 - 99 mg/dL 130 (H) BUN 9 - 24 mg/dL 24 Creatinine 0.73 - 1.22 mg/dL 1.06 Sodium 136 - 144 mmol/L 141 Potassium 3.7 - 5.1 mmol/L 3.7 Chloride 97 - 105 mmol/L 106 (H) CO2 22 - 30 mmol/L 24 Anion Gap 9 - 18 mmol/L 11 eGFR >=60 mL/min/1.73m 74 LD 135 - 225 U/L 143 ASSESSMENT: 77-year-old gentleman with URIOSTEGUI stage 0 chronic lymphocytic leukemia (CD5 positive, [id number] CD38 negative with Light chain restriction) -Asymptomatic with lymphocytosis only. No anemia or thrombocytopenia. -Discussed need for age and gender appropriate cancer screening given increased risk with underlying CLL. -Possible squamous cell carcinoma vs basal cell carcinoma posterior scalp. PLAN: -Continue with observation. -Repeat CBC, CMP, LDH and OV in 6 months. -Referral to dermatology.\ -He will discuss colonoscopy and PSA screening with Dr. Cisneros. Portions of this documentation were copied and pasted from previous office visit notes in order to provide a cohesive continuity of the history. The note has been reviewed and edited and updated as necessary. I spent a total of 30 minutes on the date of the service which included preparing to see the patient, [id number] patient care, completing clinical documentation, obtaining and/or reviewing separately obtained history, performing a medically appropriate examination, counseling and educating the pat ient/family/caregiver, ordering medications, tests, or procedures, communicating with other HCPs (not separately reported), and communicating results to the patient/family/caregiver. Anatoliy Jo DO Cc: Anthony Cisneros MD documented in this encounterChillic[facility]07-11-2022 History of Present illness Narrative* Ludivina Cancino MD - 02/25/2022 4:02 PM EDT PATIENT NAME: Shaggy Casas. [facility] NO: [id number]. ATTENDING PHYSICIAN: Ludivina Cancino MD. DATE OF SERVICE: 02/25/2022 DIAGNOSIS: Chronic lymphatic leukemia HPI: 76-year-old gentleman who presented last year for a hernia repair with a lymphocytosis. He wasreferred to Dr. Emanuel who confirmed his diagnosis of CLL. He has no painful adenopathy, early satiety, hepatosplenomegaly, anemia or thrombocytopenia. He denies fever, chills, night sweat, fatigue or weight loss. He has no family history of leukemia or lymphoma. He does not smoke tobacco or drink alcohol. Interim history: No new complaints. He denies fever, chills, night sweats, fatigue or unexplained weight loss. He has no recurrent infection, early satiety, cough or shortness of breath. No swollen glands or adenopathy. Complain of dizziness especially when he get up too quickly. No headaches or vertigo. Symptom only lasted for several seconds. All medications & allergies updated and reviewed by me. REVIEW OF SYSTEMS: CONSTITUTIONAL: No fevers, chills, nightsweats, unintended weight loss HEENT: Denies frequent or severe heaches, nasal congestion/sinus symptoms, problematic allergy problems. EYES: No diplopia or blurry vision. CARDIOVASCULAR: No chest pain, dyspnea, palpitations, orthopnea, PND, ankle edema. PULM: No dyspnea, unexplained cough. GI: No dysphagia/odynophagia, problematic reflux, constipation, diarrhea, changes in stool habits, hematochezia, melena. : No new urinary complaints, including dysuria, gross hematuria or pyuria. NEURO: No new balance problems, peripheral weakness/paresthesias or numbness of concern. MUSC-SKEL: No new joint pain, swelling, or erythema. PSY: No concerns regarding depression, anxiety or panic. INTEGUMENTARY: No new skin changes (rash, new or changing mole, new growth) PHYSICAL EXAMINATION: 74-year-old well-nourished well-developed gentleman in no acute distress BP 118/65 Pulse 70 Temp (Src) 98 (Temporal) Ht 5' 3 (1.60m) Wt 148 lb 8 oz (67.4kg) [id number]% BMI 26.31 kg/(m^2). HEENT: Head is normocephalic, atraumatic. Sclerae white, conjunctivae pink. PEERL. EOMs are intact. LYMPHATICS: There is no palpable adenopathy in the neck, supraclavicular region, axillae, or groin. LUNGS: Lungs are clear to percussion and auscultation. HEART: Heart is normal without murmurs, gallops, or rubs. ABDOMEN: Soft and nontender without hepatomegaly. No masses can be palpated. Spleen is not palpable EXTREMITIES: Are without edema. NEUROLOGIC: Exam is physiologic LABORATORY DATA: Component Latest Ref Rng & Units 02/25/2022 WBC 3.70 - 11.00 k/uL 63.17 (H) RBC 4.20 - 6.00 m/uL 4.05 (L) Hemoglobin 13.0 - 17.0 g/dL 13.1 Hematocrit 39.0 - 51.0 % 40.0 MCV 80.0 - 100.0 fL 98.8 MCH 26.0 - 34.0 pg 32.3 MCHC 30.5 - 36.0 g/dL 32.8 RDW-CV 11.5 - 15.0 % 14.9 Platelet Count 150 - 400 k/uL 248 MPV 9.0 - 12.7 fL 9.0 NRBC /100 WBC 0.0 Absolute nRBC <0.01 k/uL <0.01 Neut% % 10.0 Abs Neut (ANC) 1.45 - 7.50 k/uL 6.32 Lymph% % 89.0 Abs Lymph 1.00 - 4.00 k/uL 56.22 (H) Tift% % 1.0 Abs Tift <0.87 k/uL 0.63 Eosin% % 0.0 Abs Eosin <0.46 k/uL 0.00 Baso% % 0.0 Abs Baso <0.11 k/uL 0.00 Platelet Estimate Adequate Red Cell Morph Reviewed: unremarkable DTYPE Manual Component Latest Ref Rng & Units 02/25/2022 Protein, Total 6.3 - 8.0 g/dL 5.9 (L) Albumin 3.9 - 4.9 g/dL 3.9 Calcium 8.5 - 10.2 mg/dL 8.3 (L) Bilirubin, Total 0.2 - 1.3 mg/dL 0.4 Alkaline Phosphatase 38 - 113 U/L 73 AST 14 - 40 U/L 14 ALT 10 - 54 U/L 9 (L) Glucose 74 - 99 mg/dL 130 (H) BUN 9 - 24 mg/dL 24 Creatinine 0.73 - 1.22 mg/dL 1.06 Sodium 136 - 144 mmol/L 141 Potassium 3.7 - 5.1 mmol/L 3.7 Chloride 97 - 105 mmol/L 106 (H) CO2 22 - 30 mmol/L 24 Anion Gap 9 - 18 mmol/L 11 eGFR >=60 mL/min/1.73m 74 LD 135 - 225 U/L 143 ASSESSMENT: 76-year-old gentleman with URIOSTEGUI stage 0 chronic lymphocytic leukemia (CD5 positive, [id number] CD38 negative with Light chain restriction) - Asymptomatic with lymphocytosis only. No anemia or thrombocytopenia. PLAN: - Continue with observation - Repeat CBC, CMP, LDH and OV in 1 year. - Drink more fluid and see PCP if dizziness continues & hyperglycemia. Portions of this documentation were copied and pasted from previous office visit notes in order to provide a cohesive continuity of the history. The note has been reviewed and edited and updated as necessary. Ludivina Cancino MD Cc: Anthony Cisneros MD [facility]* Diagnosis CLL (chronic lymphocytic leukemia) (HCC)- Primary Chronic lymphoid leukemia, without mention of having achieved remission documented [facility]* Diagnosis CLL (chronic lymphocytic leukemia) (HCC)- Primary Chronic lymphoid leukemia, without mention of having achieved remission [facility] (chronic lymphocytic leukemia) (HCC)- Primary Chronic lymphoid leukemia, without mention of having achieved remission [facility] Diagnosis CLL (chronic lymphocytic leukemia) (HCC)- Primary Chronic lymphoid leukemia, without mention of having achieved remission Skin lesion Unspecified disorder of skin and subcutaneous tissue [facility] Diagnosis CLL (chronic lymphocytic leukemia) (HCC)- Primary Chronic lymphoid leukemia, without mention of having achieved remission [facility] Diagnosis CLL (chronic lymphocytic leukemia) (HCC)- Primary Chronic lymphoid leukemia, without mention of having achieved remission [facility] Diagnosis CLL (chronic lymphocytic leukemia) (HCC)- Primary Chronic lymphoid leukemia, without mention of having achieved remission [facility] Diagnosis Onset Date Resolution Status Admit Date CAD (coronary artery disease) acute February 22, 2025 2:31pm Hyperlipidemia acute February 22, 2025 2:31pm SVT (supraventricular tachycardia) acute February 22, 2025 2:31pm Status post coronary angioplasty April 15, 2024 chronic February 22, 2025 2:31pm [facility] Work Phone: Reason for referral (narrative)No reason for referral information availableS[facility] Work Phone: Summary Purpose Family History No Family History Records Found Relationship Condition Age at Onset Recorded Date/T [place] mother Malignant neoplasm of breast Unknown Advance Directives No Advanced Directives Records FoundNo Advanced Directives Records Found Chief Complaint and Reason for Visit Chief Complaint Admit Date 9 M FU February 22, 2025 2:31p m Reason for Visit Admit Date CAD (coronary artery disease) February 22, 2025 2:31pm Hyperlipidemia February 22, 2025 2:31p m SVT (supraventricular tachycardia) February 22, 2025 2:31pm Status post coronary angioplasty February 2:31pm Chief Complaint Admit Date 9 M FU February 22, 2025 2:31p m INT LABS March 08, 2025 7:37 am Reason for Visit Admit Date CAD (coronary artery disease) February 22, 2025 2:31pm Hyperlipidemia February 22, 2025 2:31p m Status post coronary angioplasty February 2:31pm SVT (supraventricular tachycardia) February 22, 2025 2:31pm Chief Complaint Admit Date 9 M FU February 22, 2025 2:31p m INT LABS March 08, 2025 7:37 am medication refills May 31, 2025 1 :21pm BP CHECK June 09, 2025 8 :24am Reason for Visit Admit Date CAD (coronary artery disease) February 22, 2025 2:31pm Hyperlipidemia February 22, 2025 2:31p m Status post coronary angioplasty February 2:31pm SVT (supraventricular tachycardia) February 22, 2025 2:31pm CAD (coronary artery disease) May [id number] 1:21pm CLL (chronic lymphocytic leukemia) Octob 2024 1:21pm Dyslipidemia May 31, 2025 1 :21pm History of coronary artery stent placeme nt May 31, 2025 1:21pm Hypertension May 31, 2025 1 :21pm Additional Source Comments Source Comments (unrecognize d section and content) In the event this informatio n is protected by the Federal Confidentiality of Alcohol and Drug Abuse Patient Records regulations: The Federal rules restrict any use of the information to criminally investigate or prosecute any alcohol or drug abuse patient.[facility] the event this information is protected by the Federal Confidentiality of Alcohol and Drug Abuse Patient Records regulations: The Federal rules restrict any use of the information to criminally investigate or prosecute any alcohol or drug abuse patient.[facility] the event this information is protected by the Federal Confidentiality of Alcohol and Drug Abuse Patient Records regulations: The Federal rules restrict any use of the information to criminally investigate or prosecute any alcohol or drug abuse patient.[facility] the event this information is protected by the Federal Confidentiality of Alcohol and Drug Abuse Patient Records regulations: The Federal rules restrict any use of the information to criminally investigate or prosecute any alcohol or drug abuse patient.[facility] the event this information is protected by the Federal Confidentiality of Alcohol and Drug Abuse Patient Records regulations: The Federal rules restrict any use of the information to criminally investigate or prosecute any alcohol or drug abuse patient.[facility] the event this information is protected by the Federal Confidentiality of Alcohol and Drug Abuse Patient Records regulations: The Federal rules restrict any use of the information to criminally investigate or prosecute any alcohol or drug abuse patient.[facility] the event this information is protected by the Federal Confidentiality of Alcohol and Drug Abuse Patient Records regulations: The Federal rules restrict any use of the information to criminally investigate or prosecute any alcohol or drug abuse patient.[facility] the event this information is protected by the Federal Confidentiality of Alcohol and Drug Abuse Patient Records regulations: The Federal rules restrict any use of the information to criminally investigate or prosecute any alcohol or drug abuse patient.[facility] the event this information is protected by the Federal Confidentiality of Alcohol and Drug Abuse Patient Records regulations: The Federal rules restrict any use of the information to criminally investigate or prosecute any alcohol or drug abuse patient.[facility] Center[facility] the event this information is protected by the Federal Confidentiality of Alcohol and Drug Abuse Patient Records regulations: The Federal rules restrict any use of the information to criminally investigate or prosecute any alcohol or drug abuse patient.[facility] Care Teams (unrecognized sec tion and content) [employer] Relationship Specialty Start Date End Date Anthony Cisneros MD [address] [place] [address] PCP - General Family Practice 02/14/21 [employer] Relationship Specialty Start Date End Date Anthony Cisneros MD [address] [place] [address] PCP - General Family Practice 02/14/21 [employer] Relationship Specialty Start Date End Date Zulema Cisneros MD [address] [place] [address] [id number] PCP - General Family Medicine 02/14/21 [employer] Relationship Specialty Start Date End Date Zulema Cisneros MD [address] [place] [address] [id number] PCP - General Family Medicine 02/14/21 [employer] Relationship Specialty Start Date End Date Zulema Cisneros MD [address] [place] [address] [phone] PCP - General Family Medicine 02/14/21 [employer] Relationship Specialty Start Date End Date Zulema Cisneros MD [address] [place] [address] [id number] PCP - General Family Medicine 02/14/21 Team Status: Active Member Role/Relationship Status Dates Dr. Anthony Cisneros MD Primary Care Provider Active Team Status: Inactive Member Role/Relationship Status Dates Dr. Anthony Cisneros MD Primary Care Provider Active Start: February 22, 2025 End: February 22, 2025 Dr. Anthony Cisneros MD Referring Provider Active Start: February 22, 2025 End: February 22, 2025 MARK Solis Attending Provider Active St art: February 22, 2025 End: February 22, 2025 Team Status: Inactive Member Role/Relationship Status Dates Dr. Anthony Cisneros MD Primary Care Provider Active Start: March 08, 2025 End: March 08, 2025 MARK Solis Attending Provider Active St art: March 08, 2025 End: March 08, 2025 MARK Solis Referring Provider Active St art: March 08, 2025 End: March 08, 2025 Team Status: Active Member Role/Relationship Status Dates Dr. Anthony Cisneros MD Primary care physician Active Team Status: Inactive Member Role/Relationship Status Dates Dr. Anthony Cisneros MD Primary care physician Active Start: February 22, 2025 End: February 22, 2025 Dr. Anthony Cisneros MD Referring Provider Active Start: February 22, 2025 End: February 22, 2025 MARK Solis Attending physician Active S tart: February 22, 2025 End: February 22, 2025 Team Status: Inactive Member Role/Relationship Status Dates Dr. Anthony Cisneros MD Primary care physician Active Start: March 08, 2025 End: March 08, 2025 MARK Solis Attending physician Active S tart: March 08, 2025 End: March 08, 2025 MARK Solis Referring Provider Active St art: March 08, 2025 End: March 08, 2025 Team Status: Inactive Member Role/Relationship Status Dates Dr. Anthony Cisneros MD Primary care physician Active Start: May 31, 2025 End: May 31, 2025 Dr. Anthony Cisneros MD Referring Provider Active Start: May 31, 2025 End: May 31, 2025 Dr. Humza Mcgarry MD Attending physician Active Start: May 31, 2025 End: May 31, 2025 Team Status: Active Member Role/Relationship Status Dates Dr. Anthony Cisneros MD Primary care physician Active Start: June 09, 2025 Dr. Humza Mcgarry MD Attending physician Active Start: June 09, 2025 Dr. Humza Mcgarry MD Referring Provider Active Start: June 09, 2025 Team Status: Inactive Member Role/Relationship Status Dates Dr. Anthony Cisneros MD Primary care physician Active Start: June 09, 2025 End: June 09, 2025 Dr. Anthony Cisneros MD Referring Provider Active Start: June 09, 2025 End: June 09, 2025 Dr. Humza Mcgarry MD Attending physician Active Start: June 09, 2025 End: June 09, 2025 Reason for Visit (unrecogniz ed section and content) Reason Comments Established Patient Specialty Diagnoses / Procedures Referred By Contac t Referred To Contact HEMATOLOGY/ONCOLOGY Diagnoses 1 yr office visit with labs CLL (chronic lymphocytic leukemia) Procedures EST SIMPLE (CONSULT TEST TREAT) Ludivina Cancino MD [address] [place] [address] [facility] [address] [place] [address] Referral ID Status Reason Start Date Expiration Date Visits Requested Visits Authorized [id number] Authorized Financial Clearance Required - Self Pay Patient Cleared - Qualified 100% FAS 01/16/2022 04/16/2022 99 99 Reason Comments Results (unrecognized sect ion and content) No Status Records FoundNo Status Records Found INFORMATION SOURCE (unrecogn ized section and content) DATE CREATED AUTHOR 10/31/2024 [facility] DATE CREATED AUTHOR AUTHOR'S ORGANIZ ATION 06/19/2025 [facility] Goals (unrecognized section and content) Goals may be documented in a n alternate sectionGoals may be documented in an alternate sectionGoals may be documented in an alternate section FOR RECORDS PERTAINING TO PATIENTS WHO ARE OR HAVE BEEN ENROLLED IN A CHEMICAL DEPENDENCY/SUBSTANCEABUSE PROGRAM, SOME INFORMATION MAY BE OMITTED. This clinical summary was aggregated from multiple sources. Caution should be exercised in using it in the provision of clinical care. This summary normalizes information from multiple sources, and as a consequence, information in this document may materially change the coding, format and clinical context of patient data. In addition, data may be omitted in some cases. CLINICAL DECISIONS SHOULD BE BASED ON THE PRIMARY CLINICAL RECORDS. [facility]. provides no warranty or guarantee of the accuracy or completeness of information in this document.
--- NOTE | 2025-07-18 08:25 | STRESSREP ---
Stress Test Report Date: 07/15/2025 Procedure: Pharmacologic stress nuclear imaging study Indications: Chest pain Consent: Per the patient Procedure: The patient underwent pharmacologic (Regadenoson 0.4mg ) evaluation with a peak heart rate of 76 beats per minute (53%predicted maximal heart rate) and a peak blood pressure of 140/80 mmHg. The baseline ECG demonstrated sinus rhythm. The peak pharmacologic ECG did not show any ischemic changes. Rare PVCs noted. There was no complaint of chest discomfort during pharmacologic infusion or recovery. The patient was injected with 10.0 millicuries of technetium 99m Cardiolite and subsequently rest SPECT Cardiolite nuclear imaging was obtained in the horizontal long, vertical long, and short axis views. The patient underwent pharmacologic (Regadenoson) evaluation. The patient was injected with 34.0 millicuries of technetium 99m Cardiolite and subsequently stress SPECT Cardiolite nuclear imaging was obtained in the horizontal long, vertical long, and short axis views. A gated Cardiolite study at peak stress was obtained. The examination was stopped secondary to completion of protocol. Rest and stress SPECT Cardiolite nuclear imaging status post realignment, normalization, and attenuation correction demonstrate no fixed or reversible perfusion defects. There is end systolic thickening and brightening. The gated Cardiolite study demonstrates myocardial thickening and inward wall motion. The reported LVEF is 62%. Impression: 1. Pharmacologic (Regadenoson) evaluation 2. Peak pharmacologic ECG with no ischemic changes. 3. Only rare PVCs noted. 5. Rest and stress SPECT Cardiolite nuclear imaging demonstrate relative uniform tracer uptake and myocardial perfusion appearing within normal limits. 6. The gated Cardiolite study reports an LVEF of 62%. This note was generated with [employer] software. It may contain incorrect words, spelling, and punctuation that were not noted in checking the note before signing.
== END | disposition home or self-care (01) ==
LOC: CVS 06:48
PROVIDERS: PCP Family Medicine; Referring Provider Internal Medicine Cardiovascular Disease; Visit Provider Internal Medicine Cardiovascular Disease
DX: I25.10 Atherosclerotic heart disease of native coronary artery without angina pectoris (principal); I10 Essential (primary) hypertension; E78.5 Hyperlipidemia, unspecified; Z95.5 Presence of coronary angioplasty implant and graft
CPT/HCPCS: 78452; 93017; A9500; A4216; J2785